=== PATIENT | male | born 1985 | race Caucasian/White ===

== ENCOUNTER 2017-12-15 08:28 | Outpatient (RCR) | payer BC, OTHER ==
[~2017-12-15 08:28] MED LIST: ACYC-1 PO; ALB18R INH; AZIT-18 PO; BONIVA; FAMO20TA28 PO; GLUC1TAB13 PO; HYDR473S4 PO; KET10 PO; LEVO500T PO; LOR5/325 PO; MULT1TAB64 PO; NOR10/325 PO; NYQUIL; OMEP20CA68 PO; PANT40TA65 PO; PRE1 PO; PRED-420 PO; SULF-198 PO; TACR1CAP15 PO; TACR5CAP PO; TACR5CAP13 PO; VALA100062 PO; [UNRECOGNIZED DRUG - OTHER]
[2017-12-15 08:34] VITALS: BP 137/88
[2017-12-15] MEDS ORDERED: AZIT-17 PO (09:03)
[2017-12-15] MEDS ORDERED: PANT40TA65 PO (09:03)
[2017-12-15] MEDS ORDERED: TACR5CAP PO (09:03)
[2017-12-15 09:41] LABS: PLATELET COUNT, AUTOMATED 360 K/uL (150-450)
--- NOTE | 2017-12-15 12:22 | ONC Progress Note - NP.Halsey ---
Patient History Date of Service Dec 15, 2017 Reason For Visit/HPI Patient is seen in the clinic today for follow-up of his acute lymphoblastic leukemia, status post chemotherapy and allogeneic bone marrow transplant currently in remission. Patient also is followed for graft versus host disease. In addition a short reports that he traveled back from [place] and over the last several days has had cough and congestion, he can hear the wheezing in his lower right lung and generally has increased fatigue and is not feeling well. He denies any bone aches no sinus congestion or runny nose. Patient is not sure if he's had any fever he denies any chills. All other systems are within normal limits and without change. Patient does have 3 skin lesions 1 on his neck on the right side one on the left side and one in the middle of his back that appear to be dry patchy areas and then with scratching" bleeding and then scab over and have not healed in over a year. Patient has not seen dermatology for these. Problem List (1) GERD (gastroesophageal reflux disease) (2) Pneumonia (3) Vozre-rchrdz-swio disease (4) Acute lymphoblastic leukemia (ALL) in remission Oncology History The patient is a 32-year-old male who was diagnosed in April 2003 with acute lymphoblastic leukemia and, as per patient, he was treated with chemotherapy for seven months, but he did not have any maintenance therapy after that. He had a relapse in April 2006, treated with chemotherapy for one month followed by allogenic bone marrow transplant from his sister, who was a donor, and, as per patient, he had his treatment at [facility]. He developed graft versus host disease and was on immunosuppressant, which was discontinued by the patient two and a half years ago. He moved to [place] in July 2013. He has been seen by Marizol Taylor PA-C, his primary care Psychosocial History Social History The patient is . He does not have children of his own but they have a foster child who is approximately 8 months old. 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 He is exposed to dust, diesel exhaust, solvents, brake flask cleaner. He denies any abuse of tobacco, alcohol or drugs. Smoking History: No Smoking Status: Never Smoker Exposure to Second Hand Smoke?: No Medications and Allergies Active Scripts Azithromycin (Z-PACK) 250 Mg Tablet, 0 PO QDAY, #6 DOSE-PACK Prov:DENISSE WILSON-BC, ONC 12/15/17 Tacrolimus (TACROLIMUS) 5 Mg Capsule, 5 MG PO DAILY for 90 Days, #90 CAPSULE 3 Refills Prov:DENISSE WILSON Oh BROWN, ONC 12/15/17 Pantoprazole Sodium (PANTOPRAZOLE SODIUM) 40 Mg Tablet.dr, 1 TAB PO QDAY for 90 Days, #90 TAB 3 Refills Take 1 tab 30 mins before breakfast. Prov:ALONZO WILSONBATSHEVA BROWN, ONC 12/15/17 Allergies: Coded Allergies: amphotericin B (Verified Allergy, Severe, ANAPHYLAXIS, 12/17/16) Penicillins (Verified Allergy, Mild, RASH, 12/17/16) A CHILD AGE 4 Review of System/Physical Exam Review of Systems All Systems Reviewed/Normal: Yes, Except as Noted Constitutional: Positive for Recent Infection Respiratory: Positive for Cough, Positive for Expectoration, Positive for Shortness of Breath, Positive for Wheezing HEENT: Other (ear pain in his left ear experienced with traveling in an airplane, this is resolved) Hematologic: Positive for Fatigue, Positive for Weakness Skin: Positive for Other (3 skin lesions that are keratotic and will not heal. Patient is referred to dermatology) Physical Exam Vital Signs Temperature: 97.6 Pulse: 111 BP Systolic: 137 BP Diastolic: 88 Respiratory Rate: 16 O2 SAT: 94 O2 Delivery: Height (inches) 66.00 Weight lb: 131 Weight oz: 6.0 Weight Kg (Constantine): Pain: 0 ECOG Score: 1 General: Stable, Well Developed, Well Nourished, Not In Acute Distress, Other ( it appears that patient does not feel well) HEENT: No Trauma, No Conjunctivitis, No Icterus, No Mucositis, No Oral Thrush, No Sinus Tenderness, Other (bilateral ear canals are unremarkable) Neck: Supple Lungs: Not Clear to Auscultation (right lower lobe and right upper lobe wheezing with inhalation and exhalation decreased lung sounds in the left lower lobe that are distant) Heart: Regular Rate, Regular Rhythm, No Gallops Abdomen: Soft and Nontender, No Hepatosplenomegaly Extremities: No Cyanosis, No Clubbing, No Edema Lymphadenopathy: No Cervical, No Subclavicular Psychiatric: Mood appears normal, Affect appears normal Skin: Other (30.5-1 mm lesions over the neck presenting as a keratotic lesion and have been scratched and are currently scabbed over. Patient reports that they have not healed and over a year.) Diagnostic Studies Diagnostic Studies Laboratory Laboratory Tests 12/15/17 09:15 Laboratory Tests 12/15/17 09:15: White Blood Count 13.0, Red Blood Count 5.01, Hemoglobin 15.6, Hematocrit 45.7, Mean Corpuscular Volume 91.2, Mean Corpuscular Hemoglobin 31.2, Mean Corpuscular Hemoglobin Concent 34.2, Red Cell Distribution Width 14.1, Platelet Count 360, Mean Platelet Volume 7.3, Neutrophils (%) (Auto) 54.8, Lymphocytes (% ) (Auto) 34.2, Monocytes (%) (Auto) 8.7, Eosinophils (%) (Auto) 1.5, Basophils ( %) (Auto) 0.8, Nucleated RBC Relative Count (auto) 0.0, Neutrophils # (Auto) 7.1 , Lymphocytes # (Auto) 4.4, Monocytes # (Auto) 1.1, Eosinophils # (Auto) 0.2, Basophils # (Auto) 0.1, Nucleated RBC Absolute Count (auto) 0.00, Sodium Level 138, Potassium Level 4.2, Chloride Level 100, Carbon Dioxide Level 24, Blood Urea Nitrogen 11, Creatinine 0.70, Glomerular Filtration Rate Calc > 60.0, Random Glucose 93, Uric Acid 5.5, Calcium Level 9.4, Total Bilirubin 0.4, Aspartate Amino Transf (AST/SGOT) 29, Alanine Aminotransferase (ALT/SGPT) 80, Alkaline Phosphatase 95, Lactate Dehydrogenase 451, Total Protein 7.4, Albumin 4.0 Assessment and Plan Assessment & Plan 1. Acute lymphoblastic leukemia, status post chemotherapy in 2002 with relapse in 2005, status post chemotherapy followed by allogeneic bone marrow transplant , currently in remission. His CBC previously has been totally normal. WBC is elevated today. Patient has cough, wheezing and generally is not feeling well. I will treat him with a Z-Sathya and if symptoms do not resolve he is to return to the clinic and we will do a chest x-ray. Patient will follow with Dr. Ann in 6 months with CBC, CMP, LDH and uric acid. Patient and verbalized understanding. 2. 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 The patient currently is on treatment with Prograf with control of his chronic fceqv-zkmqaw-gzba disease. We will continue the same dose. 3. High total protein with no monoclonal protein by serum protein electrophoresis. There was a faint band in the IgG lambda, which would be suggestive of a monoclonal protein or immune response, or it could be due to his chronic boyxu-hbofcj-mtas disease. We will continue to monitor. His total protein previously was 8.3 and is normal at 7.4 today. 4. Depression. I am planning to put him on Cymbalta, which he used in the past when he was depressed, 60 mg daily. No change in this dose today. PLAN 1. Cymbalta 60 mg daily. 2. Prograf 5 mg daily. Refilled today 3. Protonix 40 mg daily. Refilled today. 4. The patient is to return in 6 months with CBC, chemistry panel, LDH, and uric acid. 5. The patient is to contact us for any new concerns or complaints. I personally spent a total of 30 minutes. Of that 30 minutes was counseling/ coordination of patient's care. See my note above for details. Copies to: MARIZOL TAYLOR PA-C, NANCY J WELT EDGE ROUNDER-BC, ONC Dec 15, 2017 12:22
== END 2017-12-16 07:36 | disposition home or self-care (01) ==
LOC: ONC 08:28
PROVIDERS: ATTEND Internal Medicine Hematology
DX: C91.01 Acute lymphoblastic leukemia, in remission (principal); Z92.21 Personal history of antineoplastic chemotherapy; D89.811 Chronic graft-versus-host disease; F32.9 Major depressive disorder, single episode, unspecified; Z79.899 Other long term (current) drug therapy; R05 Cough; R06.02 Shortness of breath; R53.83 Other fatigue; R53.1 Weakness
CPT/HCPCS: 36415; 82040; 82247; 82310; 82374; 82435; 82565; 82947; 83615; 84075; 84132; 84155; 84295; 84450; 84460; 84520; 84550; 85025; 99212

== ENCOUNTER 2018-01-20 19:22 | Emergency (ER) | payer SELFPAY ==
[~2018-01-20 19:22] MED LIST changes: +AZIT-17 PO
--- NOTE | 2018-01-20 20:04 | ER Report ---
History and Physical Time Seen By MD: 19:53 Hx. of Stated Complaint: patient states that this afternoon he spiked a fever of 103; patient also fells "terrible" all over and vomited on the car ride here HPI/ROS CHIEF COMPLAINT: Fever, fatigue, SOB HISTORY OF PRESENT ILLNESS: 32 yo male presents with complaints of fever, chills , body aches, and SOB that started today. Pt states that his fever at home was 103.0. Pt denies cough or nasal congestion. Pt states nausea and reported vomiting while at ER waiting for assessment. Denies vomiting. Pt reports taking acetaminophen with minimal relief. Pt reports he had been previously treatment for pneumonia in November,. REVIEW OF SYSTEMS: Respiratory: No cough, complaints of SOB without exertion. Cardiovascular: No chest pain, no palpitations. Gastrointestinal: States vomiting, no abdominal pain. Musculoskeletal: No back pain. Allergies: Coded Allergies: amphotericin B (Verified Allergy, Severe, ANAPHYLAXIS, 12/17/16) Penicillins (Verified Allergy, Mild, RASH, 12/17/16) A CHILD AGE 4 Home Meds Active Scripts Promethazine Hcl (PROMETHAZINE HCL) 25 Mg Tablet, 25 MG PO Q8H Y for NAUSEA/ VOMITING, #12 TAB Prov:CHICO CHÁVEZ [facility] 01/20/18 Levofloxacin 750 Mg Tab (LEVAQUIN 750 MG TAB) 750 Mg Tablet, 750 MG PO DAILY, # 9 TAB Prov:CHICO CHÁVEZ [facility] 01/20/18 Tacrolimus (TACROLIMUS) 5 Mg Capsule, 5 MG PO DAILY for 90 Days, #90 CAPSULE 3 Refills Prov:DENISSE WILSON-SUSSY, ONC 12/15/17 Pantoprazole Sodium (PANTOPRAZOLE SODIUM) 40 Mg Tablet.dr, 1 TAB PO QDAY for 90 Days, #90 TAB 3 Refills Take 1 tab 30 mins before breakfast. 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 Patient has surgical history of port placement 2, bone marrow transplant, bone marrow biopsy. Reviewed Nurses Notes: Yes Hx Smoking: No Smoking Status: Never Smoker Exposure to Second Hand Smoke?: No Hx Substance Use Disorder: No Hx Alcohol Use: No Constitutional Vital Sign - Last 24 Hours 01/20/18 01/20/18 01/20/18 01/20/18 19:26 19:56 20:00 20:05 Temp 99.8 98.1 Pulse 134 Resp 20 B/P (MAP) 113/81 124/96 (105) 118/83 (95) Pulse Ox 93 O2 Delivery Room Air 01/20/18 01/20/18 01/20/18 01/20/18 20:22 20:30 20:52 21:02 Pulse 138 134 B/P (MAP) 114/83 (93) 127/87 (100) Pulse Ox 95 94 01/20/18 01/20/18 01/20/18 01/20/18 21:07 21:28 21:30 21:37 Pulse 132 133 143 B/P (MAP) 125/87 (100) Pulse Ox 94 94 92 01/20/18 01/20/18 01/20/18 01/20/18 22:00 22:05 22:35 22:40 Pulse 141 138 135 B/P (MAP) 121/85 (97) Pulse Ox 90 90 01/20/18 01/20/18 01/20/18 22:57 22:59 23:02 Temp 98.3 Pulse 134 B/P (MAP) 117/69 (85) Pulse Ox 88 Physical Exam General Appearance: The patient is alert, has no immediate need for airway protection and no current signs of toxicity. Eyes: Pupils equal and round no injection. Respiratory: Chest is non tender, lungs are diminished in bilateral bases to auscultation. Cardiac: regular rate and rhythm Gastrointestinal: Abdomen is soft and non tender, no masses, bowel sounds normal. Musculoskeletal: Neck: Neck is supple and non tender. Extremities have full range of motion and are non tender. Skin: No rashes or lesions. DIFFERENTIAL DIAGNOSIS: After history and physical exam differential diagnosis was considered for influenza, pneumonia, or lower respiratory infection. Medical Decision Making Data Points Result Diagram: 01/20/18211801/20/182118 Laboratory Hematology Test 01/20/18 19:10 01/20/18 21:19 01/20/18 22:36 Influenza Virus Type A (PCR) Negative (NEGATIVE) Influenza Virus Type B (PCR) Negative (NEGATIVE) Red Blood Count 4.50 M/uL (4.00-5.60) Mean Corpuscular Volume 91.3 fL (80.0-96.0) Mean Corpuscular Hemoglobin 32.3 pg (26.0-33.0) Mean Corpuscular Hemoglobin Concent 35.3 g/dL (32.0-36.0) Red Cell Distribution Width 14.0 % (11.5-14.5) Mean Platelet Volume 7.1 fL (7.2-11.1) Neutrophils (%) (Auto) 92.2 % (39.4-72.5) Lymphocytes (%) (Auto) 7.1 % (17.6-49.6) Monocytes (%) (Auto) 0.5 % (4.1-12.4) Eosinophils (%) (Auto) 0.0 % (0.4-6.7) Basophils (%) (Auto) 0.2 % (0.3-1.4) Nucleated RBC Relative Count (auto) 0.0 /100WBC Neutrophils # (Auto) 15.0 K/uL (2.0-7.4) Lymphocytes # (Auto) 1.2 K/uL (1.3-3.6) Monocytes # (Auto) 0.1 K/uL (0.3-1.0) Eosinophils # (Auto) 0.0 K/uL (0.0-0.5) Basophils # (Auto) 0.0 K/uL (0.0-0.1) Nucleated RBC Absolute Count (auto) 0.00 K/uL Sodium Level 137 mmol/L (137-145) Potassium Level 3.1 mmol/L (3.5-5.0) Chloride Level 108 mmol/L (98-107) Carbon Dioxide Level 20 mmol/L (22-30) Blood Urea Nitrogen 9 mg/dl (9-21) Creatinine 0.70 mg/dl (0.66-1.25) Glomerular Filtration Rate Calc > 60.0 Random Glucose 86 mg/dl (75-110) Calcium Level 6.8 mg/dl (8.4-10.2) Total Bilirubin 0.7 mg/dl (0.2-1.3) Aspartate Amino Transf (AST/SGOT) 23 U/L (0-35) Alanine Aminotransferase (ALT/SGPT) 62 U/L (0-56) Alkaline Phosphatase 76 U/L (0-126) Total Protein 5.6 gm/dl (6.3-8.2) Albumin 2.9 g/dl (3.5-5.0) Lactate 2.2 mmol/L (0.7-2.1) Chemistry Test 01/20/18 19:10 01/20/18 21:19 01/20/18 22:36 Influenza Virus Type A (PCR) Negative (NEGATIVE) Influenza Virus Type B (PCR) Negative (NEGATIVE) White Blood Count 16.3 k/uL (4.5-11.0) Red Blood Count 4.50 M/uL (4.00-5.60) Hemoglobin 14.5 g/dL (14.0-18.0) Hematocrit 41.0 % (42.0-52.0) Mean Corpuscular Volume 91.3 fL (80.0-96.0) Mean Corpuscular Hemoglobin 32.3 pg (26.0-33.0) Mean Corpuscular Hemoglobin Concent 35.3 g/dL (32.0-36.0) Red Cell Distribution Width 14.0 % (11.5-14.5) Platelet Count 312 K/uL (150-450) Mean Platelet Volume 7.1 fL (7.2-11.1) Neutrophils (%) (Auto) 92.2 % (39.4-72.5) Lymphocytes (%) (Auto) 7.1 % (17.6-49.6) Monocytes (%) (Auto) 0.5 % (4.1-12.4) Eosinophils (%) (Auto) 0.0 % (0.4-6.7) Basophils (%) (Auto) 0.2 % (0.3-1.4) Nucleated RBC Relative Count (auto) 0.0 /100WBC Neutrophils # (Auto) 15.0 K/uL (2.0-7.4) Lymphocytes # (Auto) 1.2 K/uL (1.3-3.6) Monocytes # (Auto) 0.1 K/uL (0.3-1.0) Eosinophils # (Auto) 0.0 K/uL (0.0-0.5) Basophils # (Auto) 0.0 K/uL (0.0-0.1) Nucleated RBC Absolute Count (auto) 0.00 K/uL Glomerular Filtration Rate Calc > 60.0 Calcium Level 6.8 mg/dl (8.4-10.2) Total Bilirubin 0.7 mg/dl (0.2-1.3) Aspartate Amino Transf (AST/SGOT) 23 U/L (0-35) Alanine Aminotransferase (ALT/SGPT) 62 U/L (0-56) Alkaline Phosphatase 76 U/L (0-126) Total Protein 5.6 gm/dl (6.3-8.2) Albumin 2.9 g/dl (3.5-5.0) Lactate 2.2 mmol/L (0.7-2.1) Microbiology Microbiology Date/Time Source Procedure Growth Status 01/20/18 22:36 Blood Blood Culture - Final Resulted 01/20/18 22:36 Blood Blood Culture - Preliminary Resulted 01/20/18 21:14 Blood Blood Culture - Final Resulted 01/20/18 21:14 Blood Blood Culture - Preliminary Resulted EKG/Imaging Imaging 2 VIEWS CHEST INDICATION: Shortness of breath and vomiting. COMPARISON: 10/30/2015. FINDINGS: Cardiomediastinal silhouette and pulmonary vessels within normal limits. There is no focal infiltrate or lobar consolidation. There is no pneumothorax or pleural effusion. Scarring is again seen right lower lobe. No discrete nodule. Upper abdomen is unremarkable. No acute bony abnormality. Stable compressions of several vertebral bodies at thoracolumbar junction. Small tubing is seen in the soft tissues of the left upper chest. This is unchanged. IMPRESSION: 1. No acute cardiopulmonary process. Report Dictated By: Lizandro Olivo at 01/20/2018 9:21 PM Report E-Signed By: Lizandro Olivo at 01/20/2018 9:23 PM ED Course/Re-evaluation ED Course Patient was admitted on exam room, history and physical were obtained. Differential diagnoses were considered. On examination lungs are clear, heart is regular, abdomen is soft nontender. A CBC, CMP, influenza screen were done. Influenza screen was negative. CBC showed an elevated white count of 16,000 with a left shift. CMP was unremarkable. Chest x-ray was read by the radiologist as no acute cardiopulmonary processes. However little to there does appear to be a infiltrate developing in the right upper lobe. I discussed findings with patient. Patient states he still feeling ill. Patient this time is received 2 L of normal saline. I decided that we would get a second blood culture, as well as a lactate at this time. Lactate came back at 2.2. He is slightly elevated. I discussed the case with Dr. Cooper, hospitals, I discussed with him the patient prefer not to be admitted to the hospital, the my plan was to discharge the patient home with follow-up with his primary care provider on Thursday. Dr. Cooper felt that that would be a reasonable plan with this patient. I discussed this with the patient. I expressed that they should have a very low threshold to return to the emergency room. I would like him to follow-up with Marizol Taylor PA-C on Thursday. They're to return if condition worsens at all. Patient is verbalized understanding and agreement. We'll go ahead and discharge patient home at this time. He will receive a dose of Levaquin here in the emergency room and we will continue that at home. Decision to Disposition Date: Jan 20, 2018 Decision to Disposition Time: 23:17 Depart Departure Latest Vital Signs Vital Signs Date Time Temp Pulse Resp B/P (MAP) Pulse Ox O2 Delivery O2 Flow Rate FiO2 01/20/18 23:02 134 88 01/20/18 22:59 98.3 01/20/18 22:57 117/69 (85) 01/20/18 19:26 20 Room Air Impression: Primary Impression: Pneumonia Condition: Improved Disposition: HOME OR SELF-CARE Referrals: MARIZOL TAYLOR PA-C (PCP) New Scripts Promethazine Hcl (PROMETHAZINE HCL) 25 Mg Tablet 25 MG PO Q8H Y for NAUSEA/VOMITING, #12 TAB Prov: CHICO CHÁVEZ 01/20/18 Levofloxacin 750 Mg Tab (LEVAQUIN 750 MG TAB) 750 Mg Tablet 750 MG PO DAILY, #9 TAB Prov: CHICO CHÁVEZ 01/20/18 Patient Instructions: Community Acquired Pneumonia (ED) Additional Instructions: Increase fluid intake. Get plenty of rest. Take Tylenol or Ibuprofen as needed for pain. Follow up with your primary care provider on Thursday. Return to the ER if condition worsens, have a low threshold for returning to the clinic. Problem Qualifiers Primary Impression: Pneumonia Pneumonia type: due to unspecified organism Laterality: right Lung location : upper lobe of lung Qualified Codes: J18.1 - Lobar pneumonia, unspecified organism CHICO CHÁVEZ Jan 20, 2018 20:04
[2018-01-20 21:24] LABS: PLATELET COUNT, AUTOMATED 312 K/uL (150-450)
--- NOTE | 2018-01-20 21:26 | RADIOLOGY IMAGING REPORT ---
FACILITY: [facility] PATIENT NAME: Lucio Lloyd : 1985 MR: [id number] V: [id number] EXAM DATE: ORDERING PHYSICIAN: CHICO CHÁVEZ TECHNOLOGIST: Location: [facility] - [place] Patient: Lucio Lloyd : 1985 Visit/Account:[id number] Date of Sevice: 01/20/2018 2 VIEWS CHEST INDICATION: Shortness of breath and vomiting. COMPARISON: 10/30/2015. FINDINGS: Cardiomediastinal silhouette and pulmonary vessels within normal limits. There is no focal infiltrate or lobar consolidation. There is no pneumothorax or pleural effusion. Scarring is again seen right lower lobe. No discrete nodule. Upper abdomen is unremarkable. No acute bony abnormality. Stable compressions of several vertebral alden dies at thoracolumbar junction. Small tubing is seen in the soft tissues of the left upper chest. Thi s is unchanged. IMPRESSION: 1. No acute cardiopulmonary process. Report Dictated By: Lizandro Olivo at 01/20/2018 9:21 PM Report E-Signed By: Lizandro Olivo at 01/20/2018 9:23 PM WSN:[id number]
[2018-01-20] MEDS ORDERED: ACETAMINOPHEN 500 MG TAB PO ONE (21:30)
[2018-01-20] MEDS ORDERED: ONDANSETRON 4 MG/2 ML VIAL IVP ONE (21:30)
[2018-01-20] MEDS ORDERED: ACETAMINOPHEN(*)1000 MG/100 ML 100 ML IVPB ONE (21:40)
[2018-01-20 22:57] VITALS: BP 117/69
[2018-01-20] MEDS ORDERED: ONDANSETRON 4 MG ODT TH SL ONE (23:10)
[2018-01-20] MEDS ORDERED: LEVOFLOXACIN 750 MG TAB PO ONE (23:10)
[2018-01-20] MEDS ORDERED: LEVO750T44 PO (23:15)
[2018-01-20] MEDS ORDERED: PROM-110 PO (23:15)
[2018-01-21] MEDS ORDERED: NS(*) 0.9% 1000 ML BAG 1,000 ML IV ONE ×2 (01:20)
== END 2018-01-20 23:40 | disposition home or self-care (01) ==
LOC: ER 20:03
DX: J18.1 Lobar pneumonia, unspecified organism (principal); B95.5 Unspecified streptococcus as the cause of diseases classified elsewhere
CPT/HCPCS: 36415; 71046; 83605; 85025; 87040; 87502; 96374; 96375; 99284; J0131; J2405; J7030; S0119; 82040; 82247; 82310; 82374; 82435; 82565; 82947; 84075; 84132; 84155; 84295; 84450; 84460; 84520; 87077

== ENCOUNTER 2018-01-21 09:54 | Inpatient (IN) | payer OTHER ==
[2018-01-21] VITALS (32 sets, daily range): BP systolic 65–119; BP diastolic 44–90
[~2018-01-21] VITALS: Ht 167.6 cm; Wt 68.9 kg
[~2018-01-21 09:54] MED LIST changes: +LEVO750T44 PO; +PROM-110 PO
--- NOTE | 2018-01-21 10:03 | ER Report ---
History and Physical Time Seen By MD: 10:00 HPI/ROS CHIEF COMPLAINT: Fever, positive blood cultures HISTORY OF PRESENT ILLNESS: Patient is a 32-year-old male with past medical history significant for acute lymphocytic leukemia. Status post bone marrow transplant approximately 12 years ago. He was seen in the emergency department last night for fever of 103 with shaking chills and elevated white count at 16, 000. No specific source of infection was found however there were some concern about possible developing infiltrate in the right upper lobe of the lung. Please see the note from 01/20/2018 for specifics for that visit. Patient was given IV Levaquin at that time case was discussed with the on-call hospitalist as patient wanted to try to be treated at home. Plan was formulated that he would be placed on oral Levaquin as an outpatient and follow-up closely. I was informed by nursing staff that he had 2 positive blood cultures this morning and I directed nursing staff to have the patient come back for admission. Patient was found to be tachycardic and hypotensive initially on admission with some confusion. In any of his antibiotics yet. Patient is feeling weak . Denies any chest pain or pressure. Denies abdominal pain nausea vomiting or diarrhea. REVIEW OF SYSTEMS: Constitutional: No fever, no chills. Eyes: No discharge. ENT: No sore throat. Cardiovascular: No chest pain, no palpitations. Respiratory: No cough, no shortness of breath. Gastrointestinal: No abdominal pain, no vomiting. Genitourinary: No hematuria. Musculoskeletal: No back pain. Skin: No rashes. Neurological: No headache. Allergies: Coded Allergies: amphotericin B (Verified Allergy, Severe, ANAPHYLAXIS, 12/17/16) Penicillins (Verified Allergy, Mild, RASH, 12/17/16) A CHILD AGE 4 Home Meds Active Scripts Tacrolimus (TACROLIMUS) 5 Mg Capsule, 5 MG PO DAILY for 90 Days, #90 CAPSULE 3 Refills Prov:DENISSE WILSON-BC, ONC 12/15/17 Pantoprazole Sodium (PANTOPRAZOLE SODIUM) 40 Mg Tablet.dr, 1 TAB PO QDAY for 90 Days, #90 TAB 3 Refills Take 1 tab 30 mins before breakfast. Prov:DENISSE WILSON-SUSSY, ONC 12/15/17 Discontinued Scripts Promethazine Hcl (PROMETHAZINE HCL) 25 Mg Tablet, 25 MG PO Q8H Y for NAUSEA/ VOMITING, #12 TAB Prov:CHICO CHÁVEZ ACCOUNT SUPPORT MANAGER 01/20/18 Levofloxacin 750 Mg Tab (LEVAQUIN 750 MG TAB) 750 Mg Tablet, 750 MG PO DAILY, # 9 TAB Prov:CHICO CHÁVEZ ACCOUNT SUPPORT MANAGER 01/20/18 Azithromycin (Z-PACK) 250 Mg Tablet, 0 PO QDAY, #6 DOSE-PACK Prov:DENISSE WILSON ACCOUNT SUPPORT MANAGER-BC, ONC 12/15/17 Past Medical/Surgical History Acute lymphocytic anemia Hx Smoking: No Smoking Status: Never Smoker Exposure to Second Hand Smoke?: No Hx Substance Use Disorder: No Hx Alcohol Use: No Constitutional Vital Sign - Last 24 Hours 01/21/18 01/21/18 01/21/18 01/21/18 10:05 10:11 10:14 10:16 Temp 97.6 Pulse 124 128 Resp 16 24 B/P (MAP) 75/46 85/52 (63) 85/58 (67) Pulse Ox 91 94 O2 Delivery Room Air 01/21/18 01/21/18 01/21/18 01/21/18 10:19 10:20 10:24 10:29 Pulse 126 132 126 Resp 27 26 23 B/P (MAP) 70/53 (59) Pulse Ox 93 95 90 01/21/18 01/21/18 01/21/18 01/21/18 10:30 10:34 10:39 10:40 Pulse 128 125 Resp 16 B/P (MAP) 86/45 (59) 74/43 (53) Pulse Ox 90 92 01/21/18 01/21/18 01/21/18 01/21/18 10:49 10:50 10:55 11:00 Pulse 124 205 128 Resp 13 29 16 B/P (MAP) 67/49 (55) 85/50 (62) Pulse Ox 93 87 93 01/21/18 01/21/18 11:05 11:10 Pulse 134 131 Resp 28 42 B/P (MAP) 101/57 (72) Pulse Ox 91 89 Physical Exam General/Constitutional: Patient is awake, alert, ill-appearing but in no acute respiratory distress Head: Normocephalic and atraumatic. Eyes: Conjunctival clear, Pupils are equal and reactive to light. Extraocular muscles are intact and symmetrical. Sclera are clear and anicteric. Ears:External canals are clear. Tympanic membranes are clear with normal landmarks and light reflex. Nares: No rhinorrhea or bleeding. Turbinates are pink and moist. Oropharyngeal: Mucous membranes are moist. There is no pharyngeal erythema or exudate. There are no palatal petechiae. Uvula is midline and symmetrical. Neck: Supple, no adenopathy. Cardiovascular: Heart is regular rate and rhythm without audible murmurs, rubs or gallops. Pulmonary: Lungs are clear to auscultation bilaterally. There are no wheezes, rales, or rhonchi. Chest rise is symmetrical Abdomen: Soft, nontender, no guarding or peritoneal signs. Extremities: No gross deformities, No peripheral cyanosis. Able to move all 4 extremities. Neuro: Alert and oriented X3, global weakness but no focal neurological deficits Skin: No rashes, skin is warm dry and well perfused. Medical Decision Making Data Points Result Diagram: 01/21/18 1027 01/21/18 1332 Laboratory Hematology Test 01/21/18 10:27 01/21/18 11:10 Red Blood Count 4.54 M/uL (4.00-5.60) Mean Corpuscular Volume 92.9 fL (80.0-96.0) Mean Corpuscular Hemoglobin 32.5 pg (26.0-33.0) Mean Corpuscular Hemoglobin Concent 35.0 g/dL (32.0-36.0) Red Cell Distribution Width 14.6 % (11.5-14.5) Mean Platelet Volume 7.7 fL (7.2-11.1) Neutrophils (%) (Auto) 98.2 % (39.4-72.5) Lymphocytes (%) (Auto) 1.4 % (17.6-49.6) Monocytes (%) (Auto) 0.2 % (4.1-12.4) Eosinophils (%) (Auto) 0.0 % (0.4-6.7) Basophils (%) (Auto) 0.2 % (0.3-1.4) Nucleated RBC Relative Count (auto) 0.1 /100WBC Neutrophils # (Auto) 16.3 K/uL (2.0-7.4) Lymphocytes # (Auto) 0.2 K/uL (1.3-3.6) Monocytes # (Auto) 0.0 K/uL (0.3-1.0) Eosinophils # (Auto) 0.0 K/uL (0.0-0.5) Basophils # (Auto) 0.0 K/uL (0.0-0.1) Nucleated RBC Absolute Count (auto) 0.02 K/uL Prothrombin Time 17.8 seconds (12.0-14.4) Prothromb Time International Ratio 1.45 Activated Partial Thromboplast Time 40 seconds (23-35) Total Bilirubin 0.9 mg/dl (0.2-1.3) Aspartate Amino Transf (AST/SGOT) 54 U/L (0-35) Alanine Aminotransferase (ALT/SGPT) 74 U/L (0-56) Alkaline Phosphatase 93 U/L (0-126) Troponin I 0.022 ng/ml Total Protein 6.3 gm/dl (6.3-8.2) Albumin 3.5 g/dl (3.5-5.0) Urine Color Corie Urine Clarity Cloudy Urine pH 5.0 pH (4.8-9.5) Urine Specific Pooler 1.029 Urine Protein 30 mg/dL (NEGATIVE) Urine Glucose (UA) Negative mg/dL (NEGATIVE) Urine Ketones Trace mg/dL (NEGATIVE) Urine Blood Negative (NEGATIVE) Urine Nitrite Negative (NEGATIVE) Urine Bilirubin Small (NEGATIVE) Urine Urobilinogen 4.0 mg/dL (0.2-1.9) Urine Leukocyte Esterase Negative (NEGATIVE) Urine RBC <1 /HPF (0-2/HPF) Urine WBC 6 /HPF (0-5/HPF) Urine Squamous Epithelial Cells None /LPF (NONE-FEW) Urine Amorphous Crystals Few /HPF Urine Bacteria Few /HPF (NONE-FEW) Urine Hyaline Casts Many /LPF (NONE-FEW) Urine Mucus Few /HPF (NONE-FEW) Chemistry Test 01/21/18 10:27 01/21/18 11:10 White Blood Count 16.6 k/uL (4.5-11.0) Red Blood Count 4.54 M/uL (4.00-5.60) Hemoglobin 14.7 g/dL (14.0-18.0) Hematocrit 42.2 % (42.0-52.0) Mean Corpuscular Volume 92.9 fL (80.0-96.0) Mean Corpuscular Hemoglobin 32.5 pg (26.0-33.0) Mean Corpuscular Hemoglobin Concent 35.0 g/dL (32.0-36.0) Red Cell Distribution Width 14.6 % (11.5-14.5) Platelet Count 218 K/uL (150-450) Mean Platelet Volume 7.7 fL (7.2-11.1) Neutrophils (%) (Auto) 98.2 % (39.4-72.5) Lymphocytes (%) (Auto) 1.4 % (17.6-49.6) Monocytes (%) (Auto) 0.2 % (4.1-12.4) Eosinophils (%) (Auto) 0.0 % (0.4-6.7) Basophils (%) (Auto) 0.2 % (0.3-1.4) Nucleated RBC Relative Count (auto) 0.1 /100WBC Neutrophils # (Auto) 16.3 K/uL (2.0-7.4) Lymphocytes # (Auto) 0.2 K/uL (1.3-3.6) Monocytes # (Auto) 0.0 K/uL (0.3-1.0) Eosinophils # (Auto) 0.0 K/uL (0.0-0.5) Basophils # (Auto) 0.0 K/uL (0.0-0.1) Nucleated RBC Absolute Count (auto) 0.02 K/uL Prothrombin Time 17.8 seconds (12.0-14.4) Prothromb Time International Ratio 1.45 Activated Partial Thromboplast Time 40 seconds (23-35) Total Bilirubin 0.9 mg/dl (0.2-1.3) Aspartate Amino Transf (AST/SGOT) 54 U/L (0-35) Alanine Aminotransferase (ALT/SGPT) 74 U/L (0-56) Alkaline Phosphatase 93 U/L (0-126) Troponin I 0.022 ng/ml Total Protein 6.3 gm/dl (6.3-8.2) Albumin 3.5 g/dl (3.5-5.0) Urine Color Corie Urine Clarity Cloudy Urine pH 5.0 pH (4.8-9.5) Urine Specific Pooler 1.029 Urine Protein 30 mg/dL (NEGATIVE) Urine Glucose (UA) Negative mg/dL (NEGATIVE) Urine Ketones Trace mg/dL (NEGATIVE) Urine Blood Negative (NEGATIVE) Urine Nitrite Negative (NEGATIVE) Urine Bilirubin Small (NEGATIVE) Urine Urobilinogen 4.0 mg/dL (0.2-1.9) Urine Leukocyte Esterase Negative (NEGATIVE) Urine RBC <1 /HPF (0-2/HPF) Urine WBC 6 /HPF (0-5/HPF) Urine Squamous Epithelial Cells None /LPF (NONE-FEW) Urine Amorphous Crystals Few /HPF Urine Bacteria Few /HPF (NONE-FEW) Urine Hyaline Casts Many /LPF (NONE-FEW) Urine Mucus Few /HPF (NONE-FEW) Coagulation Test 01/21/18 10:27 Prothrombin Time 17.8 seconds Prothromb Time International Ratio 1.45 Activated Partial Thromboplast Time 40 seconds Urinalysis Test 01/21/18 11:10 Urine Color Corie Urine Clarity Cloudy Urine pH 5.0 pH (4.8-9.5) Urine Specific Pooler 1.029 Urine Protein 30 mg/dL (NEGATIVE) Urine Glucose (UA) Negative mg/dL (NEGATIVE) Urine Ketones Trace mg/dL (NEGATIVE) Urine Blood Negative (NEGATIVE) Urine Nitrite Negative (NEGATIVE) Urine Bilirubin Small (NEGATIVE) Urine Urobilinogen 4.0 mg/dL (0.2-1.9) Urine Leukocyte Esterase Negative (NEGATIVE) Urine RBC <1 /HPF (0-2/HPF) Urine WBC 6 /HPF (0-5/HPF) Urine Squamous Epithelial Cells None /LPF (NONE-FEW) Urine Amorphous Crystals Few /HPF Urine Bacteria Few /HPF (NONE-FEW) Urine Hyaline Casts Many /LPF (NONE-FEW) Urine Mucus Few /HPF (NONE-FEW) EKG/Imaging EKG Interpretation EKG shows sinus tachycardia with a ventricular rate of 123 bpm. There is a left axis deviation and voltage criteria for LVH. Monitor Interpretation: Sinus Tachycardia Imaging 01/21/2018 10:42:11 am chest x-ray is unchanged from prior. Obvious focal infiltrate noted FACILITY: [facility] [place] PATIENT NAME: Lucio Lloyd : 1985 MR: [id number] V: [id number] EXAM DATE: ORDERING PHYSICIAN: SUNITA DANGELO TECHNOLOGIST: [facility] Patient: Lucio Lloyd : 1985 Visit/Account:[id number] Date of Sevice: 01/21/2018 Exam type: CHEST SINGLE AP History: Fever Comparison: January 20, 2018. Findings: Scarring is reidentified in the right mid to lower lung field and lateral aspect of the left midlung.. There is a subtle area of airspace consolidation in the left lung base which may represent a small area of atelectasis or developing infiltrate. There is no evidence of pleural effusions or overt pulmonary edema. Cardiac swelling is normal in size. The trachea is in midline. IMPRESSION: 1. Scarring in the right mid to lower lung field and lateral aspect of the left midlung. Subtle areas airspace consolidation left lung base may represent a small area of atelectasis or developing infiltrate. Report Dictated By: Christy Salguero MD at 01/21/2018 10:42 AM Report E-Signed By: Christy Salguero MD at 01/21/2018 10:45 AM WSN:[email or web address] FACILITY: [facility] [place] PATIENT NAME: Lucio Lloyd : 1985 MR: [id number] V: [id number] EXAM DATE: [id number] ORDERING PHYSICIAN: SUNITA DANGELO TECHNOLOGIST: [facility] Patient: Lucio Lloyd : 1985 Visit/Account:[id number] Date of Sevice: 01/21/2018 INDICATION: post central line placement. DATE: 01/21/2018 12:09 PM. TECHNIQUE: CHEST SINGLE AP COMPARISON: January 21, 2018 radiograph FINDINGS: There is patchy right midlung opacity. No effusion. No pneumothorax. Normal expansion. The new right IJ central line likely terminates in the right atrium. There is no pneumothorax. IMPRESSION: 1. Patchy right midlung opacity could reflect aspiration or infection. 2. Right IJ central line likely terminates in the right atrium. No pneumothorax is identifiable on this supine view. Report Dictated By: Prabha Irwin MD at 01/21/2018 12:09 PM Report E-Signed By: Prabha Irwin MD at 01/21/2018 12:11 PM WSN:[id number] FACILITY: [facility] [place] PATIENT NAME: Lucio Lloyd : 1985 MR: [id number] V: [id number] EXAM DATE: ORDERING PHYSICIAN: SUNITA DANGELO TECHNOLOGIST: [facility] Patient: Lucio Lloyd : 1985 Visit/Account:[id number] Date of Sevice: 01/21/2018 INDICATION: worsening dyspnea. DATE: 01/21/2018 1:15 PM. TECHNIQUE: CHEST SINGLE AP COMPARISON: Multiple radiographs of the same day. FINDINGS: The right IJ central line has been retracted and is now likely in the SVC. Persistent patchy airspace opacity in the right midlung. IMPRESSION: Right IJ central line likely in the SVC. Report Dictated By: Prabha Irwin MD at 01/21/2018 1:15 PM Report E-Signed By: Prabha Irwin MD at 01/21/2018 1:17 PM WSN:[id number] ED Course/Re-evaluation Clinical Indication for ER IV: Hydration, IV Access ED Course 01/21/2018 10:27:50 am plan at this time will be to place bilateral IVs preferably large bore we will initiate sepsis protocol by starting with 30 mL/ kg bolus of normal saline. We will start the patient on broad-spectrum antibiotics since we are dealing with a gram-positive cocci we will go with 20 mg/kg of IV vancomycin and 2 g of cefepime. I we will repeat serial lactates we will draw another set of blood cultures we will do CBC completely metabolic panel chest x-ray urinalysis and troponin. We will also obtain EKG shouldn't will require admission to the hospital. So for scores 2 for elevated respiratory rate greater than 22 breaths per minute as well as hypotension with systolic blood pressure less than 100. This puts the patient at high risk for mortality due to sepsis. 01/21/2018 10:42:33 am I spoke with the on-call hospitalist Dr. Shoemaker. History physical exam pertinent data and data from last night's visit were reviewed. Plan at this time will be admitted to the ICU for rehydration under sepsis protocol we will give 20 mg/kg of IV vancomycin 2 g of cefepime. Patient is aware that he will be admitted questions or concerns at time of disposition. 01/21/2018 11:26:42 pm patient has persistently low blood pressure low map. This indicates septic shock. We will continue aggressive IV fluid hydration I will place a central line start the patient on Levothroid. 01/21/2018 12:25:37 pm Procedure: Central line placement. After verbal informed consent from patient; with the risks explained to be bleeding, infection, and collapsed lung; maximal sterile barrier technique was uses including cap, gown, sterile gloves, large sheet, hand washing and chlorhexidine prep. The area anesthetized with 1% lidocaine. The right internal jugular vein was identified using ultrasound guidance and then punctured with a 19 gauge finder needle, then a wire introducer was placed, a 7 Slovenian triple lumen was placed using Seldinger technique. Chest x-ray showed initial position of the central line to be too deep in the ventricle. Central line was removed approximately 6 cm repeat x-ray shows line in good position. Blood return low pressure, dark blood. Patient tolerated procedure well. CXR results: Appropriate line placement, and no pneumothorax. Xray was interpreted by myself. Radiologist interpretation is pending. The procedure was performed by myself. Dr. hSoemaker was made aware of the need for central line placement which is now in good position confirmed by chest x-ray. We will be starting Levophed for persistently low blood pressures and map. Both patient and family made aware they understand that he will be admitted to the ICU no questions or concerns at this time. 01/21/2018 12:55:35 pm patient breathing between 36 and 40 times a minute. Lungs sound clear. X-ray of post-line placement did not show any evidence of pneumothorax. We will reshoot an x-ray at this time to reconfirm and make sure the patient is not developing acute respiratory distress syndrome. We'll also obtain ABG. 01/21/2018 1:38:51 pm patient still hypotensive with low map I will increase in additional 1 L bolus, 100 mg of hydrocortisone, followed by increasing the Levophed drip 0.3 mcg/kg/m. 01/21/2018 2:22:26 pm blood pressure seems now to be responding to additional fluid bolus along with giving 100 mg of hydrocortisone in increasing the Levophed to 0.3 mcg/kg/m. Lactate is improved from 7 to 4. Recent is now making urine. Waiting results of the CT chest abdomen pelvis. Case was further discussed with Dr. Shoemaker to determine whether the patient could be admitted to this facility or should go to a higher level of care. I did check to see if any of the cruise are flying either fixed wing or helicopter and all services are not flying today due to weather conditions. 01/21/2018 3:01:56 pm patient's blood pressure has stabilized to be continue on 0.3 mcg/kilogram per minute of Levothroid. Current blood pressure is 110/72 with a map of 85. 01/21/2018 3:12:[address] scan of the abdomen and pelvis and chest reveals no acute process there is some suggestion of maybe since that stranding around the pancreas I have added a lipase at this point. I discussed the case again with Dr. Shoemaker we agree because the clinical condition seems to be improving we will admit the patient to the ICU here for continue treatment of sepsis. I updated the family that no questions or concerns at time of disposition. Decision to Disposition Date: Jan 21, 2018 Decision to Disposition Time: 15:12 Critical Care Time Total critical care time on this patient excluding procedures is 65 minutes. Approximately 45 minutes of direct patient care 10 minutes talking to consultants and 10 minutes updating family on ED course Depart Departure Latest Vital Signs Vital Signs Date Time Temp Pulse Resp B/P (MAP) Pulse Ox O2 Delivery O2 Flow Rate FiO2 01/21/18 11:10 131 42 101/57 (72) 89 01/21/18 10:05 97.6 Room Air Impression: Primary Impression: Severe sepsis Condition: Critical Disposition: Admitted from ER (to ICU under Dr Shoemaker) Referrals: BREN GRANT MD (PCP) SUNITA DANGELO MD Jan 21, 2018 10:03
[2018-01-21] MEDS ORDERED: VANCOMYCIN(*) 1 GM VIAL 1 GM, VANCOMYCIN (*) 0.5 GM VIAL 0.25 GM in NS(*) 0.9% 250 ML B... IVPB ONE (10:20)
[2018-01-21] MEDS ORDERED: NS 0.9% IV ONE ×2 (10:20→16:05)
[2018-01-21] MEDS ORDERED: CEFEPIME HCL 2 GM VIAL IVP ONE (10:20)
[2018-01-21 10:46] LABS: PLATELET COUNT, AUTOMATED 218 K/uL (150-450)
--- NOTE | 2018-01-21 10:50 | RADIOLOGY IMAGING REPORT ---
FACILITY: [facility] PATIENT NAME: Lucio Lloyd : 1985 MR: [id number] V: [id number] EXAM DATE: ORDERING PHYSICIAN: SUNITA DANGELO TECHNOLOGIST: Location: [facility] Patient: Lucio Lloyd : 1985 Visit/Account:[id number] Date of Sevice: 01/21/2018 Exam type: CHEST SINGLE AP History: Fever Comparison: January 20, 2018. Findings: Scarring is reidentified in the right mid to lower lung field and lateral aspect of the left midlung. . There is a subtle area of airspace consolidation in the left lung base which may represent a small area of atelectasis or developing infiltrate. There is no evidence of pleural effusions or overt pu lmonary edema. Cardiac swelling is normal in size. The trachea is in midline. IMPRESSION: 1. Scarring in the right mid to lower lung field and lateral aspect of the left midlung. Subtle areas airspace consolidation left lung base may represent a small area of atelectasis or devel oping infiltrate. Report Dictated By: Christy Salguero MD at 01/21/2018 10:42 AM Report E-Signed By: Christy Salguero MD at 01/21/2018 10:45 AM WSN:[email or web address]
[2018-01-21 10:51] LABS: INR 1.45
[2018-01-21] MEDS ORDERED: fentaNYL CITR 100 MCG/2 ML AMP IVP ONE ×3 (11:00→17:25)
[2018-01-21] MEDS ORDERED: NOREPINE BITAR* 4 MG/4 ML AMP 8 MG in D5W(*) 500 ML BAG 492 ML IV ONE (11:00)
--- NOTE | 2018-01-21 12:15 | RADIOLOGY IMAGING REPORT ---
FACILITY: [facility] [place] PATIENT NAME: Lucio Lloyd : 1985 MR: [id number] V: [id number] EXAM DATE: ORDERING PHYSICIAN: SUNITA DANGELO TECHNOLOGIST: Location: [facility] [place] Patient: Lucio Lloyd : 1985 Visit/Account:[id number] Date of Sevice: 01/21/2018 INDICATION: post central line placement. DATE: 01/21/2018 12:09 PM. TECHNIQUE: CHEST SINGLE AP COMPARISON: January 21, 2018 radiograph FINDINGS: There is patchy right midlung opacity. No effusion. No pneumothorax. Normal expansion. The new right IJ central line likely terminates in the right atrium. There is no pneumothorax. IMPRESSION: 1. Patchy right midlung opacity could reflect aspiration or infection. 2. Right IJ central line likely terminates in the right atrium. No pneumothorax is identifiable on th is supine view. Report Dictated By: Prabha Irwin MD at 01/21/2018 12:09 PM Report E-Signed By: Prabha Irwin MD at 01/21/2018 12:11 PM WSN:[id number]
--- NOTE | 2018-01-21 12:45 | RADIOLOGY IMAGING REPORT ---
FACILITY: [facility] - [place] PATIENT NAME: Lucio Lloyd : 1985 MR: [id number] V: [id number] EXAM DATE: ORDERING PHYSICIAN: SUNITA DANGELO TECHNOLOGIST: [place] [facility] [place]: Lucio Lloyd : 1985 Visit/Account:[id number] Date of Sevice: 01/21/2018 Exam type: CHEST SINGLE AP History: reposition central line Comparison: Arch 2017 at 11:36 AM. Findings: The right IJ catheter has been pulled back with the distal tip now projecting over the superior vena cava at the cavoatrial junction. No pneumothorax is seen. Patchy airspace consolidation in the righ t midlung field appears unchanged. Cardiac silhouette is normal IMPRESSION: 1. Right IJ catheter has been retracted with the distal tip now projecting over the superior vena ca va cava at the aortocaval junction. Patchy airspace consolidation right midlung field appears unchanged Report Dictated By: Christy Salguero MD at 01/21/2018 12:39 PM Report E-Signed By: Christy Salguero MD at 01/21/2018 12:42 PM WSN:[email or web address]
--- NOTE | 2018-01-21 13:20 | RADIOLOGY IMAGING REPORT ---
FACILITY: [facility] [place] PATIENT NAME: Lucio Lloyd : 1985 MR: [id number] V: [id number] EXAM DATE: ORDERING PHYSICIAN: SUNITA DANGELO TECHNOLOGIST: Location: [facility] [place] Patient: Lucio Lloyd : 1985 Visit/Account:[id number] Date of Sevice: 01/21/2018 INDICATION: worsening dyspnea. DATE: 01/21/2018 1:15 PM. TECHNIQUE: CHEST SINGLE AP COMPARISON: Multiple radiographs of the same day. FINDINGS: The right IJ central line has been retracted and is now likely in the SVC. Persistent patch y airspace opacity in the right midlung. IMPRESSION: Right IJ central line likely in the SVC. Report Dictated By: Prabha Irwin MD at 01/21/2018 1:15 PM Report E-Signed By: Prabha Irwin MD at 01/21/2018 1:17 PM WSN:[id number]
[2018-01-21] MEDS ORDERED: NS(*) 0.9% 1000 ML BAG 1,000 ML IV ONE (13:35)
[2018-01-21] MEDS ORDERED: HYDROCORTISONE 100 MG/2 ML IVP ONE (13:35)
[2018-01-21] MEDS ORDERED: IOPAMIDOL 76% 75 ML INFUS BTL 75 ML ONE (13:57)
--- NOTE | 2018-01-21 14:27 | EKG ---
FACILITY: [facility] PATIENT NAME: JAC MARTINEZ : [id number] MR: [id number] V: [id number] EXAM DATE: ORDERING PHYSICIAN: SUNITA DANGELO TECHNOLOGIST: LV Test Reason : TACHY Blood Pressure : / mmHG Vent. Rate : 123 BPM Atrial Rate : 123 BPM P-R Int : 130 ms QRS Dur : 082 ms QT Int : 344 ms P-R-T Axes : 049 -34 002 degrees QTc Int : 492 ms Sinus tachycardia Left axis deviation Moderate voltage criteria for LVH, may be normal variant Abnormal ECG When compared with ECG of 30-OCT-2015 08:44, T wave inversion now evident in Inferior leads Confirmed by CAYLA PANDA ([id number]) on 01/22/2018 6:38:46 AM Referred By: ANTOLIN Confirmed By:CAYLA PANDA
--- NOTE | 2018-01-21 15:05 | RADIOLOGY IMAGING REPORT ---
[place]AC[place] [facility] [place] NAME: Lucio Lloyd : 1985 MR: [id number] V: [id number] EXAM DATE: ORDERING PHYSICIAN: SUNITA DANGELO TECHNOLOGIST: Location: [facility] - [place] Patient: Lucio Lloyd : 1985 Visit/Account:[id number] Date of Sevice: 01/21/2018 EXAMINATION: CT chest with IV contrast CT abdomen with IV contrast CT pelvis with IV contrast HISTORY: Sepsis. COMPARISON: Chest radiograph from 01/21/2018. CT of the chest from 02/15/2015 was not accessible at t he time of dictation. TECHNIQUE: Axial images were taken through the chest, abdomen and pelvis during injection of nonion ic iodinated intravenous contrast. Sagittal and coronal reformatted images are also submitted. CONTRAST: 75 mL of IV [id number] One of the following dose optimization techniques was utilized in the performance of this exam: Autom ated exposure control; adjustment of the mA and/or kV according to the patient's size; or use of an i terative reconstruction technique. Specific details can be referenced in the facility's radiology C T exam operational policy. FINDINGS: CT THORAX: Lungs / pleura: Small bilateral pleural effusions, measuring 1.2 cm in thickness on the right and 0. 6 cm in thickness on the left. There is mild smooth pleural thickening along the borders of the right pleural effusion. Scattered subsegmental atelectasis and/or scarring in both lungs. Mediastinum / foreign: Fat stranding in the mediastinum. No mediastinal abscess. Heart / pericardium: Negative. Vessels: Negative. Musculoskeletal / Body wall: Multiple chronic thoracic vertebral body compression deformities. Diffu se heterogeneous attenuation of the bones with regions of lucency throughout the bones. Lymph node assessment: No lymphadenopathy by size criteria. Lower neck: Negative. CT ABDOMEN AND PELVIS: Liver / biliary: Diffuse hepatic steatosis. Pancreas: Negative. Spleen: Negative. Adrenal glands: Negative. Kidneys: A few small hypoattenuating foci in the left kidney cortex, the largest measuring 4 mm, too small to characterize. No hydronephrosis. Pelvic structures: The urinary bladder is decompressed by a Whitaker catheter. Bowel: Negative. The bowel is normal caliber without obvious focal wall thickening. The appendix is n ormal. Peritoneum / retroperitoneum / mesenteries: Trace free fluid in the abdomen and pelvis. Mild strandin g in the retroperitoneal fat bilaterally. There is mild fat stranding along the pancreas. No intraper itoneal free air. No abscess. Vessels: Negative. Musculoskeletal / Body wall: Diffuse heterogeneous attenuation of the bone marrow with lucencies thro ughout the bones. Chronic compression deformity of L2 with moderate height loss. Lymph node assessment: Negative. IMPRESSION: There are small bilateral pleural effusions. The pleura is thickened and along the margins of the rig ht pleural effusion suggesting this is either a chronic effusion or potentially infected collection/e mpyema. Scattered subsegmental atelectasis and/or scarring in the lungs. Stranding in the mediastinal fat. There is could represent mediastinitis or chronic posttreatment fabiano nges. No abscess. Trace free fluid in the abdomen and pelvis. No abscess in the abdomen or pelvis. Mild fat stranding along the pancreas. Correlate with labs for evidence of pancreatitis. Diffuse hepatic steatosis. Diffuse heterogeneous attenuation of the bone marrow and multiple vertebral compression deformities. This is likely sequela of the patient's known history of lymphocytic leukemia. Report Dictated By: Ashkan Hernandez MD at 01/21/2018 2:29 PM Report E-Signed By: Ashkan Hernandez MD at 01/21/2018 3:00 PM WSN:[id number]
[2018-01-21] MEDS: NS(*) 0.9% 500 ML BAG 500 ML IV PRN (16:19)
[2018-01-21] MEDS: NS(*) 0.9% 1000 ML BAG 1,000 ML IV PRN (16:40)
[2018-01-21] MEDS ORDERED: IBUPROFEN 600 MG TAB PO PRN (16:45)
[2018-01-21] MEDS ORDERED: NS(*) 0.9% 1000 ML BAG 1,000 ML IV PRN (16:45)
[2018-01-21] MEDS: CILASTA IVPB SCH (17:18)
[2018-01-21] MEDS: NS 0.9% IVPB SCH (17:18)
[2018-01-21] MEDS: IMIPENEM IVPB SCH (17:18)
[2018-01-21] MEDS: IBUPROFEN 200 MG TAB PO PRN (17:26)
--- NOTE | 2018-01-21 17:38 | History & Physical ---
History of Present Illness Chief Complaint Fever History of Present Illness This patient presented to the emergency room last night for complaints of fever. He refused admission at the time and was released on oral levofloxacin. Today his blood cultures were reported as positive and he was called back to the emergency room. He complains of fever up to 103. He did have some episodes of vomiting and diarrhea. He also reported a headache. He denies any cough. History Problems: (1) Wojbx-cfzotd-oagl disease Status: Acute (2) Acute lymphoblastic leukemia (ALL) in remission Status: Acute Home Meds Active Scripts Tacrolimus (TACROLIMUS) 5 Mg Capsule, 5 MG PO DAILY for 90 Days, #90 CAPSULE 3 Refills Prov:DENISSE WILSON [facility], ONC 12/15/17 Pantoprazole Sodium (PANTOPRAZOLE SODIUM) 40 Mg Tablet.dr, 1 TAB PO QDAY for 90 Days, #90 TAB 3 Refills Take 1 tab 30 mins before breakfast. Prov:DENISSE WILSON [facility]-, ONC 12/15/17 Discontinued Scripts Promethazine Hcl (PROMETHAZINE HCL) 25 Mg Tablet, 25 MG PO Q8H Y for NAUSEA/ VOMITING, #12 TAB Prov:CHICO CHÁVEZ [facility] 01/20/18 Levofloxacin 750 Mg Tab (LEVAQUIN 750 MG TAB) 750 Mg Tablet, 750 MG PO DAILY, # 9 TAB Prov:CHICO CHÁVEZ [facility] 01/20/18 Azithromycin (Z-PACK) 250 Mg Tablet, 0 PO QDAY, #6 DOSE-PACK Prov:DENISSE WILSON [facility], ONC 12/15/17 Allergies: Coded Allergies: amphotericin B (Verified Allergy, Severe, ANAPHYLAXIS, 12/17/16) Penicillins (Verified Allergy, Mild, RASH, 12/17/16) A CHILD AGE 4 Hx Smoking: No Smoking Status: Never Smoker Exposure to Second Hand Smoke?: No Caffeine Intake: Coffee Caffeine/Cups Per Day: 8 Hx Alcohol Use: No Hx Substance Use Disorder: No Review of Systems All Systems Reviewed/Normal: Yes, Except as Noted Constitutional: Fever Gastrointestinal: Nausea, Diarrhea Exam Vital Signs Vital Signs Date Time Temp Pulse Resp B/P (MAP) Pulse Ox O2 Delivery O2 Flow Rate FiO2 01/21/18 16:12 128 01/21/18 16:00 99.2 40 119/90 (100) 92 Nasal Cannula 2.0 Neuro: No Gross deficits Eyes: PERRLA Cardiovascular: Regular Rate and Rhythm Respiratory: Clear to Auscultation GI: Abd Soft and Non-Tender Extremities: No Edema Integumentary: No Cyanosis Medical Decision Making Data Points Result Diagram: 01/21/18 1027 01/21/18 1332 Item Value Date Time Lactate 4.7 mmol/L *H 01/21/18 1600 Lactate 4.7 mmol/L *H 01/21/18 1315 Lactate 7.2 mmol/L *H 01/21/18 1027 Item Value Date Time Blood Culture - Final Resulted 01/20/18 2236 Blood Blood Culture - Final Resulted 01/20/18 2114 Blood EKG / Imaging Imaging CT chest/abdomen/pelvis reviewed. Assessment and Plan Problems: (1) Septic shock Assessment & Plan: He did present with fever up to 103. His cultures from last night's emergency room visit are positive for gram positive cocci. His lactate and WBC are elevated. He also developed hypotension requiring Iv fluid resuscitation and a norepinephrine infusion. He has also been started on stress dose hydrocortisone. His lactate is improving. He will be placed on broad spectrum antibiotics with Primaxin and vancomycin. (2) Fever Assessment & Plan: We have yet to identify a source of infection. His CT chest /abdomen/pelvis and laboratory studies do not offer any clues. His only real complaint at this time is a headache and neck stiffness. Anesthesia has been consulted for lumbar puncture. (3) Acute renal failure Assessment & Plan: His creatinine is improving with IV fluids. (4) Lytmu-fubxgw-pscy disease Status: Acute Assessment & Plan: He is on chronic treatment with tacrolimus. A level has been ordered. (5) Acute lymphoblastic leukemia (ALL) in remission Status: Acute Venous Thromboembolism Antithrombotics Is Pt On Any Antithrombotics?: No Exam Sepsis Risk: No Definite Risk CAYLA PANDA DO Jan 21, 2018 17:38
[2018-01-21 18:50] LABS: INR 1.94
--- NOTE | 2018-01-21 19:17 | Miscellaneous Provider Note ---
Miscellaneous Provider Note Note Anesthesia requested a repeat INR prior to lumbar puncture. His INR is increased from earlier today indicating that he may have developed DIC. He will be unable to proceed with lumbar puncture. We are obtaining a head CT scan. We have added moxifloxacin to his antibiotic regime. A repeat lactate level is pending. CAYLA PANDA DO Jan 21, 2018 19:17
--- NOTE | 2018-01-21 20:08 | RADIOLOGY IMAGING REPORT ---
FAC[place]: [facility] [place]IENT NAME: Lucio Lloyd : 1985 MR: [id number] V: [id number] EXAM DATE: ORDERING PHYSICIAN: CAYLA PANDA TECHNOLOGIST: Location: [facility] Patient: Lucio Lloyd : 1985 Visit/Account:[id number] Date of Sevice: 01/21/2018 CT Head without contrast Indication: Headache and fever. Comparison: None available Technique: Axial CT images were obtained through the brain from the skull base to the vertex without administration of IV contrast. Reformatted coronal and sagittal images were also obtained. One of the following dose optimization techniques was utilized in the performance of this exam: autom ated exposure control; adjustment of the mA and/or kV according to the patient's size; or use of an i terative reconstruction technique. Specific details can be referenced in the facility's radiology CT exam operational policy. Findings: No evidence of mass, mass effect, or midline shift. No acute intracranial hemorrhage or acute territorial infarction. No extra-axial fluid collection or hydrocephalus. No abnormal density. Strickland/white matter differentiat ion appears normal. Bony structures show no fractures or lesions. Mild rightward deviation nasal septum. The visualized paranasal sinuses and mastoid air cells are clear. IMPRESSION: 1. No acute intracranial abnormality. Report Dictated By: Lizandro Olivo at 01/21/2018 8:00 PM Report E-Signed By: Lizandro Olivo at 01/21/2018 8:04 PM WSN:[id number]
[2018-01-21] MEDS: MORPHINE 2 MG/ML SYR IVP PRN ×2 (20:33→22:47)
[2018-01-21] MEDS: MOXIFLOX(*) 400MG/250ML PREMX 250 ML IVPB SCH (20:34)
--- NOTE | 2018-01-21 22:40 | Miscellaneous Provider Note ---
Miscellaneous Provider Note Note The head CT was normal. His blood pressure has been improving and he has intermittently been able to wean from vasopressor support. His respiratory rate has also come down. The lactate has also been decreasing and a repeat is currently pending. We will continue with IV fluids and antibiotics overnight. It now seems most likely that he is suffering from meningitis. His blood cultures from yesterday continue to show a gram positive cocci, but we are unable to get a lumbar puncture secondary to his elevated INR. Repeat coagulation studies are ordered for the morning. CAYLA PANDA DO Jan 21, 2018 22:40
[2018-01-21] MEDS: HYDROCORTISONE 100 MG/2 ML IVP SCH (22:43)
[2018-01-21] MEDS: VANCOMYCIN(*) 1 GM VIAL 1 GM, VANCOMYCIN (*) 0.5 GM VIAL 0.25 GM in NS(*) 0.9% 250 ML B... IVPB SCH (22:46)
[2018-01-22] VITALS (93 sets, daily range): BP systolic 80–131; BP diastolic 45–94; Ht 167.6 cm; Wt 68.9 kg
[2018-01-22] MEDS: CILASTA IVPB SCH ×3 (01:34→16:54)
[2018-01-22] MEDS: IMIPENEM IVPB SCH ×3 (01:34→16:54)
[2018-01-22] MEDS: NS(*) 0.9% 1000 ML BAG 1,000 ML IV PRN ×3 (01:34→18:38)
[2018-01-22] MEDS: NS 0.9% IVPB SCH ×3 (01:34→16:54)
[2018-01-22] MEDS: MORPHINE 2 MG/ML SYR IVP PRN ×4 (01:40→10:25)
[2018-01-22 05:17] LABS: INR 2.11
[2018-01-22 05:36] LABS: PLATELET COUNT, AUTOMATED 124 K/uL (150-450)
[2018-01-22] MEDS: HYDROCORTISONE 100 MG/2 ML IVP SCH ×3 (06:08→22:17)
[2018-01-22] MEDS ORDERED: CALCIUM GLUC(*)10% 100MG/ML VL 1,000 MG in NS(*) 0.9% 100 ML BAG 100 ML IVPB ONE ×2 (09:00→13:00)
[2018-01-22] MEDS ORDERED: VANCOMYCIN 1 GM ADDVIAL 1 GM in NS(*) 0.9% 250 ML ADDVAN BAG 250 ML IVPB SCH (11:00)
[2018-01-22] MEDS: VANCOMYCIN(*) 1 GM VIAL 1 GM, VANCOMYCIN (*) 0.5 GM VIAL 0.25 GM in NS(*) 0.9% 250 ML B... IVPB SCH ×2 (11:12→22:20)
--- NOTE | 2018-01-22 12:16 | Hospitalist Progress Note ---
Subjective Progress Notes Subjective Mr. Lloyd is a 32 y.o. male with PMH of ALL on Tacrolimus presented to the emergency room on the night of 01/20/18 for complaints of fever. He refused admission at the time and was released on oral levofloxacin after getting blood CX. His blood cultures were reported as positive for G+C yesterday and he was called back to the emergency room. He had fever up to 103 and he looked septic. He did have headache, nausea/vomiting and diarrhea. He denied any cough.ER evaluation revealed high WBC and Lactate. He developed hypotension requiring Levophed drip after having Central line. He was placed in ICU for further evaluation and management. He received IVF resuscitation and stress dose steroids. He was placed on broad spectrum antibiotics including Vancomycin , Primaxin and moxifloxacin. He was stabilized in ICU. 01/22: Today patient is feeling better with c/o feet pain and mild abdominal distension but no nausea or vomiting. He is afebrile and hemodynamically stable without Levophed drip. His HR is 110 from 130. His lactate became 1.8 and mildly acidotic, INR is still 2.1. He is on Primaxin, Vancomycin and Moxiflox. His Vanco level is 16. He is on stress dose of steroids. Patient Complains of: Neurological: No: Confusion, Weakness, Dizziness Cardiovascular: No: Chest Pain, Palpitations Respiratory: No: Cough, Congestion, Shortness of Breath, Wheezing Gastrointestinal: No Nausea, No Vomiting, No Flatus, No Bowel Movement Genitourinary: No Dysuria, No Hematuria Musculoskeletal: Pain, No: Sprain, Strain, Impaired Mobility Physical Exam Vital Signs Date Time Temp Pulse Resp B/P (MAP) Pulse Ox O2 Delivery O2 Flow Rate FiO2 01/22/18 10:30 108 18 98/69 (79) 93 Nasal Cannula 3.0 01/22/18 10:00 97.6 Intake and Output 01/23/18 07:00 Intake Total 480 ml Balance 480 ml Intake Oral 200 ml IV Total 280 ml General Appearance: Alert, Awake, No Acute Distress, Afebrile Neuro: No Gross deficits Eyes: PERRLA ENT: Normal Cardiovascular: No Edema, No JVD, Other (Tachycardia and weak pulses) Respiratory: No Respiratory Distress, Clear to Auscultation GI: Soft and Non-Tender (mildly distended) Extremities: Soft and Non Tender (tender feet and LE with echhymotic areas), Pulses (weak), Perfused (poor pefusion), Other Psych: Alert & Oriented X3, Appropriate Mood & Affect Result Diagram: 01/22/185 01/22/18454 Monitor Interpretation: Sinus Tachycardia Assessment and Plan Problems: (1) Septic shock Status: Acute Assessment & Plan: He did present with fever up to 103. His cultures from last night's emergency room visit are positive for gram positive cocci. His lactate and WBC are elevated. He also developed hypotension requiring Iv fluid resuscitation and a norepinephrine infusion. He has also been started on stress dose hydrocortisone. His lactate is improving. He will be placed on broad spectrum antibiotics with Primaxin and vancomycin. 01/22: His Levophed is off and his is still in mild DIC. His lactate has improved I will continue his current ICU management. I will reduce his Steroid dose to HC 60mg IV q8h from 100mg. His BCX are positive but ID/S is pending. I will continue his current broad spectrum antibiotics. I will start Ca Gluconate 1g IV x2 dose for his hypocalcemia (2) Fever Status: Acute Assessment & Plan: We have yet to identify a source of infection. His CT chest /abdomen/pelvis and laboratory studies do not offer any clues. His only real complaint at this time is a headache and neck stiffness. Anesthesia has been consulted for lumbar puncture. 01/22: His afebrile and hemodynamically stable without vasoconstrictor. I will continue his antibiotics (3) Acute renal failure Status: Resolved Assessment & Plan: His creatinine is improving with IV fluids. (4) Lmfmd-gzbfly-bxev disease Status: Chronic Assessment & Plan: He is on chronic treatment with tacrolimus. A level has been ordered. (5) Acute lymphoblastic leukemia (ALL) in remission Status: Chronic Assessment & Plan: 01/22: Will check Tacrolimus level Time Spent on Plan of Care: > 30 min Copies to: BREN GRANT MD Exam Sepsis Risk: Severe Sepsis Risk NETO JOSEPH MD Jan 22, 2018 11:12
[2018-01-22] MEDS ORDERED: CAPSAICIN 60 GM TUBE TP SCH (15:05)
[2018-01-22] MEDS ORDERED: CAPSAICIN 60 GM TUBE TP PRN ×2 (15:20)
[2018-01-22] MEDS: IBUPROFEN 200 MG TAB PO PRN (17:35)
[2018-01-22] MEDS ORDERED: PANTOPRAZOLE SOD 40 MG TABEC PO ONE (18:10)
[2018-01-22] MEDS: MOXIFLOX(*) 400MG/250ML PREMX 250 ML IVPB SCH (20:09)
[2018-01-22] MEDS: HYDROmorphone HCL 2 MG/ML SDV IVP PRN (20:13)
[2018-01-22] MEDS ORDERED: HYDROmorphone HCL 2 MG/ML SDV ONE (20:16)
[2018-01-23] VITALS (68 sets, daily range): BP systolic 89–149; BP diastolic 57–103
[2018-01-23] MEDS: CILASTA IVPB SCH ×3 (00:44→16:50)
[2018-01-23] MEDS: IMIPENEM IVPB SCH ×3 (00:44→16:50)
[2018-01-23] MEDS: HYDROmorphone HCL 2 MG/ML SDV IVP PRN ×2 (00:44→05:08)
[2018-01-23] MEDS: NS 0.9% IVPB SCH ×3 (00:44→16:50)
[2018-01-23] MEDS: NS(*) 0.9% 1000 ML BAG 1,000 ML IV PRN ×2 (04:28→16:05)
[2018-01-23 05:18] LABS: PLATELET COUNT, AUTOMATED 96 K/uL (150-450)
[2018-01-23] MEDS: HYDROCORTISONE 100 MG/2 ML IVP SCH ×3 (06:14→22:23)
[2018-01-23] MEDS ORDERED: MAGNESIUM SUL* 2 GM/50 ML IVPB 50 ML IVPB ONE (07:45)
[2018-01-23] MEDS ORDERED: PANTOPRAZOLE SOD 20 MG TABEC PO SCH (09:00)
[2018-01-23] MEDS: TACROLIMUS 5 MG CAP PO SCH (09:28)
--- NOTE | 2018-01-23 09:48 | RADIOLOGY IMAGING REPORT ---
FACILITY: [facility] PATIENT NAME: Lucio Lloyd : 1985 MR: [id number] V: [id number] EXAM DATE: ORDERING PHYSICIAN: CHERYL POWERS TECHNOLOGIST: Location: [facility] Patient: Lucio Lloyd : 1985 Visit/Account:[id number] Date of Sevice: 01/23/2018 Exam type: CHEST SINGLE AP History: Pneumonia Comparison: 01/21/2018, CT scan 01/21/2018. Findings: There is worsening aeration in both lungs when compared to prior examination. Moderate right-sided pl eural effusion has enlarged with increased perihilar interstitial prominence bilaterally. Small left- sided effusion is also noted. No pneumothorax. Heart size appears slightly prominent for age. Right-sided central venous catheter has its tip in the SVC. IMPRESSION: 1. Moderate right-sided pleural effusion new from prior exam. 2. Perihilar interstitial prominence worsened from prior examination and potentially representing pne umonia versus fluid overload. Report Dictated By: Lizandro Melvin MD at 01/23/2018 9:42 AM Report E-Signed By: Lizandro Melvin MD at 01/23/2018 9:45 AM WSN:[id number]
--- NOTE | 2018-01-23 10:07 | Hospitalist Progress Note ---
Subjective Progress Notes Subjective Mr. Lloyd is a 32 y.o. male with PMH of ALL on Tacrolimus presented to the emergency room on the night of 01/20/18 for complaints of fever. He refused admission at the time and was released on oral levofloxacin after getting blood CX. His blood cultures were reported as positive for G+C yesterday and he was called back to the emergency room. He had fever up to 103 and he looked septic. He did have headache, nausea/vomiting and diarrhea. He denied any cough.ER evaluation revealed high WBC and Lactate. He developed hypotension requiring Levophed drip after having Central line. He was placed in ICU for further evaluation and management. He received IVF resuscitation and stress dose steroids. He was placed on broad spectrum antibiotics including Vancomycin , Primaxin and moxifloxacin. He was stabilized in ICU. 01/22: Today patient is feeling better with c/o feet pain and mild abdominal distension but no nausea or vomiting. He is afebrile and hemodynamically stable without Levophed drip. His HR is 110 from 130. His lactate became 1.8 and mildly acidotic, INR is still 2.1. He is on Primaxin, Vancomycin and Moxiflox. His Vanco level is 16. He is on stress dose of steroids. 01/23: He is afebrile, hemodynamically stable without pressors but c/o feet pain and cold feet with LE reddish rash. His Tacrolimus was on hold and level is still pending. His WBC increased to 41K. His mag level is 1.6. His weight is also increased to 73Kg from 69Kg due to IVF Patient Complains of: Neurological: Weakness, No: Confusion, Dizziness Cardiovascular: No: Chest Pain, Palpitations Respiratory: No: Cough, Congestion, Shortness of Breath Gastrointestinal: No Nausea, No Vomiting Genitourinary: No Dysuria, No Hematuria Musculoskeletal: Pain, No: Sprain, Strain Physical Exam Vital Signs Date Time Temp Pulse Resp B/P (MAP) Pulse Ox O2 Delivery O2 Flow Rate FiO2 01/23/18 08:15 94 Nasal Cannula 4.0 01/23/18 08:00 98 01/23/18 07:30 11 110/65 (80) 01/23/18 05:00 97.0 Intake and Output 01/24/18 07:00 Output Total 75 ml Balance -75 ml Output Urine Total 75 ml General Appearance: Alert, Awake, No Acute Distress, Afebrile Neuro: No Gross deficits Eyes: PERRLA ENT: Normal Cardiovascular: No Edema, No JVD, Other (sinus tachycardia) Respiratory: No Respiratory Distress GI: Soft and Non-Tender Extremities: Soft and Non Tender, Warm, Pulses (He has good popliteal pulses but weak DP/AT with ecchymotic ankle areas) Psych: Alert & Oriented X3 Result Diagram: 01/23/18 0505 01/23/18 0505 Monitor Interpretation: Sinus Tachycardia Assessment and Plan Problems: (1) Septic shock Status: Acute Assessment & Plan: He did present with fever up to 103. His cultures from last night's emergency room visit are positive for gram positive cocci. His lactate and WBC are elevated. He also developed hypotension requiring Iv fluid resuscitation and a norepinephrine infusion. He has also been started on stress dose hydrocortisone. His lactate is improving. He will be placed on broad spectrum antibiotics with Primaxin and vancomycin. 01/22: His Levophed is off and his is still in mild DIC. His lactate has improved I will continue his current ICU management. I will reduce his Steroid dose to HC 60mg IV q8h from 100mg. His BCX are positive but ID/S is pending. I will continue his current broad spectrum antibiotics. I will start Ca Gluconate 1g IV x2 dose for his hypocalcemia 01/23: He is still in mild DIC with ecchymotic areas of his LE and tender LE. His underlying cause of DIC is his sepsis and is being treated with broad spectrum antibiotics. His BCX are positive for GPC but ID/S is pending. His UCX and Sputum CX are negative. I will continue his current antibiotics, Vancomycin, Primaxin and Moxifloxacin I will also continue his Steroids and I will start his Tacrolimus 5mg po q daily because his WBC went high 41K I will get CXR today and possible Lasix if his BP tolerates (2) Fever Status: Acute Assessment & Plan: We have yet to identify a source of infection. His CT chest /abdomen/pelvis and laboratory studies do not offer any clues. His only real complaint at this time is a headache and neck stiffness. Anesthesia has been consulted for lumbar puncture. 01/22: His afebrile and hemodynamically stable without vasoconstrictor. I will continue his antibiotics 01/23: He is afebrile and I will continue his antibiotics (3) Acute renal failure Status: Resolved Assessment & Plan: His creatinine is improving with IV fluids. (4) Puwle-qkdeqx-zqtd disease Status: Chronic Assessment & Plan: He is on chronic treatment with tacrolimus. A level has been ordered. (5) Acute lymphoblastic leukemia (ALL) in remission Status: Chronic Assessment & Plan: 01/22: Will check Tacrolimus level Condition Critical Critical Time Spent: 30-74 Minutes Copies to: TOBI RODRÍGUEZ MD Exam Sepsis Risk: Severe Sepsis Risk NETO JOSEPH MD Jan 23, 2018 10:07
[2018-01-23] MEDS: VANCOMYCIN(*) 1 GM VIAL 1 GM, VANCOMYCIN (*) 0.5 GM VIAL 0.25 GM in NS(*) 0.9% 250 ML B... IVPB SCH ×2 (11:12→22:22)
--- NOTE | 2018-01-23 11:56 | Medical Nutrition Therapy ---
Nutrition Anthropometrics Height (Inches): 66.00 Height (Calculated Centimeters: 167.632084 Weight (Pounds): 161 Weight (Calculated Kilograms): 73.170 BMI Calculated: 24.53 Roly Nutrition Score: Probably Inadequate Roly Nutrition Risk Score: 16 Dietary Referral Nutrition Risk Factors: Nutrition Risk Comment: Physical Findings Physical Appearance: BMI 26-wt up due to IVF Skin Appearance Skin Appearance: Edema Edema Location Modifier: Edema Location: Type of Edema: Degree of Edema: Gastrointestinal Symptoms GI Symtoms: Tube Present: Bowel Sounds: Recent Bowel Pattern: Stool Characteristics: Nutritional Diagnosis Nutritional Risk Acuity 1: Acute/ES Renal Nutritional Risk Acuity 2: Sepsis Past Medical History: leukemia, 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 Adjusted Energy Requirement Re: 1950 ([phone] based on wt at admission (62 kg )) Protein Requirement: 62 Fluid Requirement: 2170 (35 ml/kg) Diet Type: Diet as Tolerated BRAD/REG Nutrition Intervention: Cont diet as ordered, Encourage intake Additional Diet Restrictions: OFFER NUTR SUPPLMENTS IF INTAKE < 50% Nutrition Monitoring & Eval RD Patient Assessment Time: [address] Assessment Type: RD Assessment Patient Nutrition Acuity: 1-High Follow Up Date: Jan 26, 2018 Nutritional Comment: 01/22 Pt admitted with septic shock and ARF. Pt on regular diet and ate a small amount of first meal in facility. Pt reporteing N/V which may be affecting intake. Alb 3.5, WBC 25.7, Hct 136.8, Hbg 12.7. Will cont to monitor and encourage intake. 01/23 Intake very low likely due to N/V. Will offer nutr suppl if intake is less than 50%. Wt is up 24# since admit due to IVF. Notable labs include low H/H, BUN 29, Mg 1.6, elevated liver enz, tot pro 5.3 and alb 2.6. Will cont to monitor and encourage intake. MARY TAMEZ Jan 23, 2018 11:56
[2018-01-23] MEDS ORDERED: FUROSEMIDE 40 MG/4 ML VIAL IVP ONE ×2 (14:20→20:00)
[2018-01-23] MEDS: MORPHINE 2 MG/ML SYR IVP PRN (16:03)
[2018-01-23] MEDS: MOXIFLOX(*) 400MG/250ML PREMX 250 ML IVPB SCH (20:29)
[2018-01-23] MEDS ORDERED: FUROSEMIDE 20 MG/2 ML VIAL IVP ONE (22:40)
[2018-01-23] MEDS: ALBUTEROL 2.5 MG/3 ML NEB NEB PRN (22:51)
[2018-01-24] VITALS (83 sets, daily range): BP systolic 70–176; BP diastolic 40–119
[2018-01-24] MEDS: NS 0.9% IVPB SCH ×3 (01:22→16:45)
[2018-01-24] MEDS: IMIPENEM IVPB SCH ×3 (01:22→16:45)
[2018-01-24] MEDS: CILASTA IVPB SCH ×3 (01:22→16:45)
[2018-01-24] MEDS: MORPHINE 2 MG/ML SYR IVP PRN (01:25)
[2018-01-24] MEDS: ALBUTEROL 2.5 MG/3 ML NEB NEB PRN (04:11)
[2018-01-24] MEDS: HYDROCORTISONE 100 MG/2 ML IVP SCH (05:11)
[2018-01-24 05:27] LABS: PLATELET COUNT, AUTOMATED 83 K/uL (150-450)
[2018-01-24 05:47] LABS: INR 1.21
[2018-01-24] MEDS ORDERED: KCL (*) 20 MEQ/100 ML PREMIX 100 ML IV ONE (06:05)
[2018-01-24] MEDS ORDERED: LIDOCAINE MPF 1% 5 ML VIAL ONE (07:38)
[2018-01-24] MEDS ORDERED: PROPOFOL EMUL(*) 10MG/ML 20 ML 20 ML ONE (07:38)
[2018-01-24] MEDS ORDERED: SUCCINYLCHOL CHL 200MG/10ML VL ONE (07:38)
[2018-01-24] MEDS: PROPOFOL(*)1000 MG/100 ML VIAL 100 ML IV PRN ×5 (07:44→23:32)
--- NOTE | 2018-01-24 07:56 | Hospitalist Progress Note ---
Subjective Progress Notes Subjective He is reporting SOB. It has been worsening since yesterday. Physical Exam Vital Signs Date Time Temp Pulse Resp B/P (MAP) Pulse Ox O2 Delivery O2 Flow Rate FiO2 01/24/18 07:03 90.0 01/24/18 07:03 90 Bi-PAP 01/24/18 06:30 120 27 146/106 (119) 01/24/18 05:00 97.7 01/24/18 04:27 85.0 General Appearance: Alert, Awake, Other (Moderate work of breathing) Neuro: No Gross deficits Cardiovascular: Other (tachy, regular) Respiratory: Other (diffuse insp crackles anteriorly bilaterally) Result Diagram: 01/24/18 0515 01/24/18 0515 Monitor Interpretation: Sinus Tachycardia Assessment and Plan Problems: (1) ARDS (adult respiratory distress syndrome) Status: Acute Assessment & Plan: Over the last 24-36 hours he has increased work of breathing and O2 requirement. CXR shows diffuse bilateral infiltrates c/w ARDS. His PCO2 is up slightly. His requiring 90% FiO2 by BIPAP. He has not improved with aggressive diuresis. We discussed the possibility of worsening before improvement and the need for intubation now before he becomes unstable. He expressed understanding and want to be intubated. I called his and updated her. Dr. Ball is coming in to intubate him this morning. Continue diuresis. (2) Septic shock Status: Acute Assessment & Plan: He did present with fever up to 103. His cultures from last night's emergency room visit are positive for gram positive cocci. His lactate and WBC are elevated. He also developed hypotension requiring Iv fluid resuscitation and a norepinephrine infusion. He has also been started on stress dose hydrocortisone. His lactate is improving. He will be placed on broad spectrum antibiotics with Primaxin and vancomycin. 01/22: His Levophed is off and his is still in mild DIC. His lactate has improved I will continue his current ICU management. I will reduce his Steroid dose to HC 60mg IV q8h from 100mg. His BCX are positive but ID/S is pending. I will continue his current broad spectrum antibiotics. I will start Ca Gluconate 1g IV x2 dose for his hypocalcemia 01/23: He is still in mild DIC with ecchymotic areas of his LE and tender LE. His underlying cause of DIC is his sepsis and is being treated with broad spectrum antibiotics. His BCX are positive for GPC but ID/S is pending. His UCX and Sputum CX are negative. I will continue his current antibiotics, Vancomycin, Primaxin and Moxifloxacin I will also continue his Steroids and I will start his Tacrolimus 5mg po q daily because his WBC went high 41K I will get CXR today and possible Lasix if his BP tolerates 01/24: BP actually high. Will decrease steroids. Continue antibiotics. (3) Fever Status: Acute Assessment & Plan: We have yet to identify a source of infection. His CT chest /abdomen/pelvis and laboratory studies do not offer any clues. His only real complaint at this time is a headache and neck stiffness. Anesthesia has been consulted for lumbar puncture. 01/22: His afebrile and hemodynamically stable without vasoconstrictor. I will continue his antibiotics 01/23: He is afebrile and I will continue his antibiotics 01/24: Concerned about a pneumonia. See above. (4) Acute renal failure Status: Resolved Assessment & Plan: His creatinine is improving with IV fluids. (5) Vxelg-qgxrku-puan disease Status: Chronic Assessment & Plan: He is on chronic treatment with tacrolimus. A level has been ordered. 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
[2018-01-24] MEDS ORDERED: FUROSEMIDE 40 MG/4 ML VIAL IVP ONE ×2 (08:00→15:15)
[2018-01-24] MEDS: NS(*) 0.9% 1000 ML BAG 1,000 ML IV PRN (08:38)
[2018-01-24] MEDS: ORAL SUCTION/CHLORHX/SWAB KIT MT SCH ×2 (08:53→20:14)
[2018-01-24] MEDS ORDERED: INFLUENZA VIRUS VAC 0.5 ML SYR IM ONLY ONE (09:00)
[2018-01-24] MEDS: TACROLIMUS 5 MG CAP PO SCH (09:00)
[2018-01-24] MEDS: PANTOPRAZOLE SOD 40 MG IV VIAL IVP SCH (09:10)
[2018-01-24] MEDS: MIDAZOLAM 50 MG/10 ML 1ML VIAL 100 MG in NS(*) 0.9% 100 ML BAG 80 ML IV PRN (10:25)
[2018-01-24] MEDS: NS(*) 0.9% 500 ML BAG 500 ML IV PRN ×2 (10:59→13:25)
[2018-01-24] MEDS: VANCOMYCIN(*) 1 GM VIAL 1 GM, VANCOMYCIN (*) 0.5 GM VIAL 0.25 GM in NS(*) 0.9% 250 ML B... IVPB SCH ×2 (11:08→22:50)
[2018-01-24] MEDS ORDERED: HYDROCORTISONE 100 MG/2 ML IVP SCH (14:00)
[2018-01-24] MEDS: KCL (*) 20 MEQ/100 ML PREMIX 100 ML IV SCH ×2 (15:42→17:56)
--- NOTE | 2018-01-24 16:10 | Miscellaneous Provider Note ---
Miscellaneous Provider Note Note The patient was intubated without complication. He had an OG placed also. He did desaturate quickly with the removal of the BIPAP and during the placement of the ET tube, but came up >90%. He is on ARDS volume settings. His initial blood gas was c/w respiratory acidosis, but has improved. He has good plateau pressures. Titrating down the FiO2. Will give another dose of Lasix and 40 mEq of potassium. Will stop steroids. Overall, he is stable on the ventilator. Item Value Date Time Arterial Blood pH 7.23 L 01/24/18 0915 Arterial Blood Partial Pressure CO2 52 mmHg *H 01/24/18 0915 Arterial Blood Partial Pressure O2 68 mmHg 01/24/18 0915 Arterial Blood HCO3 22 mmol/L 01/24/18 0915 Arterial Blood Oxygen Saturation 89 % L 01/24/18 0915 Arterial Blood pH 7.32 L 01/24/18 1125 Arterial Blood Partial Pressure CO2 43 mmHg H 01/24/18 1125 Arterial Blood Partial Pressure O2 75 mmHg 01/24/18 1125 Arterial Blood HCO3 23 mmol/L 01/24/18 1125 Arterial Blood Oxygen Saturation 94 % 01/24/18 1125 Oxygen Liters/Minute 100% 01/24/18 0915 Oxygen Liters/Minute 100% vent 01/24/18 1125 SABINE GONCALVES MD Jan 24, 2018 16:10
--- NOTE | 2018-01-24 16:46 | RADIOLOGY IMAGING REPORT ---
FACILITY: [facility] PATIENT NAME: Lucio Lloyd : 1985 MR: [id number] V: [id number] EXAM DATE: ORDERING PHYSICIAN: SABINE GONCALVES TECHNOLOGIST: Location: [facility] - [place] Patient: Lucio Lloyd : 1985 Visit/Account:[id number] Date of Sevice: 01/24/2018 CHEST SINGLE AP HISTORY: Intubated COMPARISON: 01/24/2018 FINDINGS: Cardiomediastinal contours: Normal Lungs and pleura: Increasing bilateral perihilar airspace disease distention of the pulmonary vascula rity. Stable mild blunting of the right costophrenic angle. No pneumothorax. Bones/soft tissues: Stable right internal jugular central line with its tip at the mid SVC. Nasogastr ic tube coursing into the stomach. Endotracheal tube tip 1.8 cm above the eden. Other findings: None significant IMPRESSION: 1. Endotracheal tube tip 1.8 cm above the eden and should be retracted 1-2 cm. 2. Nasogastric tube in good position. 3. Worsening bilateral perihilar airspace disease with distention the pulmonary vascularity. Report Dictated By: Fabio Velázquez MD at 01/24/2018 8:31 AM Report E-Signed By: Fabio Velázquez MD at 01/24/2018 8:34 AM WSN:[id number]
--- NOTE | 2018-01-24 16:46 | RADIOLOGY IMAGING REPORT ---
FACILITY: [facility] - [place] PATIENT NAME: Lucio Lloyd : 1985 MR: [id number] V: [id number] EXAM DATE: ORDERING PHYSICIAN: NETO JOSEPH TECHNOLOGIST: Location: [facility] Patient: Lucio Lloyd : 1985 Visit/Account:[id number] Date of Sevice: 01/24/2018 CHEST SINGLE AP COMPARISONS: Single view chest dated January 23, 2018 ADDITIONAL PERTINENT HISTORY: Pneumonia FINDINGS: Life-support: Right internal jugular venous catheter with its tip in the mid SVC. Cardiomediastinal silhouette: Negative Pulmonary vasculature: Negative. Lung collins: Interval increase in regions of infiltrate involving the perihilar regions bilaterally as well as the right lower lobe. Pleural spaces: Negative. Osseous structures: Negative. Surrounding soft tissues: Negative. IMPRESSION: 1. Interval increase in bilateral infiltrates. Report Dictated By: Jelani Allen MD at 01/24/2018 6:09 AM Report E-Signed By: Jelani Allen MD at 01/24/2018 6:11 AM WSN:[id number]
[2018-01-25] VITALS (94 sets, daily range): BP systolic 91–162; BP diastolic 56–99
[2018-01-25] MEDS: CILASTA IVPB SCH (00:25)
[2018-01-25] MEDS: NS 0.9% IVPB SCH (00:25)
[2018-01-25] MEDS: IMIPENEM IVPB SCH (00:25)
[2018-01-25] MEDS: PROPOFOL(*)1000 MG/100 ML VIAL 100 ML IV PRN ×5 (03:00→22:55)
[2018-01-25 05:29] LABS: PLATELET COUNT, AUTOMATED 65 K/uL (150-450)
--- NOTE | 2018-01-25 06:20 | RADIOLOGY IMAGING REPORT ---
FACILITY: [facility] - [place] PATIENT NAME: Lucio Lloyd : 1985 MR: [id number] V: [id number] EXAM DATE: ORDERING PHYSICIAN: SABINE GONCALVES TECHNOLOGIST: Location: [facility] - [place] Patient: Lucio Lloyd : 1985 Visit/Account:[id number] Date of Sevice: 01/25/2018 CHEST SINGLE AP COMPARISONS: Single view chest dated January 24, 2018 ADDITIONAL PERTINENT HISTORY: ARDS FINDINGS: Life-support: Right internal jugular venous catheter, endotracheal tube and NG tube in stable positio n. Cardiomediastinal silhouette: Negative. Pulmonary vasculature: Negative. Lung collins: Improved but persistent bilateral infiltrates. No new regions of infiltrate. Pleural spaces: Negative. Osseous structures: Negative. Surrounding soft tissues: Negative. IMPRESSION: 1. Improved but persistent bilateral infiltrates. 2. Stable life support. Report Dictated By: Jelani Allen MD at 01/25/2018 6:13 AM Report E-Signed By: Jelani Allen MD at 01/25/2018 6:15 AM WSN:[id number]
[2018-01-25] MEDS: KCL (*) 20 MEQ/100 ML PREMIX 100 ML IV SCH ×2 (07:14→09:35)
[2018-01-25] MEDS: ORAL SUCTION/CHLORHX/SWAB KIT MT SCH ×2 (08:23→21:11)
--- NOTE | 2018-01-25 08:42 | Hospitalist Progress Note ---
Subjective Progress Notes Subjective This patient was admitted for sepsis. He required intubation yesterday. Patient Complains of: Cardiovascular: No: Chest Pain Respiratory: Shortness of Breath Physical Exam Vital Signs Date Time Temp Pulse Resp B/P (MAP) Pulse Ox O2 Delivery O2 Flow Rate FiO2 01/25/18 07:15 40.0 01/25/18 06:57 67 31 01/25/18 06:57 98 Mechanical Ventilator 01/25/18 06:15 105/80 (88) 01/25/18 06:00 98.6 01/24/18 08:10 Neuro: Other (Sedated to RASS -2) Eyes: PERRLA Cardiovascular: Regular Rate and Rhythm Respiratory: Other (Bilateral breath sounds present.) GI: Soft and Non-Tender Extremities: No Edema Integumentary: Cyanosis Result Diagram: 01/25/18 0500 01/25/18 0500 Item Value Date Time Prothrombin Time 15.5 seconds H 01/24/18 0515 Prothromb Time International Ratio 1.21 01/24/18 0515 Fibrinogen 538 mg/dL H 01/24/18 0515 D-Dimer Quantitative (PE/DVT) 13.58 ug/ml H 01/24/18 0515 Item Value Date Time Arterial Blood pH 7.30 L 01/21/18 1315 Arterial Blood Partial Pressure CO2 < 25 mmHg L 01/21/18 1315 Arterial Blood Partial Pressure O2 61 mmHg 01/21/18 1315 Arterial Blood HCO3 12 mmol/L *L 01/21/18 1315 Arterial Blood Oxygen Saturation 90 % L 01/21/18 1315 Arterial Blood pH 7.48 H 01/25/18 0500 Arterial Blood Partial Pressure CO2 40 mmHg H 01/25/18 0500 Arterial Blood Partial Pressure O2 75 mmHg 01/25/18 0500 Arterial Blood HCO3 30 mmol/L H 01/25/18 0500 Item Value Date Time Blood Culture - Final Complete 01/21/18 1027 Blood Peripheral Draw Monitor Interpretation: Sinus Tachycardia Assessment and Plan Problems: (1) Meningitis due to Streptococcus pneumoniae Assessment & Plan: On admission he complained of headache and neck stiffness. We were unable to obtain a lumbar puncture because of his elevated INR. We elected to treat him initially with Primaxin, vancomycin, and moxifloxacin. His cultures from this admission and his previous ER visit have shown pansensitive Streptococcus pneumonia. We have narrowed his antibiotics to moxifloxacin and vancomycin. (2) ARDS (adult respiratory distress syndrome) Status: Acute Assessment & Plan: He did develop increased work of breathing and O2 requirement. His chest x-ray has shown diffuse bilateral infiltrates consistent with ARDS. He has been intubated and placed on mechanical ventilation. (3) Acute respiratory failure Assessment & Plan: He is on mechanical ventilation with SIMV. He is receiving propofol and versed for sedation. We will try to wean his requirement through the day. We will need to consider tube feedings if he does not come off the ventilator in the next 24hrs. (4) DIC (disseminated intravascular coagulation) Assessment & Plan: It does appear that he has developed DIC, but is not having any bleeding or clotting at this time. We have elected not to place him prophylactic Lovenox, but he does have SCD's in place. (5) Septic shock Status: Acute Assessment & Plan: He did present with fever of 103. His cultures were positive for gram positive cocci. His lactate and WBC are elevated. He did require vasopressor support with norepinephrine and fluid resuscitation. He was also started on stress dose hydrocortisone. He has now weaned off vasopressor support and steroids have been discontinued. (6) Acute renal failure Status: Resolved Assessment & Plan: Resolved with IV fluids. (7) Iecfg-jsfpsh-gdtz disease Status: Chronic Assessment & Plan: He is on chronic treatment with tacrolimus. A level was in therapeutic range. Pharmacy is working to secure a dose that will be compatible with his NPO status. 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 Exam Sepsis Risk: Severe Sepsis Risk CAYLA PANDA DO Jan 25, 2018 08:42
[2018-01-25] MEDS: PANTOPRAZOLE SOD 40 MG IV VIAL IVP SCH (09:38)
[2018-01-25] MEDS: TACROLIMUS 0.5 MG CAPSULE FT SCH ×2 (09:42→21:11)
--- NOTE | 2018-01-25 09:43 | Antimicrobial Stewardship ---
Antimicrobial Time Out Antimicrobial Stewardship MD Service: Hospitalist Indications: Other (Positive Blood Cultures, Meningitis) Antimicrobial Used Vancomycin, Primaxin, Moxifloxacin, Cefepime Start Date: Jan 21, 2018 Culture Results: Yes (01/20/18- Blood Cx x 2 - S. pneumoniae, ferris sens: 01/21/18 : Blood Cx x 1 - S. 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 He presented to the ED on 01/20/18 and had postitive blood cultures and was called back to the ED. Temp 99.8 to 100.4 (reported 103 at home)--afebrile BP 70-80s/50-60s -->90-100s/60-80s --- was on levophed, now off WBC 16.6-->47.2-->36.9 (01/25/18- 22%bandemia) Plts 218 -->83 -->65 Lactate 7.2-->1.0 K= 2.4 AST/ALT 54/93 (decreased) Vanco Troughs 01/22 16.27 01/23 17.68 01/24 19.64 Tacrolimus = 2.[address]- chest/abd/pelvis- wnl chest xray- bilateral infiltrates CT - Head - wnl 1. Infection- Pneumonia/Meningitis--Pt with complaints of a stiff neck, positive blood cultures, unable to obtain an LP. Empiric treatment of meningitis. Blood cultures growing S. pneumoniae, PCN REHANA</= 0.03, Ceftriaxone REHANA </= 0.25. Pt with PCN allergy. Treatment could be Ceftriaxone as a single agent (PCN allergy, pt tolerated one dose of cefepime, could try) or Moxifloxacin +/- Vancomycin. Moxifloxacin single agent, not recommended secondary to low level of evidence (mostly case reports), would add Vancomycin to Moxifloxacin. Currently on Vancomycin 1.25g IV q12h and Moxifloxacin 400mg IV daily. Treatment duration for a minimum of 10-14 days. Monitor trough levels. Today is day of therapy with Vancomycin, day 5 of imipenem and Moxifloxacin (no dose on 01/24/18). Chaya Ding, PharmD, OP CHAYA DING Jan 25, 2018 09:43
[2018-01-25] MEDS: MOXIFLOX(*) 400MG/250ML PREMX 250 ML IVPB SCH (10:04)
[2018-01-25] MEDS: VANCOMYCIN(*) 1 GM VIAL 1 GM, VANCOMYCIN (*) 0.5 GM VIAL 0.25 GM in NS(*) 0.9% 250 ML B... IVPB SCH ×2 (11:39→22:55)
[2018-01-25] MEDS: NS(*) 0.9% 500 ML BAG 500 ML IV PRN (22:55)
[2018-01-26] VITALS (66 sets, daily range): BP systolic 110–149; BP diastolic 68–105
[2018-01-26] MEDS: PROPOFOL(*)1000 MG/100 ML VIAL 100 ML IV PRN ×5 (02:36→19:17)
[2018-01-26] MEDS: MIDAZOLAM 50 MG/10 ML 1ML VIAL 100 MG in NS(*) 0.9% 100 ML BAG 80 ML IV PRN (02:36)
[2018-01-26] MEDS: NS(*) 0.9% 500 ML BAG 500 ML IV PRN ×2 (05:26→11:02)
[2018-01-26 05:31] LABS: PLATELET COUNT, AUTOMATED 80 K/uL (150-450)
--- NOTE | 2018-01-26 06:24 | RADIOLOGY IMAGING REPORT ---
FACILITY: [facility] - [place] PATIENT NAME: Lucio Lloyd : 1985 MR: [id number] V: [id number] EXAM DATE: ORDERING PHYSICIAN: CAYLA PANDA TECHNOLOGIST: Location: [facility] - [place] Patient: Lucio Lloyd : 1985 Visit/Account:[id number] Date of Sevice: 01/26/2018 CHEST SINGLE AP COMPARISONS: Single view chest dated January 26, 2018 ADDITIONAL PERTINENT HISTORY: Patient intubated FINDINGS: Life-support: NG tube, endotracheal tube and right internal jugular venous catheters in stable positi on. Cardiomediastinal silhouette: Negative. Pulmonary vasculature: Negative. Lung collins: Patchy areas of infiltrate in both lung bases. This is slightly increased in prominence when compared to previous exam. Pleural spaces: Negative. Osseous structures: Negative. Surrounding soft tissues: Negative. IMPRESSION: 1. Interval increase in bibasilar regions of infiltrate. 2. Stable life support. Report Dictated By: Jelani Allen MD at 01/26/2018 6:19 AM Report E-Signed By: Jelani Allen MD at 01/26/2018 6:20 AM WSN:[id number]
[2018-01-26] MEDS: KCL (*) 20 MEQ/100 ML PREMIX 100 ML IV SCH ×4 (06:37→14:44)
--- NOTE | 2018-01-26 08:33 | Hospitalist Progress Note ---
Subjective Progress Notes Subjective He is sedated on [facility] ventilator. No fever. Physical Exam Vital Signs Date Time Temp Pulse Resp B/P (MAP) Pulse Ox O2 Delivery O2 Flow Rate FiO2 01/26/18 08:07 92 Mechanical Ventilator 40.0 01/26/18 07:54 65 01/26/18 07:45 98.4 35 124/85 (98) 01/24/18 08:10 Intake and Output 01/27/18 07:00 Output Total 80 ml Balance -80 ml Output Urine Total 80 ml General Appearance: Other (sedated on ventilator) ENT: Other (ET/OG tubes in place) Neck: Other (Right IJ site looks good) Cardiovascular: Regular Rate and Rhythm (no murmur) Respiratory: Other (scattered upper airway/ventilator sounds/few rales bilaterally) GI: Other (soft/rare bowel sounds) Extremities: Warm, Perfused Integumentary: Other (some purplish discoloration of ana tip of 2nd digit left foot with some macular reddish discoloration of distal legs/feet bilaterally) Result Diagram: 01/26/18 0500 01/26/18 0500 Monitor Interpretation: Normal Sinus Rhythm Assessment and Plan Problems: (1) Meningitis due to Streptococcus pneumoniae Assessment & Plan: On admission he complained of headache and neck stiffness. We were unable to obtain a lumbar puncture because of his elevated INR. We elected to treat him initially with Primaxin, vancomycin, and moxifloxacin (due to penicillin allergy). His cultures from this admission and his previous ER visit have shown pansensitive Streptococcus pneumoniae. We have narrowed his antibiotics to moxifloxacin and vancomycin. Plan at this time would be for 14 days of IV vancomycin and Avelox. (2) ARDS (adult respiratory distress syndrome) Status: Acute Assessment & Plan: He did develop increased work of breathing and O2 requirement. His chest x-ray has shown diffuse bilateral infiltrates consistent with ARDS. He has been intubated and placed on mechanical ventilation. His CXR has shown some minor improvements. His amount of ventilatory support and O2 requirement has improved as well. No changes at this time. (3) Acute respiratory failure Assessment & Plan: He is on mechanical ventilation. He is receiving propofol and versed for sedation. We will start tube feedings today. I suspect he will need at least a few more days of ventilatory support. (4) DIC (disseminated intravascular coagulation) Assessment & Plan: It does appear that he developed DIC, but is not having any bleeding or clotting at this time. We have elected not to place him prophylactic Lovenox, but he does have SCDs in place. (5) Septic shock Status: Acute Assessment & Plan: He did present with fever of 103F. His cultures are positive for S. pneumoniae. His lactate and WBC were elevated. He did require vasopressor support with norepinephrine and fluid resuscitation. He was also started on stress dose hydrocortisone. He has now weaned off vasopressor support, but steroids have been continued. (6) Acute renal failure Status: Resolved Assessment & Plan: Resolved with IV fluids. (7) Vrunk-vdmgqr-raed disease Status: Chronic Assessment & Plan: He is on chronic treatment with tacrolimus. A level was in therapeutic range. 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 Watch labs. Exam Sepsis Risk: Severe Sepsis Risk TIFFANY JACINTO MD Jan 26, 2018 08:33
[2018-01-26] MEDS: TACROLIMUS 0.5 MG CAPSULE FT SCH ×2 (09:26→21:34)
[2018-01-26] MEDS: PANTOPRAZOLE SOD 40 MG IV VIAL IVP SCH (09:28)
[2018-01-26] MEDS: MOXIFLOX(*) 400MG/250ML PREMX 250 ML IVPB SCH (09:28)
[2018-01-26] MEDS: HYDROCORTISONE 100 MG/2 ML IVP SCH ×2 (09:28→21:34)
[2018-01-26] MEDS: ORAL SUCTION/CHLORHX/SWAB KIT MT SCH ×2 (09:29→21:35)
--- NOTE | 2018-01-26 11:20 | Medical Nutrition Therapy ---
Nutrition Anthropometrics Height (Inches): 66.00 Height (Calculated Centimeters: 167.066834 Weight (Pounds): 146 Weight (Calculated Kilograms): 66.310 BMI Calculated: 24.53 Roly Nutrition Score: Adequate Roly Nutrition Risk Score: 16 Dietary Referral Nutrition Risk Factors: Nutrition Risk Comment: Nutritional Diagnosis Nutritional Risk Acuity 1: Tube Feed Unstable, Pulm Fail Vent Nutritional Risk Acuity 2: Sepsis Past Medical History: leukemia, 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 Adjusted Energy Requirement Re: 2245 ([facility] RMR (1855) X 1.1 AF X1.1 SF) Protein Requirement: 71 (1.1gm/kg) Fluid Requirement: 2170 (35 ml/kg) Diet Type: NPO (Nothing by Mouth), Tube Feeding (TF) Nutrition Intervention: Nutrition support, Incr diet as tolerated Nutritional Support Current Enteral / Parental: Tube Feeding Tube Feeding Formulas: Jevity 1cal/ml-Standard Current Tube Feeding Formula C: 20ml/hr increase 5 q 6 hr -final 70 Tube Feeding Supplement Streng: Full Feeding Route: FT Placed Oralgastric Current Duration: 24 Current Calories: 1780 (based on final rate of 70ml/hr) Current Protein: 75 (based on final rate ) Current Lipids Calories: 605 (propofol at 25.2mls/hr) Total Current Calories: 2385 Nutrition Monitoring & Eval Nutritional Goals Comment: TF will meet nutr needs until oral intake can meet needs. RD Patient Assessment Time: [address] Assessment Type: RD Re-Assessment Patient Nutrition Acuity: 1-High Follow Up Date: Jan 29, 2018 Nutritional Comment: 01/22 Pt admitted with septic shock and ARF. Pt on regular diet and ate a small amount of first meal in facility. Pt reporteing N/V which may be affecting intake. Alb 3.5, WBC 25.7, Hct 136.8, Hbg 12.7. Will cont to monitor and encourage intake. 01/23 Intake very low likely due to N/V. Will offer nutr suppl if intake is less than 50%. Wt is up 24# since admit due to IVF. Notable labs include low H/H, BUN 29, Mg 1.6, elevated liver enz, tot pro 5.3 and alb 2.6. Will cont to monitor and encourage intake. 4/3 Pt placed on mech vent and TF. Est needs recalculated using [facility] formulary r/t mech vent. Pt recieving jevity 1 with final rate of 70 ml/hr plus propofol at 25.2mls/hr. TF+ propofol meeting 106% est kcal and protein needs. Fluid needs should be met with TF and IV fluids. Will cont to monitor. KIAN SUERO Jan 26, 2018 11:20
[2018-01-26] MEDS: HYPROMELLOSE 0.4% LUB 15ML BTL OU PRN (11:31)
[2018-01-26] MEDS: VANCOMYCIN(*) 1 GM VIAL 1 GM, VANCOMYCIN (*) 0.5 GM VIAL 0.25 GM in NS(*) 0.9% 250 ML B... IVPB SCH ×2 (11:32→18:31)
--- NOTE | 2018-01-26 14:16 | General Surgery Consultation ---
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 his wbc remain quite elevated. he is on a vent. History Home Meds Active Scripts Tacrolimus (TACROLIMUS) 5 Mg Capsule, 5 MG PO DAILY for 90 Days, #90 CAPSULE 3 Refills Prov:DENISSE [facility], ONC 12/15/17 Pantoprazole Sodium (PANTOPRAZOLE SODIUM) 40 Mg Tablet.dr, 1 TAB PO QDAY for 90 Days, #90 TAB 3 Refills Take 1 tab 30 mins before breakfast. Prov:DENISSE [facility], ONC 12/15/17 Discontinued Scripts Promethazine Hcl (PROMETHAZINE HCL) 25 Mg Tablet, 25 MG PO Q8H Y for NAUSEA/ VOMITING, #12 TAB Prov:CHICO [facility]VEZ [facility] 01/20/18 Levofloxacin 750 Mg Tab (LEVAQUIN 750 MG TAB) 750 Mg Tablet, 750 MG PO DAILY, # 9 TAB Prov:[facility] 01/20/18 Azithromycin (Z-PACK) 250 Mg Tablet, 0 PO QDAY, #6 DOSE-PACK Prov:DENISSE WILSON [facility], ONC 12/15/17 Allergies: Coded Allergies: amphotericin B (Verified Allergy, Severe, ANAPHYLAXIS, 12/17/16) Penicillins (Verified Allergy, Mild, RASH, 12/17/16) A CHILD AGE 4 Family History: FH: diabetes mellitus FATHER MOTHER FH: hypertension FATHER MOTHER Review of Systems Other A.L.L. and graft vs host disease. Exam Vital Signs Vital Signs Date Time Temp Pulse Resp B/P (MAP) Pulse Ox O2 Delivery O2 Flow Rate FiO2 01/26/18 13:30 85 48 122/86 (98) 92 Mechanical Ventilator 40.0 01/26/18 13:15 98.4 01/24/18 08:10 General Appearance: Other (on vent and sedated) Medical Decision Making Data Points Result Diagram: 01/26/18 0500 01/26/18 0500 Assessment and Plan Problems: (1) Severe sepsis Status: Acute Assessment & Plan: will proceed with a bone marrow biopsy Copies to: YENY ARREDONDO MD Venous Thromboembolism Antithrombotics Is Pt On Any Antithrombotics?: No YENY ARREDONDO MD Jan 26, 2018 14:16
[2018-01-26] MEDS: ARTIFICIAL TEARS OINT 7 GM 7 GM TUBE OU SCH (21:34)
[2018-01-27] VITALS (61 sets, daily range): BP systolic 69–144; BP diastolic 55–123
[2018-01-27] MEDS: VANCOMYCIN(*) 1 GM VIAL 1 GM, VANCOMYCIN (*) 0.5 GM VIAL 0.25 GM in NS(*) 0.9% 250 ML B... IVPB SCH (03:27)
[2018-01-27] MEDS: PROPOFOL(*)1000 MG/100 ML VIAL 100 ML IV PRN ×5 (03:27→22:44)
[2018-01-27 05:07] LABS: PLATELET COUNT, AUTOMATED 105 K/uL (150-450)
[2018-01-27 05:25] LABS: INR 1.13
[2018-01-27] MEDS: MIDAZOLAM 50 MG/10 ML 1ML VIAL 100 MG in NS(*) 0.9% 100 ML BAG 80 ML IV PRN (06:00)
[2018-01-27] MEDS ORDERED: KCL (*) 20 MEQ/100 ML PREMIX 100 ML IV ONE ×2 (06:05→10:00)
--- NOTE | 2018-01-27 06:53 | RADIOLOGY IMAGING REPORT ---
FACILITY: [facility] - [place] PATIENT NAME: Lucio Lloyd : 1985 MR: [id number] V: [id number] EXAM DATE: ORDERING PHYSICIAN: TIFFANY JACINTO TECHNOLOGIST: Location: [facility] - [place] Patient: Lucio Lloyd : 1985 Visit/Account:[id number] Date of Sevice: 01/27/2018 CHEST SINGLE AP COMPARISONS: Single view chest dated January 26, 2018 ADDITIONAL PERTINENT HISTORY: ARDS FINDINGS: Life-support: Right internal jugular venous catheter, endotracheal tube and NG tube in good position. Cardiomediastinal silhouette: Negative. Pulmonary vasculature: Negative. Lung collins: Improved but persistent patchy areas of infiltrate involving both lung bases. Pleural spaces: Negative. Osseous structures: Negative. Surrounding soft tissues: Negative. IMPRESSION: 1. Improving but persistent patchy infiltrates involving both hemithoraces. 2. Stable life support. Report Dictated By: Jelani Allen MD at 01/27/2018 6:47 AM Report E-Signed By: Jelani Allen MD at 01/27/2018 6:48 AM WSN:[id number]
[2018-01-27] MEDS ORDERED: HEPARIN SOD LCK FLSH 100 UN/ML ONE (07:13)
[2018-01-27] MEDS ORDERED: ROPIVACAINE 0.2% 20 ML VIAL ONE (07:14)
[2018-01-27] MEDS ORDERED: fentaNYL CITR 100 MCG/2 ML AMP IVP ONE (07:30)
--- NOTE | 2018-01-27 07:58 | Post Operative Progress Note ---
Post Operative Progress Note Date: Jan 27, 2018 Time: 07:57 Surgeon: marco Anesthesia: local and sedation Pre-Op Diagnosis: sepsis Post-Op Diagnosis: same Procedure(s): bone marrow biopsy YENY ARREDONDO MD Jan 27, 2018 07:58
[2018-01-27] MEDS: HYDROCORTISONE 100 MG/2 ML IVP SCH ×2 (09:30→20:21)
[2018-01-27] MEDS: NS(*) 0.9% 500 ML BAG 500 ML IV PRN ×2 (09:30→11:24)
[2018-01-27] MEDS: PANTOPRAZOLE SOD 40 MG IV VIAL IVP SCH (09:30)
[2018-01-27] MEDS: ARTIFICIAL TEARS OINT 7 GM 7 GM TUBE OU SCH ×2 (09:31→20:24)
[2018-01-27] MEDS: TACROLIMUS 0.5 MG CAPSULE FT SCH ×2 (09:31→20:22)
[2018-01-27] MEDS: ORAL SUCTION/CHLORHX/SWAB KIT MT SCH ×2 (09:31→20:24)
[2018-01-27] MEDS: MOXIFLOX(*) 400MG/250ML PREMX 250 ML IVPB SCH (10:07)
--- NOTE | 2018-01-27 10:10 | EKG ---
FACILITY: [facility] - [place] PATIENT NAME: JAC MARTINEZ : [id number] MR: [id number] V: [id number] EXAM DATE: ORDERING PHYSICIAN: SABINE GONCALVES TECHNOLOGIST: REJI Espana Reason : INVERTED TWAVES Blood Pressure : / mmHG Vent. Rate : 067 BPM Atrial Rate : 067 BPM P-R Int : 120 ms QRS Dur : 082 ms QT Int : 432 ms P-R-T Axes : 037 -15 -55 degrees QTc Int : 456 ms Sinus rhythm Nonspecific T wave abnormality Abnormal ECG When compared with ECG of 01/22/[address] elevation laterally has resolved. Now with diffuse T flattening. Confirmed by SABINE GONCALVES ([id number]) on 01/27/2018 5:44:29 PM Referred By: IVANNA Confirmed By:SABINE GONCALVES
[2018-01-27] MEDS ORDERED: VANCOMYCIN 1 GM ADDVIAL 1 GM in NS(*) 0.9% 250 ML ADDVAN BAG 250 ML IVPB SCH (11:00)
[2018-01-27] MEDS: KCL (*) 20 MEQ/100 ML PREMIX 100 ML IV SCH ×4 (11:25→19:07)
--- NOTE | 2018-01-27 12:30 | Hospitalist Progress Note ---
Subjective Progress Notes Subjective The patient was increased on the Vt with improvement in the respiratory rate. Tolerating slow increase of tube feedings. No further worsening of subcutaneous hemorrhage in LE bilaterally. Physical Exam Vital Signs Date Time Temp Pulse Resp B/P (MAP) Pulse Ox O2 Delivery O2 Flow Rate FiO2 01/27/18 11:33 92 Mechanical Ventilator 45.0 01/27/18 11:31 75 01/27/18 11:30 99.6 29 122/79 (93) 01/24/18 08:10 Intake and Output 01/28/18 07:00 Intake Total 614 ml Output Total 185 ml Balance 429 ml IV Total 520 ml Tube Feeding 94 ml Output Urine Total 185 ml # Bowel Movements 1 General Appearance: Other (Intubated and sedated.) Eyes: Other (Injected sclera worse on the left. No matting of eyelids or discharge) ENT: Moist Mucous Membranes Cardiovascular: Regular Rate and Rhythm Respiratory: Other (Anterior insp crackles on the left) GI: Other (Soft, mildly to moderately distended) Extremities: Warm, Pulses, Perfused, Other (About mid guzmán down there is confluent macular violaceous to red lesions. It extends to the feet. Left foot with dark purplish distal toes that are demarcated) Result Diagram: 01/27/18 0455 01/27/18 0455 Monitor Interpretation: Normal Sinus Rhythm Assessment and Plan Problems: (1) Meningitis due to Streptococcus pneumoniae Assessment & Plan: On admission he complained of headache and neck stiffness. We were unable to obtain a lumbar puncture because of his elevated INR. We elected to treat him initially with Primaxin, vancomycin, and moxifloxacin (due to penicillin allergy). Blood cultures from this admission and his previous ER visit have shown pansensitive Streptococcus pneumoniae. We have narrowed his antibiotics to moxifloxacin and vancomycin. Plan at this time would be for 14 days of IV vancomycin and Avelox. He is having low grade temperatures and WBC still high. (2) ARDS (adult respiratory distress syndrome) Status: Acute Assessment & Plan: He did develop increased work of breathing and O2 requirement. His chest x-ray has shown diffuse bilateral infiltrates consistent with ARDS. He has been intubated and placed on mechanical ventilation on 01/24. His CXR has shown some minor improvements. His O2 requirement has improved and we have been able to increase the tidal volumes. He has not tolerated PS/PEEP trials. He becomes very tachypneic. See below. (3) Acute respiratory failure Assessment & Plan: He is on mechanical ventilation. He is receiving propofol and versed for sedation. The tube feedings are slowing being titrated up. (4) Leukocytosis Status: Acute Assessment & Plan: He has had an elevated WBC fairly persistently back to 2015. However, this admission his WBC is much higher. It is trending down, but still very elevated. The patient has a h/o ALL and is on steroids. Dr. Beni Ann (Heme/Onc) requested a bone marrow biopsy, that was done today. (5) Hypokalemia Assessment & Plan: Secondary to IV Lasix. We are holding Lasix and replacing with IV potassium. Mg is wnl, currently. (6) DIC (disseminated intravascular coagulation) Status: Resolved Assessment & Plan: It does appear that he developed DIC, but is not having any bleeding or clotting at this time. We have elected not to place him prophylactic Lovenox because of the thrombocytopenia and the recent bone marrow biopsy, but he does have SCDs in place. (7) Septic shock Status: Acute Assessment & Plan: He did present with fever of 103F. His cultures are positive for S. pneumoniae. His lactate and WBC were elevated. He did require vasopressor support with norepinephrine and fluid resuscitation. He was also started on stress dose hydrocortisone. He has now weaned off vasopressor support, but steroids have been continued. (8) Acute renal failure Status: Resolved Assessment & Plan: Resolved with IV fluids. (9) Kpbrb-ihcnqe-kocx disease Status: Chronic Assessment & Plan: He is on chronic treatment with tacrolimus. A level was in therapeutic range. He is back on tacrolimus now that the acute sepsis is improving. I am awaiting a call back from the patient's bone marrow transplant team in regards to management of the tacrolimus and need for broadening of coverage of antibiotics. 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
[2018-01-27] MEDS: MORPHINE 2 MG/ML SYR IVP PRN ×3 (12:42→23:31)
[2018-01-27] MEDS: ACETAMINOPHEN(*)1000 MG/100 ML 100 ML IVPB PRN (12:42)
--- NOTE | 2018-01-27 14:16 | OPERATIVE REPORT 1 ---
EVENT DATE: January 27, 2018 SURGEON: Audie Porter MD ANESTHESIA: Local with sedation. PREOPERATIVE DIAGNOSIS Sepsis with a history of acute lymphocytic leukemia and ofpyh-bsrekg-jagb disease. POSTOPERATIVE DIAGNOSIS Sepsis with a history of acute lymphocytic leukemia and acpmr-lgtucc-tafa disease. PROCEDURE PERFORMED Right iliac bone marrow biopsy. DESCRIPTION OF PROCEDURE Patient was placed in the left lateral decubitus position. He was on a ventilator. He was given some extra Fentanyl IV. He was already on sedative dose. The area was prepped and draped in sterile fashion. Skin was anesthetized with 1% Xylocaine. Todd was made in the skin with a #11 blade. We then used the bone marrow biopsy needle to enter the posterior iliac. After we entered it, we obtained a sample of the marrow. This clotted immediately. We were able to get some specimen, but not a great specimen. We did have some bone spicules. We then attempted to get another specimen, but it did not want to flow. We tried different angles with the needle and different depths, different locations on that right side, but we could not get any flow. I obtained two nice cores of the bone marrow biopsy, and at this point the procedure was terminated. The area was cleansed, and bandage was placed. He was placed in the supine position. [facility]
--- NOTE | 2018-01-27 16:47 | RADIOLOGY IMAGING REPORT ---
FACILITY: [facility] PATIENT NAME: Lucio Lloyd : 1985 MR: [id number] V: [id number] EXAM DATE: ORDERING PHYSICIAN: SABINE GONCALVES TECHNOLOGIST: Location: [facility] - [place], [place] Patient: Lucio Lloyd : 1985 Visit/Account:[id number] Date of Sevice: 01/27/2018 Exam type: ACUTE ABDOMEN SERIES 3 VIEW History: abdominal distention Comparison: CT chest abdomen pelvis January 21, 2018. Findings: Supine and left lateral decubitus views of the abdomen reveal a nonspecific bowel gas pattern. There is no free air beneath hemidiaphragms or collecting over the right hepatic border. An NG tube proje cts over the left upper quadrant of abdomen. There is a probe projecting over the lower pelvis.. There is no evidence of organomegaly. Portable semiupright chest demonstrates an endotracheal tube with the distal tip projecting between t he clavicles and the eden. There is an NG/OG tube distal tip projects over the left upper quadrant abdomen. A right IJ catheter distal tip projects over the superior vena cava. There has been devel opment of patchy airspace consolidation throughout the lungs which is increased in the interim. Ther e are also small bilateral pleural effusions. The cardiac silhouette is normal in size. IMPRESSION: 1. There is a nonspecific bowel gas pattern There is been development of patchy bilateral airspace consolidation throughout the lungs when compar ed to the prior CT from January 21, 2018 Report Dictated By: Christy Salguero MD at 01/27/2018 4:23 PM Report E-Signed By: Christy Salguero MD at 01/27/2018 4:41 PM WSN:[email or web address]
[2018-01-27] MEDS ORDERED: FUROSEMIDE 40 MG/4 ML VIAL IVP ONE (16:55)
[2018-01-27] MEDS: NS 0.45%(*) 1000 ML BAG 1,000 ML IV PRN ×2 (17:13→17:14)
[2018-01-27] MEDS: VANCOMYCIN IVPB SCH (18:23)
[2018-01-27] MEDS: D5W IVPB SCH (18:23)
[2018-01-27] MEDS: ADDVIAL IVPB SCH (18:23)
[2018-01-28] VITALS (47 sets, daily range): BP systolic 100–135; BP diastolic 50–99
[2018-01-28] MEDS: ADDVIAL IVPB SCH ×3 (02:54→18:20)
[2018-01-28] MEDS: VANCOMYCIN IVPB SCH ×3 (02:54→18:20)
[2018-01-28] MEDS: D5W IVPB SCH ×3 (02:54→18:20)
[2018-01-28] MEDS: MORPHINE 2 MG/ML SYR IVP PRN ×5 (03:40→21:43)
[2018-01-28] MEDS: PROPOFOL(*)1000 MG/100 ML VIAL 100 ML IV PRN ×3 (04:17→19:30)
[2018-01-28 05:17] LABS: PLATELET COUNT, AUTOMATED 131 K/uL (150-450)
--- NOTE | 2018-01-28 05:21 | RADIOLOGY IMAGING REPORT ---
FACILITY: [facility] PATIENT NAME: Lucio Lloyd : 1985 MR: [id number] V: [id number] EXAM DATE: ORDERING PHYSICIAN: SABINE GONCALVES TECHNOLOGIST: Location: [facility] Patient: Lucio Lloyd : 1985 Visit/Account:[id number] Date of Sevice: 01/28/2018 CHEST SINGLE AP COMPARISONS: Single view chest dated January 27, 2018 ADDITIONAL PERTINENT HISTORY: Respiratory failure FINDINGS: Life-support: Right internal jugular venous catheter, endotracheal tube and NG tube remain in place. Cardiomediastinal silhouette: Negative. Pulmonary vasculature: Negative. Lung collins: Improved but persistent patchy areas of infiltrate involving the mid and lower lung fie lds bilaterally. Pleural spaces: Negative. Osseous structures: Negative. Surrounding soft tissues: Negative. IMPRESSION: 1. Stable life support. 2. Improved but persistent bilateral infiltrates. Report Dictated By: Jelani Allen MD at 01/28/2018 5:16 AM Report E-Signed By: Jelani Allen MD at 01/28/2018 5:17 AM WSN:[id number]
[2018-01-28] MEDS: ACETAMINOPHEN(*)1000 MG/100 ML 100 ML IVPB PRN (07:19)
[2018-01-28] MEDS: HYDROCORTISONE 100 MG/2 ML IVP SCH ×2 (08:37→20:17)
[2018-01-28] MEDS: PANTOPRAZOLE SOD 40 MG IV VIAL IVP SCH (08:38)
[2018-01-28] MEDS: ENOXAPARIN 40 MG/0.4ML SYR SC SCH (08:38)
[2018-01-28] MEDS: ARTIFICIAL TEARS OINT 7 GM 7 GM TUBE OU SCH ×2 (08:38→20:16)
[2018-01-28] MEDS: KCL (*) 20 MEQ/100 ML PREMIX 100 ML IV SCH ×4 (08:38→18:11)
--- NOTE | 2018-01-28 08:47 | Hospitalist Progress Note ---
Subjective Progress Notes Subjective The patient remains intubated and sedated. Per nursing staff, he moves all 4 extremities when his sedation is lowered. He does not follow commands. Physical Exam Vital Signs Date Time Temp Pulse Resp B/P (MAP) Pulse Ox O2 Delivery O2 Flow Rate FiO2 01/28/18 07:44 45.0 01/28/18 07:36 71 22 01/28/18 07:36 93 Mechanical Ventilator 01/28/18 07:30 114/69 (84) 01/28/18 07:00 98.2 01/24/18 08:10 Intake and Output 01/29/18 07:00 Intake Total 112 ml Output Total 155 ml Balance -43 ml IV Total 112 ml Output Urine Total 155 ml General Appearance: No Acute Distress, Afebrile, Other (Sedated.) Cardiovascular: Regular Rate and Rhythm Respiratory: Clear to Auscultation (Anteriorly.) Chest: Other (Central line R upper chest without redness or drainage.) GI: Other (Distended, few BS heard. Nontender.) Extremities: Warm, Perfused, Edema (1+) Integumentary: Other (Arms with red scaling skin with some excoriations noted. Both legs with patchy ecchymotic areas. Tipe of several toes with small necrotic areas. ) Psych: Other (Sedated.) Result Diagram: 01/28/1845201/28/18452 Item Value Date Time Neutrophils % (Manual) 55 % 01/28/18452 Band Neutrophils % 15 % 01/28/18452 Lymphocytes % (Manual) 13 % L 01/28/18452 Atypical Lymphocytes % 3 % 01/28/18452 Monocytes % (Manual) 2 % L 01/28/18452 Eosinophils % (Manual) 2 % 01/28/18452 Basophils % (Manual) 0 % L 01/28/18452 Metamyelocytes % 8 % 01/28/18452 Myelocytes % 2 % 01/28/18452 Nucleated Red Blood Cells 2 01/28/18452 Polychromasia 1+ 01/28/18452 Total Bilirubin 0.5 mg/dl 01/28/18452 Aspartate Amino Transf (AST/SGOT) 34 U/L 01/28/18452 Alanine Aminotransferase (ALT/SGPT) 50 U/L 4/5/18 0453 Alkaline Phosphatase 99 U/L 01/28/18 0453 Total Protein 4.7 gm/dl L 01/28/18 0453 Albumin 2.2 g/dl L 01/28/18 0453 Lipase 158 U/L 01/28/18 0543 Blood Gas Puncture Site Left radial 01/28/18 0500 Blood Gas Patient Temperature 97.7 DEGREES 01/28/18 0500 Arterial Blood pH 7.52 H 01/28/18 0500 Arterial Blood Partial Pressure CO2 35 mmHg 01/28/18 0500 Arterial Blood Partial Pressure O2 51 mmHg L 01/28/18 0500 Arterial Blood HCO3 28 mmol/L H 01/28/18 0500 Arterial Blood Oxygen Saturation 90 % L 01/28/18 0500 Arterial Blood Base Excess 5.0 mmol/L 01/28/18 0500 Emil Test Acceptable 01/28/18 0500 Oxygen Liters/Minute [id number] 01/28/18 0500 Monitor Interpretation: Normal Sinus Rhythm Assessment and Plan Problems: (1) Meningitis due to Streptococcus pneumoniae Assessment & Plan: On admission he complained of headache and neck stiffness. We were unable to obtain a lumbar puncture because of his elevated INR. We elected to treat him initially with Primaxin, vancomycin, and moxifloxacin (due to penicillin allergy). Blood cultures from this admission and his previous ER visit have shown pansensitive Streptococcus pneumoniae. We have narrowed his antibiotics to moxifloxacin and vancomycin. Plan at this time would be for 14 days of IV vancomycin and Avelox. He is having fewer low grade temperatures and WBC is starting to come down. (2) ARDS (adult respiratory distress syndrome) Status: Acute Assessment & Plan: He did develop increased work of breathing and O2 requirement. His chest x-ray has shown diffuse bilateral infiltrates consistent with ARDS. He was intubated and placed on mechanical ventilation on 01/24. His CXR continues to show improvements. His O2 requirement has improved and we have been able to increase the tidal volumes. He has not tolerated PS/ PEEP trials. He becomes very tachypneic. See below. (3) Acute respiratory failure Assessment & Plan: He is on mechanical ventilation. He is receiving propofol and versed for sedation. The tube feedings are slowing being titrated up. (4) Leukocytosis Status: Acute Assessment & Plan: He has had an elevated WBC fairly persistently back to 2014. However, this admission his WBC is much higher. It is trending down, but still very elevated. The patient has a h/o ALL and is on steroids. Dr. Beni Ann (Heme/Onc) requested a bone marrow biopsy, that was done 01/27. Results are pending. (5) Hypokalemia Assessment & Plan: Secondary to IV Lasix. His potassium level has improved. (6) DIC (disseminated intravascular coagulation) Status: Resolved Assessment & Plan: It does appear that he developed DIC, but is not having any bleeding or clotting at this time. We elected not to place him prophylactic Lovenox initially because of the thrombocytopenia and the recent bone marrow biopsy. He has had SCDs in place. Today his platelets have improved and are over 100K. Will start Lovenox and monitor bone marrow biopsy site. (7) Septic shock Status: Acute Assessment & Plan: He did present with fever of 103F. His cultures are positive for S. pneumoniae. His lactate and WBC were elevated. He did require vasopressor support with norepinephrine and fluid resuscitation. He was also started on stress dose hydrocortisone. He has now weaned off vasopressor support, but steroids have been continued. (8) Acute renal failure Status: Resolved Assessment & Plan: Resolved with IV fluids. (9) Skpdd-jlyekz-okmj disease Status: Chronic Assessment & Plan: He is on chronic treatment with tacrolimus. A level was in therapeutic range. He is back on tacrolimus now that the acute sepsis is improving. We are awaiting a call back from the patient's bone marrow transplant team in regards to management of the tacrolimus and need for broadening of coverage of antibiotics. 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
[2018-01-28] MEDS: ORAL SUCTION/CHLORHX/SWAB KIT MT SCH ×2 (08:54→20:16)
[2018-01-28] MEDS ORDERED: FUROSEMIDE 40 MG/4 ML VIAL IVP ONE (09:00)
[2018-01-28] MEDS: MOXIFLOX(*) 400MG/250ML PREMX 250 ML IVPB SCH (10:15)
[2018-01-28] MEDS: TACROLIMUS 0.5 MG CAPSULE FT SCH ×2 (10:27→20:16)
[2018-01-28] MEDS ORDERED: MAGNESIUM SUL* 2 GM/50 ML IVPB 50 ML IVPB ONE (15:10)
--- NOTE | 2018-01-28 16:14 | Medical Nutrition Therapy ---
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 Support, Inablility to Feed Self Nutrition Etiology: Physiological Causes Nutrition Problem/Etiology/Sym: Inability to feed self/inadequate kcal from nutritional support r/t sedated and on mech vent AEB enteral nutrtion meeting 92% est kcal and 106% est nutr needs. Adjusted Energy Requirement Re: 2245 ([facility] RMR (1855) X 1.1 AF X1.1 SF) Protein Requirement: 71 (1.1gm/kg) Fluid Requirement: 2170 (35 ml/kg) Diet Type: NPO (Nothing by Mouth), Tube Feeding (TF) Nutrition Intervention: Nutrition support, Incr diet as tolerated Nutritional Support Current Enteral / Parental: Tube Feeding Tube Feeding Formulas: Jevity 1cal/ml-Standard Current Tube Feeding Formula C: 10ml/hr increase 5 q 6 hr -final 70 Tube Feeding Supplement Streng: Full Feeding Route: FT Placed Oralgastric Current Duration: 24 Current Calories: 1780 (based on final rate of 70ml/hr) Current Protein: 75 (based on final rate ) Current Lipids Calories: 302 (propofol at 12.6mls/hr) Total Current Calories: 2082 Free H2O bolus for hydration (: 20ml X 6 Nutrition Monitoring & Eval RD Patient Assessment Time: [address] Assessment Type: RD Re-Assessment Patient Nutrition Acuity: 1-High Follow Up Date: Jan 30, 2018 Nutritional Comment: 01/22 Pt admitted with septic shock and ARF. Pt on regular diet and ate a small amount of first meal in facility. Pt reporteing N/V which may be affecting intake. Alb 3.5, WBC 25.7, Hct 136.8, Hbg 12.7. Will cont to monitor and encourage intake. 01/23 Intake very low likely due to N/V. Will offer nutr suppl if intake is less than 50%. Wt is up 24# since admit due to IVF. Notable labs include low H/H, BUN 29, Mg 1.6, elevated liver enz, tot pro 5.3 and alb 2.6. Will cont to monitor and encourage intake. 4/3 Pt placed on mech vent and TF. Est needs recalculated using [facility] formulary r/t mech vent. Pt recieving jevity 1 with final rate of 70 ml/hr plus propofol at 25.2mls/hr. TF+ propofol meeting 106% est kcal and protein needs. Fluid needs should be met with TF and IV fluids. Will cont to monitor. 4/5 TF stopped for high residuals then resumed. Cont to slowly increase by 5ml q 6 hrs final rate of 70ml/hr with 20ml water X 6. Nursing reported tolerating well last assessment. Propofol has declined to 12.6mls/hr. With decreased propofol, TF is meeting 93% est kcal needs and 106% est protein needs. Pt may benefit from a final rate of 75ml/hr to provide 2210kcal with current rate of propofol and meet kcal needs. Alb cont low at 2.2. Wt is up 7# since admit. KIAN SUERO Jan 28, 2018 16:14
[2018-01-28] MEDS: MIDAZOLAM 50 MG/10 ML 1ML VIAL 100 MG in NS(*) 0.9% 100 ML BAG 80 ML IV PRN (18:11)
[2018-01-28] MEDS ORDERED: [UNRECOGNIZED DRUG - OTHER] IV ONE (21:00)
[2018-01-29] VITALS (48 sets, daily range): BP systolic 96–136; BP diastolic 47–102
[2018-01-29] MEDS: MORPHINE 2 MG/ML SYR IVP PRN ×6 (01:18→22:25)
[2018-01-29] MEDS: D5W IVPB SCH (02:28)
[2018-01-29] MEDS: VANCOMYCIN IVPB SCH (02:28)
[2018-01-29] MEDS: ADDVIAL IVPB SCH (02:28)
[2018-01-29] MEDS: PROPOFOL(*)1000 MG/100 ML VIAL 100 ML IV PRN ×3 (02:29→17:34)
[2018-01-29 05:40] LABS: PLATELET COUNT, AUTOMATED 176 K/uL (150-450)
--- NOTE | 2018-01-29 05:47 | RADIOLOGY IMAGING REPORT ---
[place] [facility] [place] Lucio Lloyd : 1985 MR: [id number] V: [id number] EXAM DATE: ORDERING PHYSICIAN: ORAL JACINTO TECHNOLOGIST: Location: [facility] Patient: Lucio Lloyd : 1985 Visit/Account:[id number] Date of Sevice: 01/29/2018 CHEST SINGLE AP COMPARISONS: Single view chest dated January 28, 2018 ADDITIONAL PERTINENT HISTORY: ARDS FINDINGS: Life-support: Right internal jugular venous catheter, endotracheal tube and NG tube in good position. Cardiomediastinal silhouette: Negative. Pulmonary vasculature: Negative. Lung collins: Patchy areas of opacity in both lung bases improved from previous exam. No new regions of infiltrate. Pleural spaces: Small left-sided pleural effusion. Osseous structures: Negative. Surrounding soft tissues: Negative. IMPRESSION: 1. Stable life support. 2. Improving areas of infiltrate involving both hemithoraces. 3. Continued tiny left-sided pleural effusion. Report Dictated By: Jelani Allen MD at 01/29/2018 5:42 AM Report E-Signed By: Jelani Allen MD at 01/29/2018 5:43 AM WSN:[id number]
--- NOTE | 2018-01-29 08:10 | Hospitalist Progress Note ---
Subjective Progress Notes Subjective Sedated on ventilator. He does open his eyes to verbal stimuli. Physical Exam Vital Signs Date Time Temp Pulse Resp B/P (MAP) Pulse Ox O2 Delivery O2 Flow Rate FiO2 01/29/18 07:25 40.0 01/29/18 07:05 95 Mechanical Ventilator 01/29/18 07:00 75 20 112/68 (83) 01/29/18 05:00 97.4 General Appearance: Other (sedated on ventilator) Cardiovascular: Regular Rate and Rhythm Respiratory: Other (fairly clear with only few coarse ventilator sounds) GI: Other (soft with rare BS) Extremities: Warm, Perfused Result Diagram: 01/29/18 0512 01/29/18 0512 Item Value Date Time Albumin 2.3 g/dl L 01/29/18 0512 Total Protein 5.1 gm/dl L 01/29/18 0512 Alkaline Phosphatase 87 U/L 01/29/18 0512 Alanine Aminotransferase (ALT/SGPT) 41 U/L 01/29/18 0512 Aspartate Amino Transf (AST/SGOT) 22 U/L 01/29/18 0512 Total Bilirubin 0.5 mg/dl 01/29/18 0512 Magnesium Level 2.1 mg/dl 01/29/18 0512 Calcium Level 7.5 mg/dl L 01/29/18 0512 Blood Gas Puncture Site Left radial 01/29/18 0512 Blood Gas Patient Temperature 97.6 DEGREES 01/29/18 0512 Arterial Blood pH 7.51 H 01/29/18 0512 Arterial Blood Partial Pressure CO2 38 mmHg H 01/29/18 0512 Arterial Blood Partial Pressure O2 57 mmHg L 01/29/18 0512 Arterial Blood HCO3 30 mmol/L H 01/29/18 0512 Arterial Blood Oxygen Saturation 92 % 01/29/18 0512 Arterial Blood Base Excess 7.0 mmol/L 01/29/18 0512 Emil Test Acceptable 01/29/18 0512 Oxygen Liters/Minute 40% 01/29/18 0512 Imaging PATIENT NAME: Lucio Lloyd : 1985 MR: [id number] V: [id number] EXAM DATE: ORDERING PHYSICIAN: ORAL JACINTO TECHNOLOGIST: [place]: [facility] [place]: Lucio Lloyd : 1985 Visit/Account:[id number] Date of krishan: 01/29/2018 CHEST SINGLE AP COMPARISONS: Single view chest dated January 28, 2018 ADDITIONAL PERTINENT HISTORY: ARDS FINDINGS: Life-support: Right internal jugular venous catheter, endotracheal tube and NG tube in good position. Cardiomediastinal silhouette: Negative. Pulmonary vasculature: Negative. Lung collins: Patchy areas of opacity in both lung bases improved from previous exam. No new regions of infiltrate. Pleural spaces: Small left-sided pleural effusion. Osseous structures: Negative. Surrounding soft tissues: Negative. IMPRESSION: 1. Stable life support. 2. Improving areas of infiltrate involving both hemithoraces. 3. Continued tiny left-sided pleural effusion. Report Dictated By: Jelani Allen MD at 01/29/2018 5:42 AM Report E-Signed By: Jelani Allen MD at 01/29/2018 5:43 AM WSN:[id number] Monitor Interpretation: Normal Sinus Rhythm Assessment and Plan Problems: (1) Meningitis due to Streptococcus pneumoniae Assessment & Plan: Possible/suspected. On admission he complained of headache and neck stiffness. We were unable to obtain a lumbar puncture because of his elevated INR. We elected to treat him initially with Primaxin, vancomycin, and moxifloxacin (due to penicillin allergy). Blood cultures from this admission and his previous ER visit have shown pansensitive Streptococcus pneumoniae. We have narrowed his antibiotics to moxifloxacin and vancomycin. Plan at this time would be for 14 days of IV vancomycin and Avelox. He has been afebrile and WBC is coming down. (2) ARDS (adult respiratory distress syndrome) Status: Acute Assessment & Plan: He did develop increased work of breathing and O2 requirement. His chest x-ray has shown diffuse bilateral infiltrates consistent with ARDS. He was intubated and placed on mechanical ventilation on 01/24. His CXR continues to show improvements. His O2 requirement has remained fairly static at 40%. Will try to work on PEEP (currently at 10cm H20 pressure). (3) Acute respiratory failure Assessment & Plan: He is on mechanical ventilation. He is receiving propofol and versed for sedation. The tube feedings are going to be restarted. Will keep on 1/2 dose TPN for now. (4) Leukocytosis Status: Acute Assessment & Plan: He has had an elevated WBC fairly persistently back to 2015. However, this admission his WBC has been much higher. It is now trending down. The patient has a h/o ALL and is on Prograf and currently on IV steroids. Dr. Herron (Heme/Onc) requested a bone marrow biopsy, that was done 01/27. Results are pending. (5) Hypokalemia Assessment & Plan: Secondary to IV Lasix. His potassium level is normal with supplements. (6) DIC (disseminated intravascular coagulation) Status: Resolved Assessment & Plan: It did appear that he developed DIC. He is not having any bleeding or clotting at this time. We elected not to place him prophylactic Lovenox initially because of the thrombocytopenia and the recent bone marrow biopsy. He has had SCDs in place. Today his platelets have improved and are over 150K. We did start Lovenox. (7) Septic shock Status: Acute Assessment & Plan: He did present with fever of 103F. His cultures are positive for S. pneumoniae. His lactate and WBC were elevated. He did require vasopressor support with norepinephrine and fluid resuscitation. He was also started on stress dose hydrocortisone. He has now weaned off vasopressor support, but steroids have been continued. (8) Acute renal failure Status: Resolved Assessment & Plan: Resolved with IV fluids. (9) Kvfzi-tjkdgr-auiq disease Status: Chronic Assessment & Plan: He is on chronic treatment with tacrolimus. A level was in therapeutic range. He is back on tacrolimus now that the acute sepsis is improving. 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
[2018-01-29] MEDS: HYDROCORTISONE 100 MG/2 ML IVP SCH ×2 (08:49→21:14)
[2018-01-29] MEDS: ORAL SUCTION/CHLORHX/SWAB KIT MT SCH ×2 (08:53→21:14)
[2018-01-29] MEDS: ARTIFICIAL TEARS OINT 7 GM 7 GM TUBE OU SCH ×2 (08:54→21:15)
[2018-01-29] MEDS: ENOXAPARIN 40 MG/0.4ML SYR SC SCH (08:55)
[2018-01-29] MEDS: PANTOPRAZOLE SOD 40 MG IV VIAL IVP SCH (08:56)
[2018-01-29] MEDS: TACROLIMUS 0.5 MG CAPSULE FT SCH ×2 (08:59→21:15)
[2018-01-29] MEDS: MOXIFLOX(*) 400MG/250ML PREMX 250 ML IVPB SCH (10:20)
[2018-01-29] MEDS ORDERED: FUROSEMIDE 40 MG/4 ML VIAL IVP ONE (11:00)
[2018-01-29] MEDS: VANCOMYCIN(*) 1 GM VIAL 1 GM, VANCOMYCIN (*) 0.5 GM VIAL 0.25 GM in NS(*) 0.9% 250 ML B... IVPB SCH ×2 (11:42→19:03)
[2018-01-29] MEDS: INSULIN HUM LISPRO 100 UN/ML 3 ML VIAL SUBQ PRN ×2 (12:46→18:08)
[2018-01-29] MEDS: ACETAMINOPHEN(*)1000 MG/100 ML 100 ML IVPB PRN ×2 (13:03→22:25)
[2018-01-29] MEDS ORDERED: KCL (*) 20 MEQ/100 ML PREMIX 100 ML IV ONE ×2 (15:00→17:00)
[2018-01-29] MEDS: NS 0.45%(*) 1000 ML BAG 1,000 ML IV PRN (18:07)
[2018-01-29] MEDS: [UNRECOGNIZED DRUG - OTHER] IV SCH (21:16)
[2018-01-30] VITALS (48 sets, daily range): BP systolic 90–130; BP diastolic 43–84
[2018-01-30] MEDS: INSULIN HUM LISPRO 100 UN/ML 3 ML VIAL SUBQ PRN ×3 (00:10→12:16)
[2018-01-30] MEDS: NS 0.45%(*) 1000 ML BAG 1,000 ML IV PRN (00:13)
[2018-01-30] MEDS: PROPOFOL(*)1000 MG/100 ML VIAL 100 ML IV PRN ×3 (01:01→20:29)
[2018-01-30] MEDS: VANCOMYCIN(*) 1 GM VIAL 1 GM, VANCOMYCIN (*) 0.5 GM VIAL 0.25 GM in NS(*) 0.9% 250 ML B... IVPB SCH ×3 (03:34→18:48)
[2018-01-30 05:30] LABS: PLATELET COUNT, AUTOMATED 250 K/uL (150-450)
[2018-01-30] MEDS: MORPHINE 2 MG/ML SYR IVP PRN ×4 (06:47→23:09)
--- NOTE | 2018-01-30 07:36 | RADIOLOGY IMAGING REPORT ---
FACILITY: [facility] PATIENT NAME: Lucio Lloyd : 1985 MR: [id number] V: [id number] EXAM DATE: ORDERING PHYSICIAN: TIFFANY JACINTO TECHNOLOGIST: Location: Patient: Lucio Lloyd : 1985 Visit/Account:[id number] Date of Sevice: 01/30/2018 Portable chest: Indication: Respiratory insufficiency. Technique: A single frontal film was obtained. Comparison: 01/29/2018 Lines and tubes: Remain in satisfactory position. Skeletal and soft tissue structures: Intact and unremarkable. Heart and mediastinum: Stable. Lung collins: There are persistent diffuse parenchymal opacities. No new focal findings. No significan t change. Pleural spaces: No evidence of pneumothorax. Possible small effusions. Impression: No acute interval change. Report Dictated By: Benedict Cast MD at 01/30/2018 7:30 AM Report E-Signed By: Benedict Cast MD at 01/30/2018 7:32 AM WSN:[id number]
[2018-01-30] MEDS: PANTOPRAZOLE SOD 40 MG IV VIAL IVP SCH (09:06)
[2018-01-30] MEDS: ENOXAPARIN 40 MG/0.4ML SYR SC SCH (09:06)
[2018-01-30] MEDS: HYPROMELLOSE 0.4% LUB 15ML BTL OU PRN (09:06)
[2018-01-30] MEDS: TACROLIMUS 0.5 MG CAPSULE FT SCH ×2 (09:07→20:41)
[2018-01-30] MEDS: HYDROCORTISONE 100 MG/2 ML IVP SCH ×2 (09:07→20:42)
[2018-01-30] MEDS: ORAL SUCTION/CHLORHX/SWAB KIT MT SCH ×2 (09:08→20:42)
[2018-01-30] MEDS: ARTIFICIAL TEARS OINT 7 GM 7 GM TUBE OU SCH ×2 (09:08→20:42)
--- NOTE | 2018-01-30 09:09 | Hospitalist Progress Note ---
Subjective Progress Notes Subjective The patient remains intubated and sedated. He does move all 4 extremities per nursing staff when he becomes agitated or his sedation is decreased. Physical Exam Vital Signs Date Time Temp Pulse Resp B/P (MAP) Pulse Ox O2 Delivery O2 Flow Rate FiO2 01/30/18 08:39 96 Mechanical Ventilator 40.0 01/30/18 08:36 66 01/30/18 08:30 18 99/58 (72) 01/30/18 06:00 98.6 Intake and Output 01/31/18 07:00 Output Total 75 ml Balance -75 ml Output Urine Total 75 ml General Appearance: Other (Intubated and sedated.) Cardiovascular: Regular Rate and Rhythm Respiratory: Clear to Auscultation GI: Other (Slightly distended. Occasional bowel sounds. No rebound.) Extremities: Warm, Perfused, Other (No edema today.) Integumentary: Other (Ecchymotic areas over ankles and feet improving.) Psych: Other (Sedated.) Result Diagram: 01/30/18 0518 01/30/18 0518 Item Value Date Time Blood Gas Puncture Site Right radial 01/30/18 0520 Blood Gas Patient Temperature 98.0 DEGREES 01/30/18 0520 Arterial Blood pH 7.51 H 01/30/18 0520 Arterial Blood Partial Pressure CO2 35 mmHg 01/30/18 0520 Arterial Blood Partial Pressure O2 73 mmHg 01/30/18 0520 Arterial Blood HCO3 28 mmol/L H 01/30/18 0520 Arterial Blood Oxygen Saturation 96 % 01/30/18 0520 Arterial Blood Base Excess 4.0 mmol/L 01/30/18 0520 Emil Test Acceptable 01/30/18 0520 Oxygen Liters/Minute 40% 01/30/18 0520 Random Glucose 178 mg/dl H 01/30/18 0518 Calcium Level 7.8 mg/dl L 01/30/18 0518 Total Bilirubin 0.4 mg/dl 01/30/18 0518 Aspartate Amino Transf (AST/SGOT) 33 U/L 01/30/18 0518 Alanine Aminotransferase (ALT/SGPT) 58 U/L H 01/30/18 0518 Alkaline Phosphatase 128 U/L H 01/30/18 0518 Total Protein 4.9 gm/dl L 01/30/18 0518 Albumin 2.3 g/dl L 4/7/18 0518 Magnesium Level 1.8 mg/dl 01/30/18517 Imaging FACILITY: [facility] PATIENT NAME: Lucio Lloyd : 1985 MR: [id number] V: [id number] EXAM DATE: ORDERING PHYSICIAN: TIFFANY JACINTO TECHNOLOGIST: Location: [facility] Patient: Lucio Lloyd : 1985 Visit/Account:[id number] Date of Sevice: 01/30/2018 Portable chest: Indication: Respiratory insufficiency. Technique: A single frontal film was obtained. Comparison: 01/29/2018 Lines and tubes: Remain in satisfactory position. Skeletal and soft tissue structures: Intact and unremarkable. Heart and mediastinum: Stable. Lung collins: There are persistent diffuse parenchymal opacities. No new focal findings. No significant change. Pleural spaces: No evidence of pneumothorax. Possible small effusions. Impression: No acute interval change. Report Dictated By: Benedict Cast MD at 01/30/2018 7:30 AM Report E-Signed By: Benedict Cast MD at 01/30/2018 7:32 AM WSN:[id number] Monitor Interpretation: Normal Sinus Rhythm Assessment and Plan Problems: (1) Meningitis due to Streptococcus pneumoniae Assessment & Plan: Possible/suspected. On admission he complained of headache and neck stiffness. We were unable to obtain a lumbar puncture because of his elevated INR. We elected to treat him initially with Primaxin, vancomycin, and moxifloxacin (due to penicillin allergy). Blood cultures from this admission and his previous ER visit have shown pansensitive Streptococcus pneumoniae. We have narrowed his antibiotics to moxifloxacin and vancomycin. Plan at this time would be for 14 days of IV vancomycin and Avelox. He has been afebrile and WBC is coming down. (2) ARDS (adult respiratory distress syndrome) Status: Acute Assessment & Plan: He did develop increased work of breathing and O2 requirement. His chest x-ray has shown diffuse bilateral infiltrates consistent with ARDS. He was intubated and placed on mechanical ventilation on 01/24. His CXR continues to show improvements. His O2 requirement has remained fairly static at 40%. He is now tolerating a decrease in his PEEP. Will continue to wean this down today. (3) Acute respiratory failure Assessment & Plan: He is on mechanical ventilation. He is receiving propofol and versed for sedation. The tube feedings have been restarted. Will keep on 1/ 2 dose TPN for now. (4) Leukocytosis Status: Acute Assessment & Plan: He has had an elevated WBC fairly persistently back to 2015. However, this admission his WBC has been much higher. It is now trending down. The patient has a h/o ALL and is on Prograf and currently on IV steroids. Dr. Herron (Heme/Onc) requested a bone marrow biopsy, that was done 01/27. Results were negative for malignancy. (5) Hypokalemia Assessment & Plan: Secondary to IV Lasix. His potassium level is normal with supplements. (6) DIC (disseminated intravascular coagulation) Status: Resolved Assessment & Plan: It did appear that he developed DIC. He is not having any bleeding or clotting at this time. We elected not to place him prophylactic Lovenox initially because of the thrombocytopenia and the recent bone marrow biopsy. He has had SCDs in place. Today his platelets have improved and are over 150K. We did start Lovenox. (7) Septic shock Status: Acute Assessment & Plan: He did present with fever of 103F. His cultures are positive for S. pneumoniae. His lactate and WBC were elevated. He did require vasopressor support with norepinephrine and fluid resuscitation. He was also started on stress dose hydrocortisone. He has now weaned off vasopressor support, but steroids have been continued. (8) Acute renal failure Status: Resolved Assessment & Plan: Resolved with IV fluids. (9) Mkzlx-fmwlhv-myep disease Status: Chronic Assessment & Plan: He is on chronic treatment with tacrolimus. A level was in therapeutic range. He is back on tacrolimus now that the acute sepsis is improving. 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
[2018-01-30] MEDS: MOXIFLOX(*) 400MG/250ML PREMX 250 ML IVPB SCH (10:54)
--- NOTE | 2018-01-30 10:55 | Medical Nutrition Therapy ---
Nutrition Anthropometrics Height (Inches): 66.00 Height (Calculated Centimeters: 167.530320 Weight (Pounds): 156 Weight (Calculated Kilograms): 70.845 BMI Calculated: 24.53 Roly Nutrition Score: Probably Inadequate Roly Nutrition Risk Score: 13 Dietary Referral Nutrition Risk Factors: Nutrition Risk Comment: Physical Findings Physical Appearance: BMI 26-wt up due to IVF Skin Appearance Skin Appearance: Edema Edema Location Modifier: Both Edema Location: Foot Type of Edema: Degree of Edema: 1+ Gastrointestinal Symptoms GI Symtoms: Tube Present: OG Bowel Sounds: Recent Bowel Pattern: Stool Characteristics: Nutrition/Food History No Significant Nutr. 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 Support, Inablility to Feed Self Nutrition Etiology: Physiological Causes Nutrition Problem/Etiology/Sym: Inability to feed self/inadequate kcal from nutritional support r/t sedated and on mech vent AEB enteral nutrtion meeting 92% est kcal and 106% est nutr needs. Adjusted Energy Requirement Re: 2245 ([facility] RMR (1855) X 1.1 AF X1.1 SF) Protein Requirement: 71 (1.1gm/kg) Fluid Requirement: 2170 (35 ml/kg) Diet Type: NPO (Nothing by Mouth), TPN/PPN, Tube Feeding (TF) Nutrition Intervention: Nutrition support, Incr diet as tolerated Nutritional Support Current Enteral / Parental: TPN Tube Feeding Formulas: Jevity 1cal/ml-Standard Current Tube Feeding Formula C: Jevity @30 mL/hr, Clinimix 4.25/25 @ 42mL/hr Tube Feeding Supplement Streng: Full Feeding Route: FT Placed Oralgastric Current Duration: 24 Current Calories: 1791 (based on final rate of 70ml/hr) Current Protein: 75 (based on final rate ) Nutrition Monitoring & Eval Nutrition Goals: Eat 75-100% Meal RD Patient Assessment Time: [address] Assessment Type: RD Re-Assessment Patient Nutrition Acuity: 1-High Follow Up Date: Jan 31, 2018 Nutritional Comment: 01/22 Pt admitted with septic shock and ARF. Pt on regular diet and ate a small amount of first meal in facility. Pt reporteing N/V which may be affecting intake. Alb 3.5, WBC 25.7, Hct 136.8, Hbg 12.7. Will cont to monitor and encourage intake. 01/23 Intake very low likely due to N/V. Will offer nutr suppl if intake is less than 50%. Wt is up 24# since admit due to IVF. Notable labs include low H/H, BUN 29, Mg 1.6, elevated liver enz, tot pro 5.3 and alb 2.6. Will cont to monitor and encourage intake. 01/26 Pt placed on mech vent and TF. Est needs recalculated using [facility] formulary r/t mech vent. Pt recieving jevity 1 with final rate of 70 ml/hr plus propofol at 25.2mls/hr. TF+ propofol meeting 106% est kcal and protein needs. Fluid needs should be met with TF and IV fluids. Will cont to monitor. 01/28 TF stopped for high residuals then resumed. Cont to slowly increase by 5ml q 6 hrs final rate of 70ml/hr with 20ml water X 6. Nursing reported tolerating well last assessment. Propofol has declined to 12.6mls/hr. With decreased propofol, TF is meeting 93% est kcal needs and 106% est protein needs. Pt may benefit from a final rate of 75ml/hr to provide 2210kcal with current rate of propofol and meet kcal needs. Alb cont low at 2.2. Wt is up 7# since admit. 01/30 Glu 160, Alb 2.3, High Alk Phos/ALT. TPN Clinimix 4.25%-25% at 42mL/hr and Tube feeding Jevity @ 30mL/hr. Pt also receiving varying amounts of propofol for sedation. At current rate of TPN and tube feeding, pt receiving 1791 Kcal and 75 grams protein per 24 hrs. This provides 80% of estimated Kcal needs and 106% of estimated protein needs. Current hyperglycemia d/t TPN and steroids. Monitor labs, clinical progression, tolerance to tube feeding. LIN CABEZAS Jan 30, 2018 10:55
[2018-01-30] MEDS: MIDAZOLAM 50 MG/10 ML 1ML VIAL 100 MG in NS(*) 0.9% 100 ML BAG 80 ML IV PRN (15:28)
[2018-01-30] MEDS: [UNRECOGNIZED DRUG - OTHER] IV SCH (22:16)
[2018-01-31] VITALS (45 sets, daily range): BP systolic 94–155; BP diastolic 49–100
[2018-01-31] MEDS: INSULIN HUM LISPRO 100 UN/ML 3 ML VIAL SUBQ PRN ×2 (00:05→06:25)
[2018-01-31] MEDS: PROPOFOL(*)1000 MG/100 ML VIAL 100 ML IV PRN ×2 (01:20→05:10)
[2018-01-31] MEDS: VANCOMYCIN(*) 1 GM VIAL 1 GM, VANCOMYCIN (*) 0.5 GM VIAL 0.25 GM in NS(*) 0.9% 250 ML B... IVPB SCH ×3 (02:40→19:28)
[2018-01-31] MEDS: MORPHINE 2 MG/ML SYR IVP PRN ×2 (04:28→16:25)
[2018-01-31] MEDS: NS 0.45%(*) 1000 ML BAG 1,000 ML IV PRN ×2 (05:10→23:22)
[2018-01-31 05:39] LABS: PLATELET COUNT, AUTOMATED 281 K/uL (150-450)
--- NOTE | 2018-01-31 06:31 | RADIOLOGY IMAGING REPORT ---
FACILITY: [facility] PATIENT NAME: Lucio Lloyd : 1985 MR: [id number] V: [id number] EXAM DATE: ORDERING PHYSICIAN: ORAL JACINTO TECHNOLOGIST: Location: [facility] - [place] Patient: Lucio Lloyd : 1985 Visit/Account:[id number] Date of Sevice: 01/31/2018 Portable chest: Indication: Respiratory insufficiency. Technique: A single frontal film was obtained. Comparison: 01/30/2018 Lines and tubes: Remain in satisfactory position. Skeletal and soft tissue structures: Intact and unchanged. Heart and mediastinum: Stable. Lung collins: Diffuse parenchymal opacities persist. Pleural spaces: The right effusion is slightly increased. There is no evidence of pneumothorax. Impression: Increased right pleural effusion. Otherwise, no significant change. Report Dictated By: Benedict Cast MD at 01/31/2018 6:25 AM Report E-Signed By: Benedict Cast MD at 01/31/2018 6:26 AM WSN:[id number]
[2018-01-31] MEDS ORDERED: FUROSEMIDE 40 MG/4 ML VIAL IVP ONE (08:00)
[2018-01-31] MEDS: KCL (*) 20 MEQ/100 ML PREMIX 100 ML IV SCH ×2 (08:14→10:26)
[2018-01-31] MEDS: PANTOPRAZOLE SOD 40 MG IV VIAL IVP SCH (08:42)
[2018-01-31] MEDS: ENOXAPARIN 40 MG/0.4ML SYR SC SCH (08:46)
[2018-01-31] MEDS: ORAL SUCTION/CHLORHX/SWAB KIT MT SCH (08:47)
[2018-01-31] MEDS: HYDROCORTISONE 100 MG/2 ML IVP SCH ×2 (08:56→20:33)
[2018-01-31] MEDS: TACROLIMUS 0.5 MG CAPSULE FT SCH ×2 (08:57→20:33)
[2018-01-31] MEDS: ARTIFICIAL TEARS OINT 7 GM 7 GM TUBE OU SCH ×3 (08:58→20:55)
--- NOTE | 2018-01-31 10:11 | Hospitalist Progress Note ---
Subjective Progress Notes Subjective This patient was admitted for meningitis. He had no acute events overnight. Patient Complains of: Cardiovascular: No: Chest Pain Respiratory: No: Shortness of Breath Physical Exam Vital Signs Date Time Temp Pulse Resp B/P (MAP) Pulse Ox O2 Delivery O2 Flow Rate FiO2 01/31/18 10:00 98 01/31/18 09:55 40.0 01/31/18 08:08 31 01/31/18 07:35 95 Mechanical Ventilator 01/31/18 06:30 103/57 (72) 01/31/18 04:00 97.2 Intake and Output 02/01/18 07:00 Intake Total 60 ml Output Total 1200 ml Balance -1140 ml Tube Irrigant 60 ml Output Urine Total 1200 ml Neuro: No Gross deficits (Sedated to RASS -1.) Eyes: PERRLA Cardiovascular: Regular Rate and Rhythm Respiratory: Other (Bilateral breath sounds present.) GI: Soft and Non-Tender Extremities: No Edema Integumentary: No Cyanosis Result Diagram: 01/31/1851701/31/18517 Item Value Date Time Arterial Blood pH 7.47 H 01/31/18517 Arterial Blood Partial Pressure CO2 36 mmHg 01/31/18517 Arterial Blood Partial Pressure O2 56 mmHg L 01/31/18517 Arterial Blood HCO3 26 mmol/L 01/31/18517 Arterial Blood Oxygen Saturation 91 % L 01/31/18517 Imaging Chest x-ray reviewed. Monitor Interpretation: Normal Sinus Rhythm Assessment and Plan Problems: (1) Meningitis due to Streptococcus pneumoniae Assessment & Plan: On admission he complained of headache and neck stiffness. We were unable to obtain a lumbar puncture because of his elevated INR. We elected to treat him initially with Primaxin, vancomycin, and moxifloxacin (due to penicillin allergy). Blood cultures from this admission and his previous ER visit have shown pansensitive Streptococcus pneumoniae. We have narrowed his antibiotics to moxifloxacin and vancomycin. We are currently planning for a total for 14 days of IV vancomycin and Avelox. (2) ARDS (adult respiratory distress syndrome) Status: Acute Assessment & Plan: He did develop increased work of breathing and O2 requirement. His chest x-ray has shown diffuse bilateral infiltrates consistent with ARDS. He was intubated and placed on mechanical ventilation on 01/24. (3) Acute respiratory failure Assessment & Plan: He is on mechanical ventilation. We will plan to extubate today. (4) Leukocytosis Status: Acute Assessment & Plan: He has had an elevated WBC fairly persistently back to 2015. However, this admission his WBC has been much higher. The patient has a h /o ALL and is on Prograf and currently on IV steroids. Dr. Herron (Heme/ Onc) requested a bone marrow biopsy, that was done 01/27. Results were negative for malignancy. We will wean his steroids again today. (5) Hypokalemia Assessment & Plan: He is scheduled to receive a K-ridder today. (6) DIC (disseminated intravascular coagulation) Status: Resolved Assessment & Plan: It did appear that he developed DIC. He is not having any bleeding or clotting at this time. We elected not to place him prophylactic Lovenox. He has had SCDs in place. (7) Septic shock Status: Acute Assessment & Plan: He did present with fever of 103F. His cultures are positive for S. pneumoniae. His lactate and WBC were elevated. He did require vasopressor support with norepinephrine and fluid resuscitation. He was also started on stress dose hydrocortisone. He has now weaned off vasopressor support. His steroids will be weaned as above. (8) Acute renal failure Status: Resolved Assessment & Plan: Resolved with IV fluids. (9) Rycwo-tszyyt-phss disease Status: Chronic Assessment & Plan: He is on chronic treatment with tacrolimus. A level was in therapeutic range. He is back on tacrolimus now that the acute sepsis is improving. 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
[2018-01-31] MEDS: MOXIFLOX(*) 400MG/250ML PREMX 250 ML IVPB SCH (10:24)
--- NOTE | 2018-01-31 12:12 | Medical Nutrition Therapy ---
Nutrition Anthropometrics Height (Inches): 66.00 Height (Calculated Centimeters: 167.313096 Weight (Pounds): 156 Weight (Calculated Kilograms): 70.845 BMI Calculated: 24.53 Roly Nutrition Score: Probably Inadequate Roly Nutrition Risk Score: 14 Dietary Referral Nutrition Risk Factors: Nutrition Risk Comment: Physical Findings Physical Appearance: BMI 26-wt up due to IVF Skin Appearance Skin Appearance: Edema Edema Location Modifier: Both Edema Location: Foot Type of Edema: Degree of Edema: 1+ Gastrointestinal Symptoms GI Symtoms: Tube Present: OG Bowel Sounds: Recent Bowel Pattern: Stool Characteristics: Nutrition/Food History No Significant Nutr. 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 Support, Inablility to Feed Self Nutrition Etiology: Physiological Causes Nutrition Problem/Etiology/Sym: Inability to feed self/inadequate kcal from nutritional support r/t sedated and on mech vent AEB enteral nutrtion meeting 92% est kcal and 106% est nutr needs. Adjusted Energy Requirement Re: 2245 ([facility] RMR (1855) X 1.1 AF X1.1 SF) Protein Requirement: 71 (1.1gm/kg) Fluid Requirement: 2170 (35 ml/kg) Diet Type: NPO (Nothing by Mouth), TPN/PPN, Tube Feeding (TF) Nutrition Intervention: Nutrition support, Incr diet as tolerated Nutritional Support Current Enteral / Parental: TPN Tube Feeding Formulas: Jevity 1cal/ml-Standard Current Tube Feeding Formula C: Jevity @40 mL/hr, Clinimix 4.25/25 @ 42mL/hr Tube Feeding Supplement Streng: Full Feeding Route: FT Placed Oralgastric Current Duration: 24 Current Calories: 2046 (based on final rate of 70ml/hr) Current Protein: 86 (based on final rate ) Nutrition Monitoring & Eval RD Patient Assessment Time: [address] Assessment Type: RD Re-Assessment Patient Nutrition Acuity: 1-High Follow Up Date: Feb 01, 2018 Nutritional Comment: 01/22 Pt admitted with septic shock and ARF. Pt on regular diet and ate a small amount of first meal in facility. Pt reporteing N/V which may be affecting intake. Alb 3.5, WBC 25.7, Hct 136.8, Hbg 12.7. Will cont to monitor and encourage intake. 01/23 Intake very low likely due to N/V. Will offer nutr suppl if intake is less than 50%. Wt is up 24# since admit due to IVF. Notable labs include low H/H, BUN 29, Mg 1.6, elevated liver enz, tot pro 5.3 and alb 2.6. Will cont to monitor and encourage intake. 01/26 Pt placed on mech vent and TF. Est needs recalculated using [facility] formulary r/t mech vent. Pt recieving jevity 1 with final rate of 70 ml/hr plus propofol at 25.2mls/hr. TF+ propofol meeting 106% est kcal and protein needs. Fluid needs should be met with TF and IV fluids. Will cont to monitor. 01/28 TF stopped for high residuals then resumed. Cont to slowly increase by 5ml q 6 hrs final rate of 70ml/hr with 20ml water X 6. Nursing reported tolerating well last assessment. Propofol has declined to 12.6mls/hr. With decreased propofol, TF is meeting 93% est kcal needs and 106% est protein needs. Pt may benefit from a final rate of 75ml/hr to provide 2210kcal with current rate of propofol and meet kcal needs. Alb cont low at 2.2. Wt is up 7# since admit. 01/30 Glu 160, Alb 2.3, High Alk Phos/ALT. TPN Clinimix 4.25%-25% at 42mL/hr and Tube feeding Jevity @ 30mL/hr. Pt also receiving varying amounts of propofol for sedation. At current rate of TPN and tube feeding, pt receiving 1791 Kcal and 75 grams protein per 24 hrs. This provides 80% of estimated Kcal needs and 106% of estimated protein needs. Current hyperglycemia d/t TPN and steroids. Monitor labs, clinical progression, tolerance to tube feeding. 01/31 Glu 193, Alb 2.2, High Alk Phos/ALT. TPN Clinimix 4.25%-25% at 42mL/hr contines and increased Tube feeding Jevity @ 40mL/hr. Pt also receiving varying amounts of propofol for sedation which contributes 1.1 kcals/mL as fat. At current rate of TPN and tube feeding, pt receiving 2046 Kcal and 86 grams protein per 24 hrs. This provides 91% of estimated Kcal needs and 121% of estimated protein needs. Monitor labs, clinical progression, tolerance to tube feeding. LIN CABEZAS Jan 31, 2018 12:12
[2018-01-31] MEDS: ACETAMINOPHEN(*)1000 MG/100 ML 100 ML IVPB PRN ×2 (12:51→20:33)
[2018-01-31] MEDS: ONDANSETRON 4 MG/2 ML VIAL IVP PRN (21:09)
[2018-01-31] MEDS: HYDROmorphone HCL 2 MG/ML SDV IVP PRN ×2 (21:16→21:54)
[2018-01-31] MEDS: [UNRECOGNIZED DRUG - OTHER] IV SCH (22:52)
[2018-02-01] VITALS (24 sets, daily range): BP systolic 117–169; BP diastolic 69–113
[2018-02-01] MEDS: INSULIN HUM LISPRO 100 UN/ML 3 ML VIAL SUBQ PRN (00:32)
[2018-02-01] MEDS: VANCOMYCIN(*) 1 GM VIAL 1 GM, VANCOMYCIN (*) 0.5 GM VIAL 0.25 GM in NS(*) 0.9% 250 ML B... IVPB SCH ×3 (03:11→19:35)
[2018-02-01] MEDS: ACETAMINOPHEN(*)1000 MG/100 ML 100 ML IVPB PRN (04:21)
[2018-02-01] MEDS: ONDANSETRON 4 MG/2 ML VIAL IVP PRN (04:30)
[2018-02-01 05:26] LABS: PLATELET COUNT, AUTOMATED 324 K/uL (150-450)
[2018-02-01] MEDS: MORPHINE 2 MG/ML SYR IVP PRN ×2 (06:28→11:33)
[2018-02-01] MEDS ORDERED: KETOROLAC 30 MG/ML VIAL IVP PRN (07:55)
[2018-02-01] MEDS ORDERED: KCL (*) 20 MEQ/100 ML PREMIX 100 ML IV ONE ×2 (08:15→11:30)
[2018-02-01] MEDS: HYDROCORTISONE 100 MG/2 ML IVP SCH ×2 (08:28→20:47)
[2018-02-01] MEDS: PANTOPRAZOLE SOD 40 MG IV VIAL IVP SCH (08:32)
[2018-02-01] MEDS: ENOXAPARIN 40 MG/0.4ML SYR SC SCH (08:34)
[2018-02-01] MEDS: ARTIFICIAL TEARS OINT 7 GM 7 GM TUBE OU SCH ×2 (08:36→20:48)
[2018-02-01] MEDS: HYPROMELLOSE 0.4% LUB 15ML BTL OU PRN (08:36)
[2018-02-01] MEDS: TACROLIMUS 0.5 MG CAPSULE FT SCH ×2 (08:37→20:48)
--- NOTE | 2018-02-01 08:39 | RADIOLOGY IMAGING REPORT ---
FACILITY: [facility] PATIENT NAME: Lucio Lloyd : 1985 MR: [id number] V: [id number] EXAM DATE: ORDERING PHYSICIAN: ORAL JACINTO TECHNOLOGIST: Location: [facility] Patient: Lucio Lloyd : 1985 Visit/Account:[id number] Date of Sevice: 02/01/2018 CHEST SINGLE AP History: Tachypnea Comparison 01/31/2018. FINDINGS: NG and endotracheal tubes have been removed. Central line unchanged. Increasing upper lobe consolidat ions. Right pleural effusion not significantly changed. Other areas of infiltrate appear relatively s table. No pneumothorax. Heart size within normal limits. IMPRESSION: Increasing consolidations in the upper lobes, otherwise stable. Report Dictated By: George Grace MD at 02/01/2018 8:35 AM Report E-Signed By: George Grace MD at 02/01/2018 8:36 AM WSN:[id number]
[2018-02-01] MEDS: MOXIFLOX(*) 400MG/250ML PREMX 250 ML IVPB SCH (10:00)
--- NOTE | 2018-02-01 10:05 | Medical Nutrition Therapy ---
Nutrition Anthropometrics Height (Inches): 66.00 Height (Calculated Centimeters: 167.091986 Weight (Pounds): 161 Weight (Calculated Kilograms): 73.028 BMI Calculated: 24.53 Roly Nutrition Score: Probably Inadequate Roly Nutrition Risk Score: 14 Dietary Referral Nutrition Risk Factors: Nutrition Risk Comment: Physical Findings Physical Appearance: BMI 26-wt up due to IVF Skin Appearance Skin Appearance: Edema Edema Location Modifier: Both Edema Location: Foot Type of Edema: Degree of Edema: 1+ Gastrointestinal Symptoms GI Symtoms: Nausea Tube Present: OG Bowel Sounds: Recent Bowel Pattern: Stool Characteristics: Nutritional Diagnosis Nutritional Risk Acuity 1: TPN/PPN Nutritional Risk Acuity 2: Sepsis Past Medical History: leukemia, 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 Support, Increased Nutrient Needs Nutrition Etiology: Physiological Causes Nutrition Problem/Etiology/Sym: Inadequate kcal from nutrition support r/t discontinued tube feed with TPN Clinimix 4.25%-25% at 42mL/hr x 24 hrs meeting 44% of estimated kcal need and 61% of estimated protein need. Adjusted Energy Requirement Re: 2330 ([facility] RMR (1618) X 1.2 AF X1.2 SF) Protein Requirement: 71 (1.1gm/kg) Fluid Requirement: 2170 (35 ml/kg) Diet Type: NPO (Nothing by Mouth), TPN/PPN Nutrition Intervention: Nutrition support, Incr diet as tolerated Nutritional Support Current Enteral / Parental: TPN Current Tube Feeding Formula C: Clinimix 4.25/25 @ 42mL/hr Tube Feeding Supplement Streng: Full Current Duration: 24 Current Calories: 1031 (based on final rate of 70ml/hr) Current Protein: 43 (based on final rate ) Tube Feeding Supplement Streng: Full Nutrition Monitoring & Eval Nutrition Goals: Eat 75-100% Meal Nutrition Monitoring: Monitor oral intake to meet 75 - 100% of estimated need. RD Patient Assessment Time: [address] Assessment Type: RD Re-Assessment Patient Nutrition Acuity: 1-High Follow Up Date: Feb 02, 2018 Nutritional Comment: 01/22 Pt admitted with septic shock and ARF. Pt on regular diet and ate a small amount of first meal in facility. Pt reporteing N/V which may be affecting intake. Alb 3.5, WBC 25.7, Hct 136.8, Hbg 12.7. Will continue to monitor and encourage intake. 01/23 Intake very low likely due to N/V. Will offer nutr suppl if intake is less than 50%. Wt is up 24# since admit due to IVF. Notable labs include low H/H, BUN 29, Mg 1.6, elevated liver enz, tot pro 5.3 and alb 2.6. Will cont to monitor and encourage intake. 01/26 Pt placed on mech vent and TF. Est needs recalculated using [facility] formulary r/t mech vent. Pt recieving jevity 1 with final rate of 70 ml/hr plus propofol at 25.2mls/hr. TF+ propofol meeting 106% est kcal and protein needs. Fluid needs should be met with TF and IV fluids. Will cont to monitor. 01/28 TF stopped for high residuals then resumed. Cont to slowly increase by 5ml q 6 hrs final rate of 70ml/hr with 20ml water X 6. Nursing reported tolerating well last assessment. Propofol has declined to 12.6mls/hr. With decreased propofol, TF is meeting 93% est kcal needs and 106% est protein needs. Pt may benefit from a final rate of 75ml/hr to provide 2210kcal with current rate of propofol and meet kcal needs. Alb cont low at 2.2. Wt is up 7# since admit. 01/30 Glu 160, Alb 2.3, High Alk Phos/ALT. TPN Clinimix 4.25%-25% at 42mL/hr and Tube feeding Jevity @ 30mL/hr. Pt also receiving varying amounts of propofol for sedation. At current rate of TPN and tube feeding, pt receiving 1791 Kcal and 75 grams protein per 24 hrs. This provides 80% of estimated Kcal needs and 106% of estimated protein needs. Current hyperglycemia d/t TPN and steroids. Monitor labs, clinical progression, tolerance to tube feeding. 01/31 Glu 193, Alb 2.2, High Alk Phos/ALT. TPN Clinimix 4.25%-25% at 42mL/hr contines and increased Tube feeding Jevity @ 40mL/hr. Pt also receiving varying amounts of propofol for sedation which contributes 1.1 kcals/mL as fat. At current rate of TPN and tube feeding, pt receiving 2046 Kcal and 86 grams protein per 24 hrs. This provides 91% of estimated Kcal needs and 121% of estimated protein needs. Monitor labs, clinical progression, tolerance to tube feeding. 02/01 Recommend advance to Regular diet. Continue TPN until oral intake meets 75-100% of estimated needs. Tube Feed and Propofol discontinued. TPN Clinimix 4.25%-25% at 42mL/hr is curently providing 1031 kcal and 43 grams protein per 24 hrs meeting 44% of estimated kcal need and 61% of estimated protein need. Monitor labs, clinical progression, diet advancement and tolerance. LEA OSHEA Feb 01, 2018 09:40
--- NOTE | 2018-02-01 11:02 | SLP BEDSIDE SWALLOW EVALUATION ---
SPEECH THERAPY ASSESSMENT Physician: Drew Shoemaker DO Clinician: Azra Samuel MS, CCC-[employer]SEM[employer] Type of Assessment: Dysphagia Evaluation Patient: Lucio Lloyd : 1985, 32yrs Evaluation Date: 02/01/2018 BACKGROUND The patient is a 32year old male admitted to [facility] following ER visit w/ complaints of headache, neck stiffness, and fever. Patient w/ suspected meningitis 2/2 streptococcus pneumonia. Hospitalization course was complicated by acute respiratory failure w/ CXR illustrating diffuse bilateral infiltrates consistent w/ ARDS. Patient was intubated and placed on mechanical ventilation on 01/24, extubated on 01/31. 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 An ST swallow evaluation was ordered to further evaluate swallow structure and function and make appropriate diet advancement recommendations following recent extubation. Primary Medical Diagnosis: meningitis due to streptococcus pneumoniae Pain Scale (0-10): Patient w/ no reports of pain. LOC / Participation: alert, cooperative, highly anxious, limited verbalizations /vocalizations. Follows instructions: yes Orientation: DNT. Functional Communication Deficits impact swallow function/safety, or response to therapy: Yes. Patient demonstrated significant difficulty communicating 2/2 evident anxiety related to breathing difficulties. Patient was willing to participate and able to follow instructions throughout all assessment procedures. Responses were indicated via head nod and/or shake. Patient vocalized and verbalized 1-2 word phrases when prompted in order to appropriately analyze voice quality. VOICE Vocal Deficits: Mild hoarseness likely 2/2 recent extubation. WFL. COGNITION/COMMUNICATION Formal cognitive communicative assessment not administered. Patient w/ significant anxiety and strong desire to focus on breathing vs speaking. Majority of information was gathered via family members. Patient willing to respond to yes/no questions via head nod/shake. Patient also willing to vocalize and verbalize 1-2 word phrases when prompted in order to appropriately analyze voice quality. DYSPHAGIA Sialorrhea: No Xerostomia: Yes Supplemental Oxygen Use: Yes. Oxy Mask, 6.0 L Oxygen Saturation: 89-90%. Remains stable across entirety of PO trials. Respiratory Rate: Remains stable throughout food/liquid trials COPD Dx: No Pain with Swallow: Denies Oral Structure and Function: Oromotor exam was remarkable for edentulism. Patient w/ dentures, although not currently in place 2/2 recent extubation and reliance on NG tube for primary source of nutrition/hydration. Oromotor exam also remarkable for generalized weakness and reduced ROM of all oral musculature. Pharyngeally, patient able to elicit strong protective cough. Hyolaryngeal elevation and excursion mildly reduced to palpation, consistent w/ generalized weakness. Administered PO trials of thin liquids via straw, pureed solids, and [facility] soft solids. Pt only willing to consume very small, tsp amounts of puree and soft solids. Per SO report, this behavior is typical 2/2 impact of graft vs host disease on swallow function. Oral phase was characterized by difficulty ceasing oral breathing to appropriately initiate a-p transit w/ puree and to appropriately initiate mastication w/ soft solids. Following initiation of mastication, pt w/ delayed bolus formation and delayed a-p transit. All material was cleared from oral cavity w/ out significant residue. Patient also w / delayed pharyngeal swallow onset; however, all PO trials were successfully tolerated w/ out overt s/sx of aspiration (including successive sips of thin liquids via straw). Respiratory/Swallow Coordination: Poor coordination. Oral breathing during bolus preparation. Difficulty ceasing breathing pattern to initiate pharyngeal swallow. Difficulties appeared to be exacerbated by high levels of anxiety and strong desire to focus on breathing vs communicating, swallowing, etc. ST ASSESSMENT SUMMARY DYSPHAGIA Recommend Advance diet to Dysphagia 2, regular/thin liquids. Straws OK. Aspiration Risk: Aspiration Risk: Increased 2nd to generalized weakness, oral phase dysphagia, graft vs host disease, compromised respiratory status. Speech Therapy Need ST will continue to analyze oropharyngeal swallow status and make appropriate diet advancement recommendations. ST will also continue to provide educational information re: compensatory strategies to minimize risk for aspiration pneumonia and promote safe, efficient tolerance of least restrictive diet. RECOMMENDATIONS 1. Diet Modification: Dysphagia 2, thin liquids. Will reassess in 24 hours. 2. Compensatory Techniques: regular oral hygiene following meals, upright positioning during PO intake, small bites/small sips, provide ample time to participate in meals, encourage rest breaks for respiration. 3 Pills: crushed, immersed in puree. 4. Supervision with meals/snacks: Yes to assist with self-feed and to implement compensatory techniques. 5. Further cognitive communicative assessment as appropriate. PLAN OF CARE Short Term Goals 1. Patient will receive education regarding safe swallow precautions, diet modification recommendations, and compensatory techniques and will provide verbal/visual demonstration of comprehension. 2. The patient will participate in food/liquid trials with ST to advance diet as indicated for safe oral intake. Long-Term Goals 1. The patient will safely and efficiently tolerate regular diet and thin liquids with independent implementation of safe swallow strategies and minimized s/s of dysphagia. Rehabilitation Prognosis: Good. Motivated by PO intake. Strong family support. Thank you for this referral. Azra Samuel M.S., [facility]-[employer]SEM[employer]ER Speech Therapist Physician Signature Date [*] MTDD
[2018-02-01] MEDS: LORazepam 2 MG/ML VIAL IVP PRN ×2 (11:12→20:51)
[2018-02-01] MEDS ORDERED: FUROSEMIDE 40 MG/4 ML VIAL IVP ONE (12:50)
--- NOTE | 2018-02-01 13:22 | Hospitalist Progress Note ---
Subjective Progress Notes Subjective The patient is a bit anxious per nursing staff. His respiratory rate is up a bit today and his O2 requirements have increased. He denies any pain. When asked if he was short of breath he shrugged his shoulders. Physical Exam Vital Signs Date Time Temp Pulse Resp B/P (MAP) Pulse Ox O2 Delivery O2 Flow Rate FiO2 02/01/18 10:00 97.8 112 36 160/100 (120) 87 Oxy Mask 8.0 01/31/18 12:30 General Appearance: Alert, Awake, Other (Appears anxious.) Neuro: No Gross deficits Eyes: PERRLA Cardiovascular: Other (Tachy, regular.) Respiratory: Other (Mild respiratory distress.) GI: Soft and Non-Tender Extremities: Warm, Perfused Integumentary: Other (The ecchymosis is improved. Still scattered blisters.) Psych: Other (Anxious.) Result Diagram: 02/01/18 0508 02/01/18 0508 Monitor Interpretation: Normal Sinus Rhythm Assessment and Plan Problems: (1) Meningitis due to Streptococcus pneumoniae Assessment & Plan: On admission he complained of headache and neck stiffness. We were unable to obtain a lumbar puncture because of his elevated INR. We elected to treat him initially with Primaxin, vancomycin, and moxifloxacin (due to penicillin allergy). Blood cultures from this admission and his previous ER visit have shown pansensitive Streptococcus pneumoniae. We narrowed his antibiotics to moxifloxacin and vancomycin and were planning for a total for 14 days of IV vancomycin and Avelox. Today his WBC has increased and his CXR shows worsening infiltrates. Will add back Primaxin to cover for Pseudomonas. (2) Pulmonary infiltrates on CXR Status: Acute Assessment & Plan: The patient has developed worsening upper lobe infiltrates on CXR. Will add Primaxin to cover Pseudomonas. Will place on BiPAP and give a dose of Lasix as well. (3) ARDS (adult respiratory distress syndrome) Status: Acute Assessment & Plan: He did develop increased work of breathing and O2 requirement. His chest x-ray has shown diffuse bilateral infiltrates consistent with ARDS. He was intubated and placed on mechanical ventilation on 01/24. He was extubated on 01/31 and did fairly well until this morning when his respiratory rate increased and his CXR is showing increased upper lobe infiltrates. Will add back Primaxin, place on BiPAP and give a dose of Lasix to try and avoid reintubation. (4) Acute respiratory failure Assessment & Plan: He was on mechanical ventilation and was extubated 01/31. His respiratory status has deteriorated today, see above. (5) Leukocytosis Status: Acute Assessment & Plan: He has had an elevated WBC fairly persistently back to 2014. However, this admission his WBC has been much higher. The patient has a h /o ALL and is on Prograf and currently on IV steroids. Dr. Herron (Heme/ Onc) requested a bone marrow biopsy, that was done 01/27. Results were negative for malignancy. We will wean his steroids again today. (6) Hypokalemia Assessment & Plan: He is scheduled to receive a K-ridder today. (7) DIC (disseminated intravascular coagulation) Status: Resolved Assessment & Plan: It did appear that he developed DIC. He is not having any bleeding or clotting at this time. We elected not to place him prophylactic Lovenox. He has had SCDs in place. (8) Septic shock Status: Acute Assessment & Plan: He did present with fever of 103F. His cultures are positive for S. pneumoniae. His lactate and WBC were elevated. He did require vasopressor support with norepinephrine and fluid resuscitation. He was also started on stress dose hydrocortisone. He has now weaned off vasopressor support. His steroids will be weaned as above. (9) Acute renal failure Status: Resolved Assessment & Plan: Resolved with IV fluids. (10) [id number]-[id number] disease Status: Chronic Assessment & Plan: He is on chronic treatment with tacrolimus. A level was in therapeutic range. He is back on tacrolimus now that the acute sepsis is improving. 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 Time Spent on Plan of Care: < 30 min Exam Sepsis Risk: Sepsis Risk ORAL JACINTO MD Feb 01, 2018 13:22
[2018-02-01] MEDS: IMIPENEM/CILASTA(*) 500MG VIAL 500 MG in NS(*) 0.9% 100 ML BAG 100 ML IVPB SCH ×2 (14:22→20:47)
[2018-02-01] MEDS: LEVALBUTEROL 0.63 MG/3 ML NEB NEB SCH (20:33)
[2018-02-01] MEDS: [UNRECOGNIZED DRUG - OTHER] IV SCH (20:48)
[2018-02-01] MEDS: HYDROmorphone HCL 2 MG/ML SDV IVP PRN (20:50)
[2018-02-02] VITALS (24 sets, daily range): BP systolic 129–172; BP diastolic 75–106
[2018-02-02] MEDS: HYDROmorphone HCL 2 MG/ML SDV IVP PRN ×2 (01:30→23:15)
[2018-02-02] MEDS: IMIPENEM/CILASTA(*) 500MG VIAL 500 MG in NS(*) 0.9% 100 ML BAG 100 ML IVPB SCH ×4 (01:34→19:28)
[2018-02-02] MEDS: VANCOMYCIN(*) 1 GM VIAL 1 GM, VANCOMYCIN (*) 0.5 GM VIAL 0.25 GM in NS(*) 0.9% 250 ML B... IVPB SCH ×3 (03:00→19:14)
[2018-02-02 05:36] LABS: PLATELET COUNT, AUTOMATED 388 K/uL (150-450)
[2018-02-02] MEDS: LEVALBUTEROL 0.63 MG/3 ML NEB NEB SCH ×5 (06:08→20:13)
[2018-02-02] MEDS: INSULIN HUM LISPRO 100 UN/ML 3 ML VIAL SUBQ PRN ×2 (06:42→11:35)
[2018-02-02] MEDS ORDERED: FUROSEMIDE 40 MG/4 ML VIAL IVP ONE (08:20)
--- NOTE | 2018-02-02 08:21 | RADIOLOGY IMAGING REPORT ---
FACILITY: [facility] [place] PATIENT NAME: Lucio Lloyd : 1985 MR: [id number] V: [id number] EXAM DATE: ORDERING PHYSICIAN: TIFFANY JACINTO TECHNOLOGIST: Location: [facility] Patient: Lucio Lloyd : 1985 Visit/Account:[id number] Date of Sevice: 02/02/2018 Exam type: CHEST SINGLE AP History: Pneumonia/ARDS Comparison: February 01, 2018. Findings: The right IJ catheter remains unchanged. EKG lines and tubing project over the thorax. There has be en further increase in the extensive airspace consolidation throughout the lungs. There is no demons tration of pneumothorax. Hazy density over the right pulmonary apex slightly increased and may repre sent layering pleural fluid. Cardiac silhouette remains stable IMPRESSION: 1. Further increase in patchy airspace consolidation throughout the lungs Hazy density over the right pulmonary apex slightly increased and may represent layering right pleura l effusion. Report Dictated By: Christy Salguero MD at 02/02/2018 8:14 AM Report E-Signed By: Christy Salguero MD at 02/02/2018 8:17 AM WSN:[id number]
[2018-02-02] MEDS: ONDANSETRON 4 MG/2 ML VIAL IVP PRN (08:39)
[2018-02-02] MEDS: ENOXAPARIN 40 MG/0.4ML SYR SC SCH (08:44)
[2018-02-02] MEDS: HYDROCORTISONE 100 MG/2 ML IVP SCH ×2 (08:47→19:57)
[2018-02-02] MEDS: PANTOPRAZOLE SOD 40 MG IV VIAL IVP SCH (08:51)
[2018-02-02] MEDS: ARTIFICIAL TEARS OINT 7 GM 7 GM TUBE OU SCH ×2 (08:53→20:05)
[2018-02-02] MEDS: TACROLIMUS 0.5 MG CAPSULE FT SCH ×2 (08:53→19:58)
[2018-02-02] MEDS ORDERED: KCL (*) 20 MEQ/100 ML PREMIX 100 ML IV ONE ×2 (09:30→13:30)
[2018-02-02] MEDS: MOXIFLOX(*) 400MG/250ML PREMX 250 ML IVPB SCH (10:07)
--- NOTE | 2018-02-02 10:41 | Hospitalist Progress Note ---
Subjective Progress Notes Subjective He reports feeling fairly comfortable on the BiPAP. He does get anxious very easily with increased HR and RR. Physical Exam Vital Signs Date Time Temp Pulse Resp B/P (MAP) Pulse Ox O2 Delivery O2 Flow Rate FiO2 02/02/18 09:15 111 02/02/18 09:15 91 Bi-PAP 60.0 02/02/18 06:08 20 02/02/18 06:00 150/97 (114) 02/02/18 05:00 98.2 02/01/18 20:14 12.0 Intake and Output 02/03/18 07:00 Intake Total 0 ml Output Total 1350 ml Balance -1350 ml Intake Oral 0 ml Output Urine Total 1350 ml General Appearance: Alert, Awake ENT: Other (BiPAP) Neck: Other (RIJ site looks good) Cardiovascular: Other (Regular slightly tachycardic at times) Respiratory: Other (scattered rhonchi with a few rales bilaterally) Chest: No Tenderness GI: Soft and Non-Tender, Other (BSD are present) Extremities: Warm, Perfused Integumentary: Generalized Fragile Skin Result Diagram: 02/02/1845602/02/18456 Item Value Date Time Albumin 2.5 g/dl L 02/02/18456 Total Protein 5.4 gm/dl L 02/02/18456 Alkaline Phosphatase 195 U/L H 02/02/18456 Alanine Aminotransferase (ALT/SGPT) 90 U/L H 02/02/18456 Aspartate Amino Transf (AST/SGOT) 63 U/L H 02/02/18456 Total Bilirubin 0.4 mg/dl 02/02/18456 Calcium Level 8.1 mg/dl L 02/02/18456 Monitor Interpretation: Normal Sinus Rhythm Assessment and Plan Problems: (1) Meningitis due to Streptococcus pneumoniae Assessment & Plan: On admission he complained of headache and neck stiffness. We were unable to obtain a lumbar puncture because of his elevated INR. We elected to treat him initially with Primaxin, vancomycin, and moxifloxacin (due to penicillin allergy). Blood cultures from this admission and his previous ER visit have shown pansensitive Streptococcus pneumoniae. We narrowed his antibiotics to moxifloxacin and vancomycin and were planning for a total for 14 days of IV vancomycin and Avelox. yesterday his WBC increased and his CXR showed worsening infiltrates. We added back Primaxin to cover for the potential of Pseudomonas as he was intubated for several days. Today he does appear slightly improved. (2) Pulmonary infiltrates on CXR Status: Acute Assessment & Plan: The patient developed worsening upper lobe infiltrates on CXR. We added Primaxin to cover Pseudomonas as noted above. He is also on BiPAP. Will continue some diuresis with IV Lasix as well. (3) ARDS (adult respiratory distress syndrome) Status: Acute Assessment & Plan: He did develop increased work of breathing and O2 requirement. His chest x-ray has shown diffuse bilateral infiltrates consistent with ARDS. He was intubated and placed on mechanical ventilation on 01/24. He was extubated on 01/31 and did fairly well until yesterday morning when his respiratory rate increased and his CXR showed increased upper lobe infiltrates. We added back Primaxin, placed on BiPAP and diuresed. Overall, he does appear slightly improved. (4) Acute respiratory failure Assessment & Plan: He was on mechanical ventilation and was extubated 01/31 - see above. (5) Leukocytosis Status: Acute Assessment & Plan: He has had an elevated WBC fairly persistently back to 2015. However, this admission his WBC has been much higher. The patient has a h /o ALL and is on Prograf and currently on IV steroids. Dr. Herron (Heme/ Onc) requested a bone marrow biopsy, that was done 01/27. Results were negative for malignancy. (6) Hypokalemia Assessment & Plan: He has received frequent supplementation with IV fluids. Monitor labs. (7) DIC (disseminated intravascular coagulation) Status: Resolved Assessment & Plan: It did appear that he developed DIC. He is not having any current bleeding or clotting at this time. We elected not to place him prophylactic Lovenox initially (he did have SCDs in place). He is now on Lovenox. (8) Septic shock Status: Acute Assessment & Plan: He did present with fever of 103F. His cultures are positive for S. pneumoniae. His lactate and WBC were elevated. He did require vasopressor support with norepinephrine and fluid resuscitation. He was also started on stress dose hydrocortisone. He has now weaned off vasopressor support. His steroids will be weaned as tolerated. (9) Acute renal failure Status: Resolved Assessment & Plan: Resolved with IV fluids. 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 A level was in therapeutic range. He is back on tacrolimus now that the acute sepsis is improving. 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 Exam Sepsis Risk: Severe Sepsis Risk TIFFANY JACINTO MD Feb 02, 2018 10:41
[2018-02-02] MEDS: NS 0.45%(*) 1000 ML BAG 1,000 ML IV PRN ×2 (14:28→19:28)
[2018-02-02] MEDS: MORPHINE 2 MG/ML SYR IVP PRN ×2 (14:47→19:24)
--- NOTE | 2018-02-02 15:01 | Medical Nutrition Therapy ---
Nutrition Anthropometrics Height (Inches): 66.00 Height (Calculated Centimeters: 167.984354 Weight (Pounds): 157 Weight (Calculated Kilograms): 71.412 BMI Calculated: 24.53 Roly Nutrition Score: Probably Inadequate Roly Nutrition Risk Score: 14 Dietary Referral Nutrition Risk Factors: Nutrition Risk Comment: Physical Findings Physical Appearance: BMI 26-wt up due to IVF Skin Appearance Skin Appearance: Edema Edema Location Modifier: Both Edema Location: Foot Type of Edema: Degree of Edema: 1+ Gastrointestinal Symptoms GI Symtoms: Nausea Tube Present: OG Bowel Sounds: Recent Bowel Pattern: Stool Characteristics: Nutritional Diagnosis Nutritional Risk Acuity 1: TPN/PPN Nutritional Risk Acuity 2: Sepsis Past Medical History: leukemia, 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 Support, Increased Nutrient Needs Nutrition Etiology: Physiological Causes Nutrition Problem/Etiology/Sym: Inadequate kcal from nutrition support r/t discontinued tube feed with TPN Clinimix 4.25%-25% at 42mL/hr x 24 hrs meeting 44% of estimated kcal need and 61% of estimated protein need. Adjusted Energy Requirement Re: 2330 Protein Requirement: 71 Fluid Requirement: 2170 Diet Type: Dysphagia Stage 2, TPN/PPN Nutrition Intervention: Nutrition support, Incr diet as tolerated Diet Comment To RSA: ENCOURAGE PROTEIN INTAKE. OFFER NUTRITION SUPPLEMENT. Nutritional Support Current Enteral / Parental: TPN Current Tube Feeding Formula C: Clinimix 4.25/25 @ 42mL/hr Tube Feeding Supplement Streng: Full Current Duration: 24 Current Calories: 1031 Current Protein: 43 Tube Feeding Supplement Streng: Full Nutrition Monitoring & Eval Nutrition Goals: Eat 75-100% Meal Nutrition Follow-Up: Poor Intake RD Patient Assessment Time: [address] Assessment Type: RD Re-Assessment Patient Nutrition Acuity: 1-High Follow Up Date: Feb 04, 2018 Nutritional Comment: 01/22 Pt admitted with septic shock and ARF. Pt on regular diet and ate a small amount of first meal in facility. Pt reporteing N/V which may be affecting intake. Alb 3.5, WBC 25.7, Hct 136.8, Hbg 12.7. Will continue to monitor and encourage intake. 01/23 Intake very low likely due to N/V. Will offer nutr suppl if intake is less than 50%. Wt is up 24# since admit due to IVF. Notable labs include low H/H, BUN 29, Mg 1.6, elevated liver enz, tot pro 5.3 and alb 2.6. Will cont to monitor and encourage intake. 01/26 Pt placed on mech vent and TF. Est needs recalculated using [facility] formulary r/t mech vent. Pt recieving jevity 1 with final rate of 70 ml/hr plus propofol at 25.2mls/hr. TF+ propofol meeting 106% est kcal and protein needs. Fluid needs should be met with TF and IV fluids. Will cont to monitor. 01/28 TF stopped for high residuals then resumed. Cont to slowly increase by 5ml q 6 hrs final rate of 70ml/hr with 20ml water X 6. Nursing reported tolerating well last assessment. Propofol has declined to 12.6mls/hr. With decreased propofol, TF is meeting 93% est kcal needs and 106% est protein needs. Pt may benefit from a final rate of 75ml/hr to provide 2210kcal with current rate of propofol and meet kcal needs. Alb cont low at 2.2. Wt is up 7# since admit. 01/30 Glu 160, Alb 2.3, High Alk Phos/ALT. TPN Clinimix 4.25%-25% at 42mL/hr and Tube feeding Jevity @ 30mL/hr. Pt also receiving varying amounts of propofol for sedation. At current rate of TPN and tube feeding, pt receiving 1791 Kcal and 75 grams protein per 24 hrs. This provides 80% of estimated Kcal needs and 106% of estimated protein needs. Current hyperglycemia d/t TPN and steroids. Monitor labs, clinical progression, tolerance to tube feeding. 01/31 Glu 193, Alb 2.2, High Alk Phos/ALT. TPN Clinimix 4.25%-25% at 42mL/hr contines and increased Tube feeding Jevity @ 40mL/hr. Pt also receiving varying amounts of propofol for sedation which contributes 1.1 kcals/mL as fat. At current rate of TPN and tube feeding, pt receiving 2046 Kcal and 86 grams protein per 24 hrs. This provides 91% of estimated Kcal needs and 121% of estimated protein needs. Monitor labs, clinical progression, tolerance to tube feeding. 02/01 Recommend advance to Regular diet. Continue TPN until oral intake meets 75-100% of estimated needs. Tube Feed and Propofol discontinued. TPN Clinimix 4.25%-25% at 42mL/hr is curently providing 1031 kcal and 43 grams protein per 24 hrs meeting 44% of estimated kcal need and 61% of estimated protein need. Monitor labs, clinical progression, diet advancement and tolerance. 02/02 Per physician note pt improving but becomes anxious easily. Pt curently on bipap. LOG CLERK evaluated pt on 02/01. Pt diet advanced to Dysphagia 2 diet order. Pt consumed 100% vanilla shake with 6 gm protein powder, refused dinner and consumed 100% x small breakfast. Pt intakes not yet meeting 75% of needs or greater. Pt continues to remain on TPN at 42 mL/hr x 24 hrs. Monitor and encourage increased intake. LEA OSHEA Feb 02, 2018 13:10
[2018-02-02] MEDS: LORazepam 2 MG/ML VIAL IVP PRN (19:57)
[2018-02-02] MEDS: [UNRECOGNIZED DRUG - OTHER] IV SCH (20:05)
[2018-02-03] VITALS (71 sets, daily range): BP systolic 65–199; BP diastolic 43–126
[2018-02-03] MEDS: IMIPENEM/CILASTA(*) 500MG VIAL 500 MG in NS(*) 0.9% 100 ML BAG 100 ML IVPB SCH ×4 (01:54→19:49)
[2018-02-03] MEDS: VANCOMYCIN(*) 1 GM VIAL 1 GM, VANCOMYCIN (*) 0.5 GM VIAL 0.25 GM in NS(*) 0.9% 250 ML B... IVPB SCH (03:00)
[2018-02-03] MEDS: LEVALBUTEROL 0.63 MG/3 ML NEB NEB SCH ×5 (05:45→21:40)
[2018-02-03 05:47] LABS: PLATELET COUNT, AUTOMATED 471 K/uL (150-450)
[2018-02-03] MEDS: INSULIN HUM LISPRO 100 UN/ML 3 ML VIAL SUBQ PRN ×2 (06:28→18:37)
--- NOTE | 2018-02-03 06:43 | RADIOLOGY IMAGING REPORT ---
[facility] PATIENT NAME: Lucio Lloyd : 1985 MR: [id number] V: [id number] EXAM DATE: ORDERING PHYSICIAN: TIFFANY JACINTO TECHNOLOGIST: Location: [facility] [place] Patient: Lucio Lloyd : 1985 Visit/Account:[id number] Date of Sevice: 02/03/2018 PORTABLE CHEST: Indication: Respiratory insufficiency. Technique: A single frontal film was obtained. Comparison: 02/02/2018 Skeletal and soft tissue structures: Intact and unchanged. Heart and mediastinum: Stable. Lung collins: The diffuse parenchymal opacities are not significantly changed. Pleural spaces: There are persistent small effusions. No evidence of pneumothorax. Impression: No significant change. Report Dictated By: Benedict Cast MD at 02/03/2018 6:38 AM Report E-Signed By: Benedict Cast MD at 02/03/2018 6:39 AM WSN:[id number]
[2018-02-03] MEDS ORDERED: FUROSEMIDE 40 MG/4 ML VIAL IVP SCH ×3 (08:17→21:00)
[2018-02-03] MEDS: PANTOPRAZOLE SOD 40 MG IV VIAL IVP SCH (08:30)
[2018-02-03] MEDS: HYDROCORTISONE 100 MG/2 ML IVP SCH ×2 (08:30→20:59)
[2018-02-03] MEDS: KCL (*) 20 MEQ/100 ML PREMIX 100 ML IV SCH ×2 (08:30→11:08)
[2018-02-03] MEDS: ENOXAPARIN 40 MG/0.4ML SYR SC SCH (08:31)
[2018-02-03] MEDS: ARTIFICIAL TEARS OINT 7 GM 7 GM TUBE OU SCH ×2 (09:00→21:01)
[2018-02-03] MEDS: TACROLIMUS 0.5 MG CAPSULE FT SCH ×2 (09:00→20:59)
[2018-02-03] MEDS: MORPHINE 2 MG/ML SYR IVP PRN (09:59)
[2018-02-03] MEDS: MOXIFLOX(*) 400MG/250ML PREMX 250 ML IVPB SCH (09:59)
[2018-02-03] MEDS ORDERED: MAGIC MOUTHWASH 90 ML BTL PO PRN (12:20)
[2018-02-03] MEDS: LORazepam 2 MG/ML VIAL IVP PRN (12:39)
[2018-02-03] MEDS: VANCOMYCIN(*) 1 GM VIAL 1 GM, VANCOMYCIN (*) 0.5 GM VIAL 0.5 GM in NS(*) 0.9% 250 ML BA... IVPB SCH ×2 (12:47→19:51)
[2018-02-03] MEDS ORDERED: ETOMIDATE 20 MG/10 ML VIAL ONE (13:46)
[2018-02-03] MEDS ORDERED: ROCURONIUM BROM 10 MG/ML 10 ML ONE (13:47)
[2018-02-03] MEDS ORDERED: SUCCINYLCHOL CHL 200MG/10ML VL ONE (13:47)
[2018-02-03] MEDS ORDERED: NS(*) 0.9% 100 ML BAG 100 ML ONE (14:25)
[2018-02-03] MEDS ORDERED: LABETALOL HCL 100 MG/20ML VIAL IVP ONE (14:57)
[2018-02-03] MEDS: NS(*) 0.9% 500 ML BAG 500 ML IV PRN (15:00)
[2018-02-03] MEDS: PROPOFOL(*)1000 MG/100 ML VIAL 100 ML IV PRN ×2 (15:02→21:02)
--- NOTE | 2018-02-03 15:17 | RADIOLOGY IMAGING REPORT ---
[place] [facility] [place] Lucio Lloyd : 1985 MR: [id number] V: [id number] EXAM DATE: ORDERING PHYSICIAN: CAYLA PANDA TECHNOLOGIST: [place] [facility] [place]io [place] : 1985 Visit/Account:[id number] Date of Sevice: 02/03/2018 Exam type: CHEST SINGLE AP History: Intubation Comparison: February 03, 2018 5:53 AM. Findings: The compared the prior study there is been placement of an endotracheal tube the distal tip projects between the clavicles and [place]. There is also been placement of an NG/OG tube distal tip projects over the left upper quadrant of abdomen right IJ catheter remains unchanged. Diffuse parenchymal opa [place] throughout the lung slightly increased particularly over the left mid and lower lung field. C ardiac silhouette appears stable small bilateral pleural effusions unchanged. IMPRESSION: 1. There is been interval placement endotracheal tube and NG/OG tube appear to been good position on this single AP view Extensive opacities throughout the lungs slightly increased particularly over the left mid and lower lung field Report Dictated By: Christy Salguero MD at 02/03/2018 3:08 PM Report E-Signed By: Christy Salguero MD at 02/03/2018 3:13 PM WSN:[email or web address]
[2018-02-03] MEDS ORDERED: VECURONIUM BROM(*) 10 MG/VIAL 10 MG in NS(*) 0.9% 100 ML BAG 100 ML IV PRN (15:20)
[2018-02-03] MEDS: HYDROmorphone HCL 2 MG/ML SDV IVP PRN (15:34)
--- NOTE | 2018-02-03 15:37 | Hospitalist Progress Note ---
Subjective Progress Notes Subjective This patient was admitted for meningitis. He has had increased work of breathing through the day. Patient Complains of: Cardiovascular: Chest Pain Respiratory: Shortness of Breath Physical Exam Vital Signs Date Time Temp Pulse Resp B/P (MAP) Pulse Ox O2 Delivery O2 Flow Rate FiO2 02/03/18 14:44 100.0 02/03/18 13:28 121 40 02/03/18 13:28 93 Bi-PAP 02/03/18 13:00 99.0 152/109 (123) 90.0 Intake and Output 02/04/18 07:00 Intake Total 677 ml Output Total 2750 ml Balance -2073 ml IV Total 677 ml Output Urine Total 2750 ml # Bowel Movements 1 Cardiovascular: Other (Tachycardic) Respiratory: Other (Bilateral diminished breath sounds.) Extremities: No Edema Integumentary: No Cyanosis Result Diagram: 02/03/1851902/03/18519 Monitor Interpretation: Normal Sinus Rhythm Assessment and Plan Problems: (1) ARDS (adult respiratory distress syndrome) Status: Acute Assessment & Plan: He did develop increased work of breathing and O2 requirement. His chest x-ray has shown diffuse bilateral infiltrates consistent with ARDS. He was intubated and placed on mechanical ventilation on 01/24. He was extubated on 01/31 and did fairly well until yesterday morning when his respiratory rate increased and his CXR showed increased upper lobe infiltrates. We added back Primaxin, placed on BiPAP and diuresed. Overall, he does appear slightly improved. Today he has had increased work of breathing on BiPAP and also failed trials on the Vapotherm. After talking with him and his family we have elected to place him back on mechanical ventilation. He has been reintubated by anesthesia and we will also be temporarily paralyzing him to improve his synchrony with the ventilator. We have placed him on propofol and rocuronium. (2) Acute respiratory failure Assessment & Plan: He was on mechanical ventilation and was extubated 01/31 - He has been reintubated as above. (3) Meningitis due to Streptococcus pneumoniae Assessment & Plan: On admission he complained of headache and neck stiffness. We were unable to obtain a lumbar puncture because of his elevated INR. We elected to treat him initially with Primaxin, vancomycin, and moxifloxacin (due to penicillin allergy). Blood cultures from this admission and his previous ER visit have shown pansensitive Streptococcus pneumoniae. We narrowed his antibiotics to moxifloxacin and vancomycin and were planning for a total for 14 days of IV vancomycin and Avelox. yesterday his WBC increased and his CXR showed worsening infiltrates. We added back Primaxin to cover for the potential of Pseudomonas as he was intubated for several days. Today he does appear slightly improved. (4) Pulmonary infiltrates on CXR Status: Acute Assessment & Plan: The patient developed worsening upper lobe infiltrates on CXR. We added Primaxin to cover Pseudomonas as noted above. He is also on BiPAP. Will continue some diuresis with IV Lasix as well. (5) Leukocytosis Status: Acute Assessment & Plan: He has had an elevated WBC fairly persistently back to 2015. However, this admission his WBC has been much higher. The patient has a h /o ALL and is on Prograf and currently on IV steroids. Dr. Herron (Heme/ Onc) requested a bone marrow biopsy, that was done 01/27. Results were negative for malignancy. (6) Hypokalemia Assessment & Plan: He has received frequent supplementation with IV fluids. Monitor labs. (7) DIC (disseminated intravascular coagulation) Status: Resolved Assessment & Plan: It did appear that he developed DIC. He is not having any current bleeding or clotting at this time. We elected not to place him prophylactic Lovenox initially (he did have SCDs in place). He is now on Lovenox. (8) Septic shock Status: Acute Assessment & Plan: He did present with fever of 103F. His cultures are positive for S. pneumoniae. His lactate and WBC were elevated. He did require vasopressor support with norepinephrine and fluid resuscitation. He was also started on stress dose hydrocortisone. He has now weaned off vasopressor support. His steroids will be weaned as tolerated. (9) Acute renal failure Status: Resolved Assessment & Plan: Resolved with IV fluids. (10) Iahpk-kehrdz-orgc disease Status: Chronic Assessment & Plan: He is on chronic treatment with tacrolimus. A level was in therapeutic range. He is back on tacrolimus now that the acute sepsis is improving. 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 Exam Sepsis Risk: Severe Sepsis Risk CAYLA PANDA DO Feb 03, 2018 15:37
[2018-02-03] MEDS ORDERED: ROCURONIUM IV ONE (15:40)
[2018-02-03] MEDS ORDERED: SODIUM CHLORIDE 0.9% IV ONE (15:40)
[2018-02-03] MEDS ORDERED: ROCURONIUM BROM 10 MG/ML 10 ML IVP ONE (16:00)
[2018-02-03] MEDS ORDERED: SODIUM CHLORIDE 0.9% IV PRN (16:05)
[2018-02-03] MEDS ORDERED: ROCURONIUM IV PRN (16:05)
[2018-02-03] MEDS: NS 0.45%(*) 1000 ML BAG 1,000 ML IV PRN (19:52)
[2018-02-03] MEDS: [UNRECOGNIZED DRUG - OTHER] IV SCH (20:59)
[2018-02-03] MEDS: ORAL SUCTION/CHLORHX/SWAB KIT MT SCH (21:01)
[2018-02-04] VITALS (69 sets, daily range): BP systolic 74–173; BP diastolic 34–109
[2018-02-04] MEDS: INSULIN HUM LISPRO 100 UN/ML 3 ML VIAL SUBQ PRN ×3 (00:30→12:34)
[2018-02-04] MEDS: IMIPENEM/CILASTA(*) 500MG VIAL 500 MG in NS(*) 0.9% 100 ML BAG 100 ML IVPB SCH ×3 (01:48→14:23)
[2018-02-04] MEDS: PROPOFOL(*)1000 MG/100 ML VIAL 100 ML IV PRN ×3 (02:55→15:25)
[2018-02-04] MEDS: VANCOMYCIN(*) 1 GM VIAL 1 GM, VANCOMYCIN (*) 0.5 GM VIAL 0.5 GM in NS(*) 0.9% 250 ML BA... IVPB SCH ×2 (03:32→12:21)
[2018-02-04 05:35] LABS: PLATELET COUNT, AUTOMATED 499 K/uL (150-450)
[2018-02-04] MEDS: LEVALBUTEROL 0.63 MG/3 ML NEB NEB SCH ×4 (05:50→18:07)
--- NOTE | 2018-02-04 06:27 | RADIOLOGY IMAGING REPORT ---
FACILITY: [facility] - [place] PATIENT NAME: Lucio Lloyd : 1985 MR: [id number] V: [id number] EXAM DATE: ORDERING PHYSICIAN: CAYLA PANDA TECHNOLOGIST: Location: [facility] - [place] Patient: Lucio Lloyd : 1985 Visit/Account:[id number] Date of Sevice: 02/04/2018 Portable chest: Indication: Pneumonia and ARDS. Technique: A single frontal film was obtained. Comparison: 02/03/2018 Lines and tubes: Remain in satisfactory position. Skeletal and soft tissue structures: Intact and unchanged. Heart and mediastinum: Stable. Lung collins: Diffuse parenchymal opacities persist. There appears to be slight improvement. Pleural spaces: The right effusion is unchanged. The left effusion appears smaller. No evidence of pn eumothorax. Impression: Slight interval improvement. Report Dictated By: Benedict Cast MD at 02/04/2018 6:22 AM Report E-Signed By: Benedict Cast MD at 02/04/2018 6:24 AM WSN:[id number]
[2018-02-04] MEDS: KCL (*) 20 MEQ/100 ML PREMIX 100 ML IV SCH ×4 (06:29→11:16)
[2018-02-04] MEDS: ENOXAPARIN 40 MG/0.4ML SYR SC SCH (08:39)
[2018-02-04] MEDS: PANTOPRAZOLE SOD 40 MG IV VIAL IVP SCH (08:39)
[2018-02-04] MEDS: HYDROCORTISONE 100 MG/2 ML IVP SCH (08:39)
[2018-02-04] MEDS: ORAL SUCTION/CHLORHX/SWAB KIT MT SCH (08:40)
[2018-02-04] MEDS: ARTIFICIAL TEARS OINT 7 GM 7 GM TUBE OU SCH (08:40)
[2018-02-04] MEDS: TACROLIMUS 0.5 MG CAPSULE FT SCH (08:40)
[2018-02-04] MEDS: MORPHINE 2 MG/ML SYR IVP PRN (09:13)
[2018-02-04] MEDS: MOXIFLOX(*) 400MG/250ML PREMX 250 ML IVPB SCH (09:59)
[2018-02-04] MEDS: HYDROmorphone HCL 2 MG/ML SDV IVP PRN (11:17)
[2018-02-04] MEDS ORDERED: NOREPINE BITAR* 4 MG/4 ML AMP 4 MG in D5W(*) 250 ML BAG 246 ML IV PRN (12:30)
[2018-02-04] MEDS: NS 0.45%(*) 1000 ML BAG 1,000 ML IV PRN (12:31)
--- NOTE | 2018-02-04 13:29 | Hospitalist Progress Note ---
Subjective Progress Notes Subjective The patient remains intubated, paralyzed and sedated. Physical Exam Vital Signs Date Time Temp Pulse Resp B/P (MAP) Pulse Ox O2 Delivery O2 Flow Rate FiO2 02/04/18 13:16 83 30 02/04/18 12:50 118/76 (90) 93 Mechanical Ventilator 02/04/18 12:45 50.0 02/04/18 12:15 97.4 02/03/18 18:30 95.0 Intake and Output 02/05/18 06:59 Intake Total 872 ml Output Total 895 ml Balance -23 ml IV Total 812 ml Tube Irrigant 60 ml Output Urine Total 895 ml General Appearance: Other (Intubated and sedated.) Neuro: Other (Sedated.) Neck: Other (Jugular line clean without redne) Cardiovascular: Other (Regular rate and rhythm.) Respiratory: Other (Crackles in midaxillary lines bilaterally.) GI: Other (Sightly distended, BS hypoactive but present. No palpable mass.) Extremities: Warm, Perfused, Other (R posterior tibial pulse is bounding. Both pulses L foot are easily palpable.) Integumentary: Other (Ecchmotic areas on ankles and feet are fading.) Psych: Other (Sedated.) Result Diagram: 02/04/18 0508 02/04/18 0508 Item Value Date Time Blood Gas Puncture Site Right radial 01/30/18 0520 Blood Gas Patient Temperature 98.0 DEGREES 01/30/18 0520 Arterial Blood pH 7.51 H 01/30/18 0520 Arterial Blood Partial Pressure CO2 35 mmHg 01/30/18 0520 Arterial Blood Partial Pressure O2 73 mmHg 01/30/18 0520 Arterial Blood HCO3 28 mmol/L H 01/30/18 0520 Arterial Blood Oxygen Saturation 96 % 01/30/18 0520 Arterial Blood Base Excess 4.0 mmol/L 01/30/18 0520 Emil Test Acceptable 01/30/18 0520 Oxygen Liters/Minute 40% 01/30/18 0520 Random Glucose 178 mg/dl H 01/30/18 0518 Calcium Level 7.8 mg/dl L 01/30/18 0518 Total Bilirubin 0.4 mg/dl 01/30/18 0518 Aspartate Amino Transf (AST/SGOT) 33 U/L 01/30/18 0518 Alanine Aminotransferase (ALT/SGPT) 58 U/L H 01/30/18 0518 Alkaline Phosphatase 128 U/L H 01/30/18 0518 Total Protein 4.9 gm/dl L 01/30/18 0518 Albumin 2.3 g/dl L 01/30/18 0518 Magnesium Level 1.8 mg/dl 01/30/18 05 Cytomegalovirus IgG Antibody 2.10 U/mL 01/21/181829 Cytomegalovirus IgM Antibody <8.0 AU/mL 01/21/18 183 Blood Gas Puncture Site Left radial 02/04/18 05 Blood Gas Patient Temperature 97.7 DEGREES 02/04/18 05 Arterial Blood pH 7.49 H 02/04/18 05 Arterial Blood Partial Pressure CO2 50 mmHg H 02/04/18 05 Arterial Blood Partial Pressure O2 51 mmHg L 02/04/18 05 Arterial Blood HCO3 38 mmol/L H 02/04/18 05 Arterial Blood Oxygen Saturation 89 % L 02/04/18 05 Arterial Blood Base Excess 15.0 mmol/L 02/04/18 05 Emil Test Acceptable 02/04/18 0513 Oxygen Liters/Minute 50% 02/04/18 0513 White Blood Count 13.8 k/uL H 02/04/18 0508 Red Blood Count 2.75 M/uL L 02/04/18 0508 Hemoglobin 8.8 g/dL *L 02/04/18 0508 Hematocrit 25.6 % *L 02/04/18 0508 Mean Corpuscular Volume 93.3 fL 02/04/18 0508 Mean Corpuscular Hemoglobin 32.2 pg 02/04/18 0508 Mean Corpuscular Hemoglobin Concent 34.5 g/dL 02/04/18 0508 Red Cell Distribution Width 15.4 % H 02/04/18 0508 Platelet Count 499 K/uL H 02/04/18 0508 Mean Platelet Volume 8.9 fL 02/04/18 0508 Neutrophils (%) (Auto) 77.2 % H 02/04/18 0508 Lymphocytes (%) (Auto) 14.5 % L 02/04/18 0508 Monocytes (%) (Auto) 7.6 % 02/04/18 0508 Eosinophils (%) (Auto) 0.3 % L 02/04/18 0508 Basophils (%) (Auto) 0.4 % 02/04/18 0508 Nucleated RBC Relative Count (auto) 0.5 /100WBC 02/04/18 0508 Neutrophils # (Auto) 10.7 K/uL H 02/04/18 0508 Lymphocytes # (Auto) 2.0 K/uL 02/04/18 0508 Monocytes # (Auto) 1.1 K/uL H 02/04/18 0508 Eosinophils # (Auto) 0.0 K/uL 02/04/18 0508 Basophils # (Auto) 0.1 K/uL 02/04/18 0508 Nucleated RBC Absolute Count (auto) 0.07 K/uL 02/04/18 0508 Vancomycin Level Trough 18.24 ug/ml 02/04/18 1053 Vancomycin Last Dose Date 02/04/18 02/04/18 105 Vancomycin Last Dose Time 39902/04/18 1053 [facility] *LIVE* [address] [place] [address] AAKASH KAPOOR M.D., DIRECTOR OF LABORATORY SERVICES TANG POTTER M.D., PATHOLOGIST RUN DATE: 01/24/18 Specimen Inquiry Report PAGE 1 RUN TIME: 0806 PATIENT: JAC MARTINEZ ACCT: [id number] LOC: ICU U : [id number] AGE/SX: 32/M ROOM: 2260 REG : 01/21/[address]: CAYLA PANDA DO : 1985 BED: 260 DIS : STATUS: ADM IN TLOC: SPEC #: [id number] TEENA: 01/21/18 STATUS: COMP REQ #: [id number] RECD: 01/21/[address] [facility] [address]: SUNITA DANGELO MD SOURCE: BLOOD PER ENTR: 01/21/18-[address]: BREN GRANT MD [facility]: ORDERED: BCGS, CULT BLOOD Procedure Result Verified BLOOD CULTURE GRAM STAIN Final 01/21/18 AEROBIC BOTTLE POSITIVE GRAM POSITIVE COCCI POSITIVE BLOOD CULTURE GRAM STAIN REPORT CALLED TO: NILSA LOCKE, ICU DATE/TIME REPORT CALLED: 01/21/18 @ 2347 CALLED BY: RISSA RDAKE BLOOD CULTURE Final 01/24/18 Organism 1 STREPTOCOCCUS PNEUMONIAE GROWTH PRESENT IN BOTH THE AEROBIC AND ANAEROBIC BOTTLES SEE #476 FOR SUSCEPTIBILITIES GERARDO BOTTLE POSITIVE GRAM POSITIVE COCCI IN CHAINS PHONE GLADYS ELIZABETH R.N. DATE D/T 01/22/2018@1051 TECH:LIN Imaging FACILITY: [facility] [place] PATIENT NAME: Jac Martinez DOB: 1985 MR: [id number] V: [id number] EXAM DATE: [id number] ORDERING PHYSICIAN: CAYLA PANDA TECHNOLOGIST: Location: [facility] [place] Patient: Jac Martinez : 1985 Visit/Account:[id number] Date of Sevice: 02/04/2018 Portable chest: Indication: Pneumonia and ARDS. Technique: A single frontal film was obtained. Comparison: 02/03/2018 Lines and tubes: Remain in satisfactory position. Skeletal and soft tissue structures: Intact and unchanged. Heart and mediastinum: Stable. Lung collins: Diffuse parenchymal opacities persist. There appears to be slight improvement. Pleural spaces: The right effusion is unchanged. The left effusion appears smaller. No evidence of pneumothorax. Impression: Slight interval improvement. Report Dictated By: Benedict Cast MD at 02/04/2018 6:22 AM Report E-Signed By: Benedict Cast MD at 02/04/2018 6:24 AM [id number] Pathology See bone marrow biopsy results in chart. EKG Interpretation FACILITY: [facility] [place] PATIENT NAME: JAC MARTINEZ : [id number] MR: [id number] V: [id number] EXAM DATE: ORDERING PHYSICIAN: SUNITA DANGELO TECHNOLOGIST: Test Reason : TACHY Blood Pressure : / mmHG Vent. Rate : 123 BPM Atrial Rate : 123 BPM P-R Int : 130 ms QRS Dur : 082 ms QT Int : 344 ms P-R-T Axes : 049 -34 002 degrees QTc Int : 492 ms Sinus tachycardia Left axis deviation Moderate voltage criteria for LVH, may be normal variant Abnormal ECG When compared with ECG of 30-OCT-2015 08:44, T wave inversion now evident in Inferior leads Confirmed by CAYLA PANDA ([id number]) on 01/22/2018 6:38:46 AM Referred By: ANTOLIN Confirmed By:CAYLA PANDA [id number] T: BYERJOHN/ Monitor Interpretation: Normal Sinus Rhythm Assessment and Plan Problems: (1) ARDS (adult respiratory distress syndrome) Status: Acute Assessment & Plan: The patient was admitted to [facility] on 01/21/18. He developed increased work of breathing and O2 requirement. His chest x-ray showed diffuse bilateral infiltrates consistent with ARDS. He was intubated and placed on mechanical ventilation on 01/24. He was extubated on 01/31 and did fairly well until 02/02 in the morning when his respiratory rate increased and his CXR showed increased upper lobe infiltrates. Primaxin was added and he was placed on BiPAP and diuresed. On 02/03 he had increased work of breathing on BiPAP and also failed trials on Vapotherm. After talking with him and his family he was placed back on mechanical ventilation. He was reintubated by anesthesia and he was paralyzed to improve his synchrony with the ventilator. He was placed on propofol and rocuronium. On 02/04/18 the educational technology specialist oncology nurse practitioner at [facility] was consulted regarding the patient. 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 The scheduling assistant was then consulted and agreed to take the patient in transfer. The patient will be transferred via helicopter if weather allows. All records will be sent with him including a disk with his radiologic imaging studies. (2) Acute respiratory failure Assessment & Plan: He was on mechanical ventilation and was extubated 01/31. He had to be reintubated as above. (3) Meningitis due to Streptococcus pneumoniae Assessment & Plan: On admission he complained of headache and neck stiffness. We were unable to obtain a lumbar puncture because of elevated INR. He was initially treated with Primaxin, vancomycin, and moxifloxacin (due to penicillin allergy). Blood cultures from this admission and his previous ER visit showed pansensitive Streptococcus pneumoniae. We narrowed his antibiotics to moxifloxacin and vancomycin, planning for a total for 14 days of IV vancomycin and Avelox. On 02/02, his WBC increased and his CXR showed worsening infiltrates. Primaxin was added back to cover for potential Pseudomonas as he had been intubated for several days. (4) Pulmonary infiltrates on CXR Status: Acute Assessment & Plan: The patient developed worsening upper lobe infiltrates on CXR on 02/01. Primaxin was added to cover Pseudomonas as noted above. He was also placed on BiPAP. He ultimately required reintubation as above. (5) Leukocytosis Status: Acute Assessment & Plan: The patient was noted to have had an elevated WBC fairly persistently back to 2014. However, his WBC was much higher on admission. The patient has a history of ALL and has been on Prograf. Dr. Grant (Heme/Onc ) requested a bone marrow biopsy, that was performed on 01/27. Results were negative for malignancy. (6) Hypokalemia Assessment & Plan: The patient received frequent supplementation with IV fluids and potassium riders. (7) DIC (disseminated intravascular coagulation) Status: Resolved Assessment & Plan: It did appear that he developed DIC. He did not have any bleeding or clotting during his stay. We elected not to place him on prophylactic Lovenox initially (he did have SCDs in place). He is now on Lovenox. (8) Septic shock Status: Acute Assessment & Plan: He did present with fever of 103F. His cultures were positive for S. pneumoniae. His lactate and WBC were elevated. He did require vasopressor support with norepinephrine and fluid resuscitation. He was also started on stress dose hydrocortisone. He was weaned off vasopressor support. His steroids were weaned as tolerated. He did develop hypotension after receiving a dose of Dilaudid on 02/04. This was felt to be due to recent diuresis in combination with the Diluadid. He was placed on a very small dose of Levaphed while receiving an IV bolus of fluids. (9) Acute renal failure Status: Resolved Assessment & Plan: Resolved with IV fluids. 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 A level was in therapeutic range. (11) Acute lymphoblastic leukemia (ALL) in remission Status: Chronic Assessment & Plan: His bone marrow biopsy from 01/27 was negative for cancer. Time Spent on Plan of Care: < 30 min Copies to: BREN GRANT MD Exam Sepsis Risk: Severe Sepsis Risk ORAL JAICNTO MD Feb 04, 2018 13:29
--- NOTE | 2018-02-04 13:56 | Medical Nutrition Therapy ---
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 Support, Increased Nutrient Needs Nutrition Etiology: Medications, Physiological Causes Nutrition Problem/Etiology/Sym: Inadequate kcal from nutrition support r/t discontinued tube feed with TPN Clinimix 4.25%-25% at 42mL/hr x 24 hrs meeting 44% of estimated kcal need and 61% of estimated protein need. Adjusted Energy Requirement Re: 2330 Protein Requirement: 71 Fluid Requirement: 2170 Diet Type: NPO (Nothing by Mouth), TPN/PPN Nutrition Intervention: Nutrition support, Incr diet as tolerated Nutritional Support Current Enteral / Parental: TPN Current Tube Feeding Formula C: Clinimix 4.25/25 @ 42mL/hr Tube Feeding Supplement Streng: Full Current Duration: 24 Current Calories: 1031 Current Protein: 43 Recommended Enteral / Parental: TPN Tube Feeding Supplement Streng: Full Recommended Goal Rate: 62 mL/hr Recommended Duration: 24 (hrs/day) Recommended Feeding Comment: TPN Recommended Calories: 1836 Recommended Protein: 76 Recommended Lipids Calories: 438 (Based on 16.6 mLs/hr x 24 hrs) Total Recommended Calories: 2274 Nutrition Monitoring & Eval Nutrition Follow-Up: Poor Intake RD Patient Assessment Time: [address] Assessment Type: RD Re-Assessment Patient Nutrition Acuity: 1-High Follow Up Date: Feb 06, 2018 Nutritional Comment: 01/22 Pt admitted with septic shock and ARF. Pt on regular diet and ate a small amount of first meal in facility. Pt reporteing N/V which may be affecting intake. Alb 3.5, WBC 25.7, Hct 136.8, Hbg 12.7. Will continue to monitor and encourage intake. 01/23 Intake very low likely due to N/V. Will offer nutr suppl if intake is less than 50%. Wt is up 24# since admit due to IVF. Notable labs include low H/H, BUN 29, Mg 1.6, elevated liver enz, tot pro 5.3 and alb 2.6. Will cont to monitor and encourage intake. 01/26 Pt placed on mech vent and TF. Est needs recalculated using [facility] formulary r/t mech vent. Pt recieving jevity 1 with final rate of 70 ml/hr plus propofol at 25.2mls/hr. TF+ propofol meeting 106% est kcal and protein needs. Fluid needs should be met with TF and IV fluids. Will cont to monitor. 01/28 TF stopped for high residuals then resumed. Cont to slowly increase by 5ml q 6 hrs final rate of 70ml/hr with 20ml water X 6. Nursing reported tolerating well last assessment. Propofol has declined to 12.6mls/hr. With decreased propofol, TF is meeting 93% est kcal needs and 106% est protein needs. Pt may benefit from a final rate of 75ml/hr to provide 2210kcal with current rate of propofol and meet kcal needs. Alb cont low at 2.2. Wt is up 7# since admit. 01/30 Glu 160, Alb 2.3, High Alk Phos/ALT. TPN Clinimix 4.25%-25% at 42mL/hr and Tube feeding Jevity @ 30mL/hr. Pt also receiving varying amounts of propofol for sedation. At current rate of TPN and tube feeding, pt receiving 1791 Kcal and 75 grams protein per 24 hrs. This provides 80% of estimated Kcal needs and 106% of estimated protein needs. Current hyperglycemia d/t TPN and steroids. Monitor labs, clinical progression, tolerance to tube feeding. 01/31 Glu 193, Alb 2.2, High Alk Phos/ALT. TPN Clinimix 4.25%-25% at 42mL/hr contines and increased Tube feeding Jevity @ 40mL/hr. Pt also receiving varying amounts of propofol for sedation which contributes 1.1 kcals/mL as fat. At current rate of TPN and tube feeding, pt receiving 2046 Kcal and 86 grams protein per 24 hrs. This provides 91% of estimated Kcal needs and 121% of estimated protein needs. Monitor labs, clinical progression, tolerance to tube feeding. 02/01 Recommend advance to Regular diet. Continue TPN until oral intake meets 75-100% of estimated needs. Tube Feed and Propofol discontinued. TPN Clinimix 4.25%-25% at 42mL/hr is curently providing 1031 kcal and 43 grams protein per 24 hrs meeting 44% of estimated kcal need and 61% of estimated protein need. Monitor labs, clinical progression, diet advancement and tolerance. 02/02 Per physician note pt improving but becomes anxious easily. Pt curently on bipap. [employer]CHANT TAILOR evaluated pt on 02/01. Pt diet advanced to Dysphagia 2 diet order. Pt consumed 100% vanilla shake with 6 gm protein powder, refused dinner and consumed 100% x small breakfast. Pt intakes not yet meeting 75% of needs or greater. Pt continues to remain on TPN at 42 mL/hr x 24 hrs. Monitor and encourage increased intake. 02/03 Pt has been reintubated, placed back on mechanical vent and placed on propofol at 16.6 mL/hr. Propofol is providing 438 kcal/day. Pt continues to remain on TPN at 42 mL/hr x 24 hrs. Recommend increasing TPN to 1800 mL/day running at 75 mL/hr x 24 hrs to provide 1836 kcal (2274 kcal with propofol) and 76 g protein. This meets 102% of estimated need for kcal and 107% of estimated protein need. Continue to monitor tolerance to TPN and diet advancement as medically feasible. LEA OSHEA Feb 04, 2018 13:30
--- NOTE | 2018-02-26 19:56 | Hospitalist Depart ---
Discharge Summary Reason for Hosp/Final Diag: (1) ARDS (adult respiratory distress syndrome) Status: Acute Hospital Course & Plan: The patient was admitted to [facility] on 01/21/18. He developed increased work of breathing and O2 requirement. His chest x-ray showed diffuse bilateral infiltrates consistent with ARDS. He was intubated and placed on mechanical ventilation on 01/24. He was extubated on 01/31 and did fairly well until 02/02 in the morning when his respiratory rate increased and his CXR showed increased upper lobe infiltrates. Primaxin was added and he was placed on BiPAP and diuresed. On 02/03 he had increased work of breathing on BiPAP and also failed trials on Vapotherm. He was placed back on mechanical ventilation. He was reintubated by anesthesia and he was paralyzed to improve his synchrony with the ventilator. He was placed on propofol and rocuronium. On 02/04/18 the mission coordinator oncology nurse practitioner at [facility] was consulted regarding the patient. 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 The dead mail checker was then consulted and agreed to take the patient in transfer. The patient was transferred via helicopter. All records were sent with him including a disk with his radiologic imaging studies. (2) Acute respiratory failure Hospital Course & Plan: He was on mechanical ventilation and was extubated 01/31. He had to be reintubated as above. (3) Meningitis due to Streptococcus pneumoniae Hospital Course & Plan: On admission he complained of headache and neck stiffness. We were unable to obtain a lumbar puncture because of elevated INR. He was initially treated with Primaxin, vancomycin, and moxifloxacin (due to penicillin allergy). Blood cultures from this admission and his previous ER visit showed pansensitive Streptococcus pneumoniae. We narrowed his antibiotics to moxifloxacin and vancomycin, planning for a total for 14 days of IV vancomycin and Avelox. On 02/02, his WBC increased and his CXR showed worsening infiltrates. Primaxin was added back to cover for potential Pseudomonas as he had been intubated for several days. (4) Pulmonary infiltrates on CXR Status: Acute Hospital Course & Plan: The patient developed worsening upper lobe infiltrates on CXR on 02/01. Primaxin was added to cover Pseudomonas as noted above. He was also placed on BiPAP. He ultimately required reintubation as above. (5) Leukocytosis Status: Acute Hospital Course & Plan: The patient was noted to have had an elevated WBC fairly persistently back to 2014. However, his WBC was much higher on admission. The patient has a history of ALL and has been on Prograf. Dr. Beni Ann (Heme/Onc) requested a bone marrow biopsy, which was performed on 01/27. Results were negative for malignancy. (6) Hypokalemia Hospital Course & Plan: The patient received frequent supplementation with IV fluids and potassium riders. (7) DIC (disseminated intravascular coagulation) Status: Resolved Hospital Course & Plan: It did appear that he developed DIC. He did not have any bleeding or clotting during his stay. We elected not to place him on prophylactic Lovenox initially (he did have SCDs in place), but he was later started on Lovenox for DVT prophylaxis. (8) Septic shock Status: Acute Hospital Course & Plan: He did present with fever of 103F. His blood cultures were positive for S. pneumoniae. His lactate and WBC were elevated. He did require vasopressor support with norepinephrine and fluid resuscitation. He was also started on stress dose hydrocortisone. He was weaned off vasopressor support. His steroids were weaned as tolerated. He did develop hypotension after receiving a dose of Dilaudid on 02/04. This was felt to be due to recent diuresis in combination with the Diluadid. He was placed on a very small dose of Levaphed while receiving an IV bolus of fluids. (9) Acute renal failure Status: Resolved Hospital Course & Plan: Resolved with IV fluids. 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 A level was in therapeutic range. (11) Acute lymphoblastic leukemia (ALL) in remission Status: Chronic Hospital Course & Plan: His bone marrow biopsy from 01/27 was negative for cancer. Departure Weight (Pounds): 152 Weight (Ounces): 6.0 Please see complete records for lab reports. Too numerous to list. [facility] *LIVE* [address] [place] [address] AAKASH KAPOOR M.D., DIRECTOR OF LABORATORY SERVICES TANG POTTER M.D., PATHOLOGIST RUN DATE: 01/24/18 Specimen Inquiry Report PAGE 1 RUN TIME: 08 PATIENT: JAC MARTINEZ ACCT: [id number] LOC: ICU U : [id number] AGE/SX: 32/M ROOM: [facility] REG : 01/21/[address]: CAYLA PANDA DO : 1985 BED: 260 DIS : STATUS: ADM IN TLOC: SPEC #: [id number] TEENA: 01/21/18-7 STATUS: COMP REQ #: [id number] RECD: 01/21/18-[address]: SUNITA DANGELO MD SOURCE: BLOOD PER ENTR: 01/21/18-[address] [facility] [address]: BREN GRANT [facility] ORDERED: BCGS, CULT BLOOD Procedure Result Verified BLOOD CULTURE GRAM STAIN Final 01/21/18-2343 AEROBIC BOTTLE POSITIVE GRAM POSITIVE COCCI POSITIVE BLOOD CULTURE GRAM STAIN REPORT CALLED TO: NILSA LOCKE, ICU DATE/TIME REPORT CALLED: 01/21/18 @ 2343 CALLED BY: RISSA DRAKE BLOOD CULTURE Final 01/24/18-0806 Organism 1 STREPTOCOCCUS PNEUMONIAE GROWTH PRESENT IN BOTH THE AEROBIC AND ANAEROBIC BOTTLES SEE #476 FOR SUSCEPTIBILITIES GERARDO BOTTLE POSITIVE GRAM POSITIVE COCCI IN CHAINS PHONE GLADYS ELIZABETH R.N. DATE D/T 01/22/2018@3794 TECH:LIN END OF REPORT Imaging Please see complete records for radiologic reports. Too numerous to list. EKG FACILITY: [facility] PATIENT NAME: JAC MARTINEZ : [id number] MR: [id number] V: [id number] EXAM DATE: ORDERING PHYSICIAN: SUNITA DANGELO TECHNOLOGIST: HC Test Reason : TACHY Blood Pressure : / mmHG Vent. Rate : 123 BPM Atrial Rate : 123 BPM P-R Int : 130 ms QRS Dur : 082 ms QT Int : 344 ms P-R-T Axes : 049 -34 002 degrees QTc Int : 492 ms Sinus tachycardia Left axis deviation Moderate voltage criteria for LVH, may be normal variant Abnormal ECG When compared with ECG of 30-OCT-2015 08:44, T wave inversion now evident in Inferior leads Confirmed by CAYLA PANDA ([id number]) on 01/22/2018 6:38:46 AM Referred By: ANTOLIN Confirmed By:CAYLA PANDA [id number] T: OSMEL/ Condition: Critical Discharge: Other Facility Time Spent: < 30 min Discharge Instructions Home Meds Active Scripts Tacrolimus (TACROLIMUS) 5 Mg Capsule, 5 MG PO DAILY for 90 Days, #90 CAPSULE 3 Refills Prov:DENISSE WILSON COPY ROOM TECHNICIAN-BC, ONC 12/15/17 Pantoprazole Sodium (PANTOPRAZOLE SODIUM) 40 Mg Tablet.dr, 1 TAB PO QDAY for 90 Days, #90 TAB 3 Refills Take 1 tab 30 mins before breakfast. Prov:DENISSE WILSON COPY ROOM TECHNICIAN-BC, ONC 12/15/17 Reported Medications Gabapentin (GABAPENTIN) 300 Mg Capsule, 300 MG PO QDAY, CAPSULE 02/24/18 Acyclovir (ACYCLOVIR) 800 Mg Tablet, 800 MG PO BID, #10 TAB 02/24/18 Special Instructions: The patient will be transferred to [facility] to the hospitalist libertad. Venous Thromboembolism Antithrombotics Is Pt On Any Antithrombotics?: No ORAL JACINTO MD February 26, 2018 19:56
== END 2018-02-04 18:39 | disposition short-term general hospital (02) | DRG 870 ==
LOC: ER 09:57 → ICU 11:14
PROVIDERS: ADMIT Family Medicine; ATTEND Family Medicine
PROC: 02HV33Z Insertion of Infusion Device into Superior Vena Cava, Percutaneous Approach (ICD-10-PCS; 2018-01-21)
PROC: 5A1955Z Respiratory Ventilation, Greater than 96 Consecutive Hours (ICD-10-PCS; 2018-01-24)
PROC: 0BH17EZ Insertion of Endotracheal Airway into Trachea, Via Natural or Artificial Opening (ICD-10-PCS; 2018-01-24)
PROC: 07DR3ZX Extraction of Iliac Bone Marrow, Percutaneous Approach, Diagnostic (ICD-10-PCS; principal; 2018-01-27)
DX: A40.3 Sepsis due to Streptococcus pneumoniae (principal); R65.21 Severe sepsis with septic shock; G00.1 Pneumococcal meningitis; D65 Disseminated intravascular coagulation [defibrination syndrome]; J80 Acute respiratory distress syndrome; N17.9 Acute kidney failure, unspecified; C91.01 Acute lymphoblastic leukemia, in remission; E87.2 Acidosis; D89.811 Chronic graft-versus-host disease; E83.51 Hypocalcemia; E87.6 Hypokalemia; Z88.0 Allergy status to penicillin; Z88.8 Allergy status to other drugs, medicaments and biological substances
CPT/HCPCS: 36415; 36416; 36600; 70450; 71045; 71260; 74022; 74177; 80197; 80202; 80500; 81001; 82040; 82247; 82310; 82374; 82435; 82565; 82803; 82947; 82948; 83605; 83690; 83735; 84075; 84132; 84155; 84295; 84450; 84460; 84484; 84520; 85025; 85060; 85097; 85379; 85384; 85610; 85730; 86644; 86645; 86790; 87040; 87045; 87088; 87205; 87324; 87449; 88184; 88185; 88189; 88305; 88311; 88313; 88341; 93005; 94002; 94003; 94640; 94660; 94667; 94770; 96361; 96365; 96366; 96367; 96375; 97162; 97163; 97167; 99285; 99291; C1758; C9113; J0131; J0330; J0610; J0692; J0743; J1170; J1642; J1644; J1650; J1720; J1885; J1940; J2001; J2060; J2250; J2270; J2280; J2405; J2704; J2795; J3010; J3370; J3475; J3480; J3490; J7030; J7040; J7050; J7060; J7613; J7614; Q9967

== ENCOUNTER → 2018-02-19 | Outpatient (CLI) | payer OTHER ==
[2018-01-22 10:27] VITALS: BMI 24.5
--- NOTE | 2018-02-19 13:08 | RADIOLOGY IMAGING REPORT ---
FACILITY: [facility] PATIENT NAME: Lucio Lloyd : 1985 MR: [id number] V: [id number] EXAM DATE: ORDERING PHYSICIAN: MARIZOL TAYLOR TECHNOLOGIST: Location: [facility] Patient: Lucio Lloyd : 1985 Visit/Account:[id number] Date of Sevice: 02/19/2018 2 VIEWS CHEST INDICATION: Cough and shortness of breath. COMPARISON: 02/04/2018. FINDINGS: Cardiomediastinal silhouette and pulmonary vessels within normal limits. Significant improvement and aeration to both lungs. The right lung does show some residual scarring. Small amount scarring seen left lateral upper lobe. No definitive areas of consolidation. There is no pneumothorax or pleural effusion. No discrete nodule. There is a small tubular structure overlying the left lung which may be residual catheter segment and this is unchanged. Upper abdomen is unremarkable. No acute bony abnormality. Multiple stable compressions of thoracic and lumbar vertebral bodies at th e thoracolumbar junction. This is unchanged from the CT scan 01/21/2018. No acute bony abnormality. IMPRESSION: 1. Improved chest. There is some residual scarring in both lungs, right greater than left. No discret e focal infiltrate. Report Dictated By: Lizandro Olivo at 02/19/2018 1:01 PM Report E-Signed By: Lizandro Olivo at 02/19/2018 1:04 PM [id number]
== END ==
LOC: RAD 11:41
PROVIDERS: ATTEND Physician Assistant
DX: J15.9 Unspecified bacterial pneumonia (principal)
CPT/HCPCS: 71046

== ENCOUNTER 2018-02-24 15:12 | Emergency (ER) | payer OTHER ==
[2018-01-22 10:27] VITALS: Wt 52.2 kg
--- NOTE | 2018-02-24 15:18 | ER Report ---
History and Physical Time Seen By MD: 15:17 HPI/ROS CHIEF COMPLAINT: Chest pain, shortness of breath HISTORY OF PRESENT ILLNESS: 32-year-old male patient presents to emergency room with complaint of chest pain shortness of breath. Patient states that he's been having problems for the last several days. Patient was recently discharged from the hospital after spending the past month hospitalize. He was hospitalized with a likely pneumonia, which worsened, he needed into the patient and ultimately was transferred to [place] for more intensive treatment. Patient has been home approximately one week, he states that he has lots of trouble getting up walking around, states that his feet hurt. Also states that he has been having chest pain, seems to be worse in the morning and especially worse when he takes a deep breath. Patient states that he gone to physical therapy today, had some exercises, during which his heart rate shot up and he was having difficult time catching his breath. Patient was instructed by his physician's office, the emergency room for further evaluation. Patient denies decrease in his oxygen, which she believes is likely secondary to being on oxygen. REVIEW OF SYSTEMS: Respiratory: As noted above Cardiovascular: As noted above Gastrointestinal: No vomiting, no abdominal pain. Musculoskeletal: No back pain. Allergies: Coded Allergies: amphotericin B (Verified Allergy, Severe, ANAPHYLAXIS, 02/24/18) Penicillins (Verified Allergy, Mild, RASH, 02/24/18) A CHILD AGE 4 Home Meds Active Scripts Tacrolimus (TACROLIMUS) 5 Mg Capsule, 5 MG PO DAILY for 90 Days, #90 CAPSULE 3 Refills Prov:DENISSE WILSON-BC, ONC 12/15/17 Pantoprazole Sodium (PANTOPRAZOLE SODIUM) 40 Mg Tablet.dr, 1 TAB PO QDAY for 90 Days, #90 TAB 3 Refills Take 1 tab 30 mins before breakfast. Prov:DENISSE WILSON INSURANCE PROFESSIONAL-BC, ONC 12/15/17 Reported Medications Gabapentin (GABAPENTIN) 300 Mg Capsule, 300 MG PO QDAY, CAPSULE 02/24/18 Acyclovir (ACYCLOVIR) 800 Mg Tablet, 800 MG PO BID, #10 TAB 02/24/18 Past Medical/Surgical History Patient has past medical history of migraines, pneumonia, reflux, fractures, back pain, post first graft, and mild, leukemia. Patient has surgical history of bone marrow transplant, teeth extraction, port placement 2. Reviewed Nurses Notes: Yes Hx Smoking: No Smoking Status: Never Smoker Exposure to Second Hand Smoke?: No Hx Substance Use Disorder: No Hx Alcohol Use: No Constitutional Vital Sign - Last 24 Hours 02/24/18 02/24/18 02/24/18 02/24/18 15:18 15:19 15:30 15:42 Temp 98.2 Pulse 123 118 Resp 20 18 B/P (MAP) 128/95 (106) 128/95 124/86 (99) Pulse Ox 94 99 O2 Delivery Room Air 02/24/18 02/24/18 02/24/18 02/24/18 16:00 16:12 16:30 16:42 Pulse 111 107 Resp 25 25 B/P (MAP) 114/85 (95) 123/83 (96) Pulse Ox 96 95 02/24/18 02/24/18 17:00 17:05 Pulse 116 Resp 24 B/P (MAP) 121/88 (99) Pulse Ox 95 Physical Exam General Appearance: The patient is alert, has no immediate need for airway protection and no current signs of toxicity. Respiratory: Chest is non tender, lungs are clear to auscultation. Cardiac: regular rhythm, patient is tachycardic. Gastrointestinal: Abdomen is soft and non tender, no masses, bowel sounds normal. Musculoskeletal: Neck: Neck is supple and non tender. Extremities have full range of motion and are non tender. Skin: No rashes or lesions. DIFFERENTIAL DIAGNOSIS: After history and physical exam differential diagnosis was considered for shortness of breath including but not limited to pulmonary infectious process, COPD, asthma, pulmonary embolus and congestive heart failure. Medical Decision Making Data Points Result Diagram: 02/24/18 1535 02/24/18 1535 Laboratory Hematology Test 02/24/18 15:35 Red Blood Count 3.45 M/uL (4.00-5.60) Mean Corpuscular Volume 91.0 fL (80.0-96.0) Mean Corpuscular Hemoglobin 30.6 pg (26.0-33.0) Mean Corpuscular Hemoglobin Concent 33.6 g/dL (32.0-36.0) Red Cell Distribution Width 15.9 % (11.5-14.5) Mean Platelet Volume 7.0 fL (7.2-11.1) Neutrophils (%) (Auto) 39.6 % (39.4-72.5) Lymphocytes (%) (Auto) 42.9 % (17.6-49.6) Monocytes (%) (Auto) 12.4 % (4.1-12.4) Eosinophils (%) (Auto) 4.2 % (0.4-6.7) Basophils (%) (Auto) 0.9 % (0.3-1.4) Nucleated RBC Relative Count (auto) 0.0 /100WBC Neutrophils # (Auto) 5.3 K/uL (2.0-7.4) Lymphocytes # (Auto) 5.8 K/uL (1.3-3.6) Monocytes # (Auto) 1.7 K/uL (0.3-1.0) Eosinophils # (Auto) 0.6 K/uL (0.0-0.5) Basophils # (Auto) 0.1 K/uL (0.0-0.1) Nucleated RBC Absolute Count (auto) 0.00 K/uL Peripheral Blood Smear Yes Y/N Sodium Level 140 mmol/L (137-145) Potassium Level 3.9 mmol/L (3.5-5.0) Chloride Level 99 mmol/L (98-107) Carbon Dioxide Level 22 mmol/L (22-30) Blood Urea Nitrogen 13 mg/dl (9-21) Creatinine 0.70 mg/dl (0.66-1.25) Glomerular Filtration Rate Calc > 60.0 Random Glucose 104 mg/dl (75-110) Calcium Level 10.3 mg/dl (8.4-10.2) Total Bilirubin 0.4 mg/dl (0.2-1.3) Aspartate Amino Transf (AST/SGOT) 19 U/L (0-35) Alanine Aminotransferase (ALT/SGPT) 31 U/L (0-56) Alkaline Phosphatase 212 U/L (0-126) Troponin I < 0.012 ng/ml Total Protein 8.7 gm/dl (6.3-8.2) Albumin 4.0 g/dl (3.5-5.0) Chemistry Test 02/24/18 15:35 White Blood Count 13.5 k/uL (4.5-11.0) Red Blood Count 3.45 M/uL (4.00-5.60) Hemoglobin 10.5 g/dL (14.0-18.0) Hematocrit 31.4 % (42.0-52.0) Mean Corpuscular Volume 91.0 fL (80.0-96.0) Mean Corpuscular Hemoglobin 30.6 pg (26.0-33.0) Mean Corpuscular Hemoglobin Concent 33.6 g/dL (32.0-36.0) Red Cell Distribution Width 15.9 % (11.5-14.5) Platelet Count 688 K/uL (150-450) Mean Platelet Volume 7.0 fL (7.2-11.1) Neutrophils (%) (Auto) 39.6 % (39.4-72.5) Lymphocytes (%) (Auto) 42.9 % (17.6-49.6) Monocytes (%) (Auto) 12.4 % (4.1-12.4) Eosinophils (%) (Auto) 4.2 % (0.4-6.7) Basophils (%) (Auto) 0.9 % (0.3-1.4) Nucleated RBC Relative Count (auto) 0.0 /100WBC Neutrophils # (Auto) 5.3 K/uL (2.0-7.4) Lymphocytes # (Auto) 5.8 K/uL (1.3-3.6) Monocytes # (Auto) 1.7 K/uL (0.3-1.0) Eosinophils # (Auto) 0.6 K/uL (0.0-0.5) Basophils # (Auto) 0.1 K/uL (0.0-0.1) Nucleated RBC Absolute Count (auto) 0.00 K/uL Peripheral Blood Smear Yes Y/N Glomerular Filtration Rate Calc > 60.0 Calcium Level 10.3 mg/dl (8.4-10.2) Total Bilirubin 0.4 mg/dl (0.2-1.3) Aspartate Amino Transf (AST/SGOT) 19 U/L (0-35) Alanine Aminotransferase (ALT/SGPT) 31 U/L (0-56) Alkaline Phosphatase 212 U/L (0-126) Troponin I < 0.012 ng/ml Total Protein 8.7 gm/dl (6.3-8.2) Albumin 4.0 g/dl (3.5-5.0) EKG/Imaging Imaging CTA CHEST WW/O CNTR (PULM ANG) Provided history: chest pain Additional pertinent history: none TECHNIQUE: Pulmonary embolus protocol - Thin-slice axial imaging of the chest was performed during maximal pulmonary arterial opacification with intravenous nonionic iodinated contrast. 3D coronal slab MIPs and 2D reconstructions in the coronal and sagittal planes were performed to aid in pulmonary embolus detection. Compensation Analyst images have been stored on PACS. EKG gating: no Contrast: 75 ml Isovue 370 One of the following dose optimization techniques was utilized in the performance of this exam: Automated exposure control; adjustment of the mA and/ or kV according to the patient's size; or use of an iterative reconstruction technique. Specific details can be referenced in the facility's radiology CT exam operational policy. COMPARISON STUDIES: CT 01/21/18 FINDINGS: Angiographic Findings: Pulmonary arteries: There are no filling defects in the main, right, left, lobar , segmental or visualized sub-segmental branches of the pulmonary arterial system Thoracic aorta: negative. Additional non-angiographic findings: Lungs / pleura / foreign: There is a persisting small right pleural effusion, unchanged in volume. The pleural surfaces are mildly thickened and shaggy in appearance but there is no apparent loculation. There are coarse increased markings in the posterior right lower lobe with a swirling pattern likely indicating benign round atelectasis. Peripheral pleural- parenchymal changes of the right upper lobe are stable. Potential minor loculation of the lateral margin of the right major fissure noted but think it does communicate with the posterior pleural space. The left, small effusion is resolved in the interim. Minor subjacent atelectasis is clearing. Both lungs demonstrate moderate patchy groundglass attenuation, nonspecific. No new confluent infiltrate. Airways remain widely patent. Lower neck: negative Mediastinum: negative Heart / pericardium: negative Other Vessels: negative Body wall: negative Upper abdomen: negative Lymph nodes: negative Bones: Very heterogenous pattern of lucency and sclerosis throughout the bones of the rest spine, the ribs, scapula, sternum and manubrium. Stable compression deformities lower T-spine. No interim fracture. IMPRESSION: 1. No CT evidence of acute pulmonary embolism. 2. Stable changes right lung include small right effusion and pleural- parenchymal changes in the lung base and upper lung. No progressive infiltrate. No progressive loculation of the pleural effusion. Empyema not excluded. 2. Interim clearing of the left pleural effusion and suggests atelectasis. 4. Appearance of the bones raises concern for a diffuse neoplastic process, possibly myeloma. Correlate clinically. Report Dictated By: Benedict Esposito MD at 02/24/2018 4:13 PM Report E-Signed By: Benedict Esposito MD at 02/24/2018 4:25 PM ED Course/Re-evaluation ED Course Patient was admitted to an exam room, history and physical were obtained. Differential diagnoses were considered. On examination lungs are clear, heart is regular although tachycardic, very between 105 to 115. A CBC, CMP were obtained. A CT pulmonary angiogram was done as well. The labs were fairly unremarkable, patient had a white cell count of 13.5, no left shift. Patient did have lab work that was done on February 19, at that time his white count was 13.4. CT scan showed no pulmonary emboli, there is some concern about the loculated fluid in the right lower lobe. Concern was possible empyema. I discussed case with Dr. Shoemaker, hospitalist, who felt the patient did not have a need for admission. He felt patient could be continued to be monitored as an outpatient and recommended a repeat imaging done in one week. I discussed this with the patient and his family. They verbalized agreement. They're given strict instructions to return to emergency room if condition worsens even slightly. They verbalized understanding and agreement. We'll go ahead and discharge him home at this time. He is to follow-up with his primary care provider on March 05 as previous scheduled. Decision to Disposition Date: February 24, 2018 Decision to Disposition Time: 17:20 Depart Departure Latest Vital Signs Vital Signs Date Time Temp Pulse Resp B/P (MAP) Pulse Ox O2 Delivery O2 Flow Rate FiO2 02/24/18 17:05 116 24 95 02/24/18 17:00 121/88 (99) 02/24/18 15:19 98.2 Room Air Core Temperature (Celsius): 36.2 Impression: Primary Impression: Tachycardia Additional Impression: Tachypnea Condition: Improved Disposition: HOME OR SELF-CARE Referrals: BREN GRANT MD (PCP) Patient Instructions: Tachycardia (ED) Additional Instructions: Increase fluid intake. Get plenty of rest. Follow up with Dr. Tariq's office as scheduled. Return to the ER if condition worsens. Talk with them about a bone scan; this could be related to osteopenia as you had negative bone marrow biopsy. Continue with current medications. Problem Qualifiers CHICO CHÁVEZ February 24, 2018 15:18
[2018-02-24] MEDS ORDERED: GABA-549 PO (15:27)
[2018-02-24] MEDS ORDERED: ACYC800T99 PO (15:27)
[2018-02-24] MEDS ORDERED: NS 0.9% 150 ML BAG 150 ML ONE (15:37)
[2018-02-24] MEDS ORDERED: IOPAMIDOL 76% 75 ML INFUS BTL 75 ML ONE (15:37)
--- NOTE | 2018-02-24 15:41 | EKG ---
[place]AC[place] [facility] [place] NAME: JAC MARTINEZ : [id number] MR: [id number] V: [id number] EXAM DATE: ORDERING PHYSICIAN: CHICO CHÁVEZ TECHNOLOGIST: GLADYS Test Reason : CP Blood Pressure : / mmHG Vent. Rate : 116 BPM Atrial Rate : 116 BPM P-R Int : 114 ms QRS Dur : 080 ms QT Int : 344 ms P-R-T Axes : 054 -40 032 degrees QTc Int : 478 ms Sinus tachycardia Left axis deviation Voltage criteria for left ventricular hypertrophy Abnormal ECG When compared with ECG of 27-JAN-2018 08:45, Vent. rate has increased BY 49 BPM Nonspecific T wave abnormality has replaced inverted T waves in Inferior leads Nonspecific T wave abnormality no longer evident in Lateral leads Confirmed by CAYLA PANDA ([id number]) on 02/24/2018 8:04:50 PM Referred By: GWEN Confirmed By:CAYLA PANDA
[2018-02-24 15:44] LABS: PLATELET COUNT, AUTOMATED 688 K/uL (150-450)
--- NOTE | 2018-02-24 16:30 | RADIOLOGY IMAGING REPORT ---
FACILITY: [facility] - [place] PATIENT NAME: Lucio Lloyd : 1985 MR: [id number] V: [id number] EXAM DATE: ORDERING PHYSICIAN: CHICO CHÁVEZ TECHNOLOGIST: Location: [facility] Patient: Lucio Lloyd : 1985 Visit/Account:[id number] Date of Sevice: 02/24/2018 CTA CHEST WW/O CNTR (PULM ANG) Provided history: chest pain Additional pertinent history: none TECHNIQUE: Pulmonary embolus protocol - Thin-slice axial imaging of the chest was performed during maximal pulmo nary arterial opacification with intravenous nonionic iodinated contrast. 3D coronal slab MIPs and 2D reconstructions in the coronal and sagittal planes were performed to aid in pulmonary embolus detect ion. Ward Supervisor images have been stored on PACS. EKG gating: no Contrast: 75 ml Isovue 370 One of the following dose optimization techniques was utilized in the performance of this exam: Autom ated exposure control; adjustment of the mA and/or kV according to the patient's size; or use of an i terative reconstruction technique. Specific details can be referenced in the facility's radiology C T exam operational policy. COMPARISON STUDIES: CT 01/21/18 FINDINGS: Angiographic Findings: Pulmonary arteries: There are no filling defects in the main, right, left, lobar, segmental or visual ized sub-segmental branches of the pulmonary arterial system Thoracic aorta: negative. Additional non-angiographic findings: Lungs / pleura / foreign: There is a persisting small right pleural effusion, unchanged in volume. The pleural surfaces are mildly thickened and shaggy in appearance but there is no apparent loculation. There are coarse increased markings in the posterior right lower lobe with a swirling pattern likely indicating benign round atelectasis. Peripheral pleural-parenchymal changes of the right upper lobe a re stable. Potential minor loculation of the lateral margin of the right major fissure noted but thin k it does communicate with the posterior pleural space. The left, small effusion is resolved in the interim. Minor subjacent atelectasis is clearing. Both lungs demonstrate moderate patchy groundglass attenuation, nonspecific. No new confluent infiltr ate. Airways remain widely patent. Lower neck: negative Mediastinum: negative Heart / pericardium: negative Other Vessels: negative Body wall: negative Upper abdomen: negative Lymph nodes: negative Bones: Very heterogenous pattern of lucency and sclerosis throughout the bones of the rest spine, the ribs, scapula, sternum and manubrium. Stable compression deformities lower T-spine. No interim fract ure. IMPRESSION: 1. No CT evidence of acute pulmonary embolism. 2. Stable changes right lung include small right effusion and pleural-parenchymal changes in the lung base and upper lung. No progressive infiltrate. No progressive loculation of the pleural effusion. E mpyema not excluded. 2. Interim clearing of the left pleural effusion and suggests atelectasis. 4. Appearance of the bones raises concern for a diffuse neoplastic process, possibly myeloma. Correla te clinically. Report Dictated By: Benedict Esposito MD at 02/24/2018 4:13 PM Report E-Signed By: Benedict Esposito MD at 02/24/2018 4:25 PM WSN:[id number]
[2018-02-24 17:00] VITALS: BP 121/88
== END 2018-02-24 17:28 | disposition home or self-care (01) ==
LOC: ER 15:22
DX: R00.0 Tachycardia, unspecified (principal); R06.82 Tachypnea, not elsewhere classified
CPT/HCPCS: 71275; 84484; 85025; 93005; 99283; Q9967; 82040; 82247; 82310; 82374; 82435; 82565; 82947; 84075; 84132; 84155; 84295; 84450; 84460; 84520

== ENCOUNTER 2018-05-07 09:00 | Outpatient (RCR) | payer OTHER ==
[2018-01-22 10:27] VITALS: BMI 24.5
--- NOTE | 2018-02-18 15:45 | PT INITIAL EVALUATION ---
MEDICAL DIAGNOSIS: Generalized Weakness TREATMENT DIAGNOSIS: Generalized Weakness, Neuropathy, Generalized Deconditioning DATE OF ONSET: 02/18/18 SUBJECTIVE: Patient is a 32-year-old male presenting to physical therapy following prolonged hospitalization after admission and ICU placement with sepsis on 01/20/18. Visit was further complicated with development of pneumonia with total visit lasting just under 5 weeks with 4 spent in ICU care with intubation. Pt has past medical history significant for acute lymphocytic leukemia and is status post bone marrow transplant approximately 12 years ago. Following discharge from the hospital on 02/16/28 pt has extensive global weakness and deconditioning with associated decreased mobility and decreased function with ADL's. Additionally pt reports back pain in the mid thoracic spine and neck rated at 4-5/10 which increases with upright sitting or standing. Pt also has B pain in feet with numbness and decreased sensation in toes and ball of feet rated as 5/10 currently. Foot pain increases to 7/10 with walking. Pt reports that when he was in the ICU his feet were swollen and purple and have since returned to normal size but have increased sensitivity throughout. Pt's is present throughout evaluation. 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 OBJECTIVE: Pt presents to PT in wheelchair, pt is very thin. Pt has dry and peeling skin along feet and ankles. Posture: Forward trunk lean at waist with standing and elevated B shoulder with forward head. ROM: UE ROM: WFL LE ROM: Ankle: PF: AROM: L, 45, R 32, AAROM: L 50, R 60, DF: AROM: L -3, R -11 , AAROM: L 8, R 7. Strength: LE MMT: Hip: Flexion: B 3+/5, Ext: L 4/5, R 3+/5, Abd: B 3+/5, Add: B 4/5. Knee: Flexion: B 4-/5, Ext: L 4-/5, R 4/5. Ankle: PF: L 2/5, R 2+/5, DF: L 2+/5, R 3/5. UE MMT: Shoulder: flexion: L 4/5, R 3+/5, Ext: B 4/5, ER: B 3+/5, IR B 4/5, Abd : B 3+/5. Elbow: Flexion/Ext: B 4-/5. Sensation: Pt has hypersensitivity with palpation of B feet from the ankle down. Pt has decreased-absent sensation on the base of B 1st digits, the R ball of foot, B digits 2 & 3 and R 5th toe. Mobility: 5 times sit<>stand: 36 seconds with B UE support for transfer. Pt unable to achieve transfer without UE support Gait: 6 Min Walk Test: 2 3/4 bxec=226.25 sozy=012.3 meters Other Objective Findings: Lower Extremity Functional Scale (LEFS): 8/80. ASSESSMENT: Pt shows signs and symptoms consistent with global deconditioning and generalized weakness consistent with prolonged immobilization. Physical therapy is indicated for this patient to address the above listed deficits to return pt to prior level of function for improved motility with ADL's, occupational and recreational activities. Short Term Goals In 3 weeks pt will increase LEFS to >20/80 for improved functional mobility with ADL's. In 3 weeks pt will improve 6 minute walk to >4 laps for improved functional mobility with ADL's and ambulation. In 6 weeks pt will increase B LE and UE strength to > 4/5 for improved function with ADL's and occupational activities. In 6 weeks pt will improve 5 times sit<>stand to under 10 seconds without use of B UE. In 6 weeks pt will improve LEFS to >40/80 for improved functional mobility with ADL's. 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 Improve functional strength and mobility. PLAN: Patient to be seen for Manual Therapy/STM/MET Strengthening/condition Ice/Heat Range of Motion Spinal Stabilization Ultrasound Work Hardening/Cond Stretching Iontophoresis Neuromuscular Re-ed Closed Chain Program Electrical Stim Posture/Body mechanics Gait Trg/Balance Trg Biofeedback Home Exercise Program Mech./Manual Traction Therapeutic Activities Pelvic Floor 3x/Week for 6 Weeks If you have any questions, comments, or concerns about this report or plan, please contact me at . Thank you, Eleanor Quinones, PT, DPT, CLT MTDSulaiman
--- NOTE | 2018-03-12 12:30 | PT PLAN OF CARE ---
Physician: Kurt Phelps MD Patient is being seen: 3x/Week Therapist: Eleanor Quinones, PT, DPT, CLT Medical Diagnosis: Generalized Weakness Treatment Diagnosis: Generalized Weakness, Neuropathy, Generalized Deconditioning Date of Onset: 02/18/18 Date of Initial Evaluation: 02/18/18 Date patient was last seen: 03/12/18 Number of treatments: 10 Number of cancellations/No shows: 0 INTERVENTIONS: Manual Therapy/STM/MET Strengthening/condition Ice/Heat Range of Motion Spinal Stabilization Ultrasound Work Hardening/Cond Stretching Iontophoresis Neuromuscular Re-ed Closed Chain Program Electrical Stim Posture/Body mechanics Gait Trg/Balance Trg Biofeedback Home Exercise Program Mech./Manual Traction Therapeutic Activities Pelvic Floor GOALS: In 3 weeks pt will increase LEFS to >20/80 for improved functional mobility with ADL's. MET In 3 weeks pt will improve 6 minute walk to >4 laps for improved functional mobility with ADL's and ambulation. MET In 6 weeks pt will increase B LE and UE strength to > 4/5 for improved function with ADL's and occupational activities. In 6 weeks pt will improve 5 times sit<>stand to under 10 seconds without use of B UE. 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 Improve functional strength and mobility. Status of Patient's Goals: 2/4 MET, 2/4 In Progress Patient Compliance: Good Prognosis: Good Reasons for continuing therapy: Lucio shows great progress with improved functional strength and ambulation. Pt is able to perform far more ADL's without restrictions or with increased ease. Hypersensitivity is diminished B on the feet with only lingering symptoms on the R digits 1-3. Additionally pt shows lingering weakness in HS and anterior tibial muscles. Further PT to focus on these lingering deficits as well as focus on return to work functions. Posture: Forward trunk lean at waist with standing and elevated B shoulder with forward head. ROM: UE ROM: WFL LE ROM: Ankle: PF: AROM: L, 50, R 42, AAROM: L 53, R 55, DF: AROM: L 3, R 2, AAROM: L 8, R 8. Strength: LE MMT: Hip: Flexion: B 4-/5, Ext: B 4/5, Abd: B 4+/5, Add: B 4/5. Knee: Flexion: B 4-/5, Ext: B 4+/5. Ankle: PF: B 4/5, DF: B 3+/5. UE MMT: Shoulder: flexion: L 4/5, R 3+/5, Ext: B 4/5, ER: B 3+/5, IR B 4/5, Abd : B 3+/5. Elbow: Flexion/Ext: B 4-/5. Mobility: 5 times sit<>stand: 10 seconds without UE support Gait: 6 Min Walk Test: 8.3 gsdo=8864.3 itvz=891.6 meters Other Objective Findings: Lower Extremity Functional Scale (LEFS): 37/80. If you have any questions or concerns, please feel free to contact me at [phone]. Thank you, Eleanor Quinones, PT, DPT, CLT HEMAL
--- NOTE | 2018-04-07 11:05 | PT PLAN OF CARE ---
Physician: Kurt Phelps MD Patient is being seen: 3x/Week Therapist: Eleanor Quinones, PT, DPT, CLT Medical Diagnosis: Generalized Weakness Treatment Diagnosis: Generalized Weakness, Neuropathy, Generalized Deconditioning Date of Onset: 02/18/18 Date of Initial Evaluation: 02/18/18 Date patient was last seen: 04/07/18 Number of treatments: 21 Number of cancellations/No shows: 0 INTERVENTIONS: Manual Therapy/STM/MET Strengthening/condition Ice/Heat Range of Motion Spinal Stabilization Ultrasound Work Hardening/Cond Stretching Iontophoresis Neuromuscular Re-ed Closed Chain Program Electrical Stim Posture/Body mechanics Gait Trg/Balance Trg Biofeedback Home Exercise Program Mech./Manual Traction Therapeutic Activities Pelvic Floor GOALS: In 3 weeks pt will increase LEFS to >20/80 for improved functional mobility with ADL's. MET In 3 weeks pt will improve 6 minute walk to >4 laps for improved functional mobility with ADL's and ambulation. MET In 6 weeks pt will increase B LE and UE strength to > 4/5 for improved function with ADL's and occupational activities. MET In 6 weeks pt will improve 5 times sit<>stand to under 10 seconds without use of B UE. MET In 7 weeks pt will be able to perform all work related duties as outlined per employer for return to work. 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 Improve functional strength and mobility. Status of Patient's Goals: 4/5 MET, 1/5 In Progress Patient Compliance: Good Prognosis: Good Reasons for continuing therapy: Lucio shows excellent progress with strengthening and endurance. HR response shows improvements with gradual warm up and cool down with increased resistance while maintaining good oxygen saturation. Pt shows progress with transition to return to work status with lingering deficits in strength as well as muscular fatigue. Further PT is indicated for this patient for return to occupational and recreational ADL's. Posture: Forward trunk lean at waist with standing and elevated B shoulder with forward head. ROM: UE ROM: WFL LE ROM: Ankle: PF: AROM: L, 50, R 42, AAROM: L 53, R 55, DF: AROM: L 3, R 2, AAROM: L 8, R 8. Strength: LE MMT: Hip: Flexion: B 4/5, Ext: B 4+/5, Abd: B 5/5, Add: B 5/5. Knee: Flexion: B 5/5, Ext: B 5/5. Ankle: PF: B 5/5, DF: B 4+/5. UE MMT: All motions 5/5 excluding B shoulder ER at 4+/5. Mobility: 5 times sit<>stand: 6 seconds without UE support Gait: 6 Min Walk Test: 8.3 mhdw=3128.3 nrql=724.6 meters Other Objective Findings: Lower Extremity Functional Scale (LEFS): 60/80. If you have any questions or concerns, please feel free to contact me at . Thank you, Eleanor Quinones, PT, DPT, CLT MTDD
--- NOTE | 2018-05-05 09:56 | PT PLAN OF CARE ---
Physician: Kurt Phelps MD Patient is being seen: 3x/Week Therapist: Eleanor Quinones, PT, DPT, CLT Medical Diagnosis: Generalized Weakness Treatment Diagnosis: Generalized Weakness, Neuropathy, Generalized Deconditioning Date of Onset: 02/18/18 Date of Initial Evaluation: 02/18/18 Date patient was last seen: 05/05/18 Number of treatments: 31 Number of cancellations/No shows: 0 INTERVENTIONS: Manual Therapy/STM/MET Strengthening/condition Ice/Heat Range of Motion Spinal Stabilization Ultrasound Work Hardening/Cond Stretching Iontophoresis Neuromuscular Re-ed Closed Chain Program Electrical Stim Posture/Body mechanics Gait Trg/Balance Trg Biofeedback Home Exercise Program Mech./Manual Traction Therapeutic Activities Pelvic Floor GOALS: In 3 weeks pt will increase LEFS to >20/80 for improved functional mobility with ADL's. MET In 3 weeks pt will improve 6 minute walk to >4 laps for improved functional mobility with ADL's and ambulation. MET In 6 weeks pt will increase B LE and UE strength to > 4/5 for improved function with ADL's and occupational activities. MET In 6 weeks pt will improve 5 times sit<>stand to under 10 seconds without use of B UE. MET In 7 weeks pt will be able to perform all work related duties as outlined per employer for return to work. 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 Improve functional strength and mobility. Status of Patient's Goals: 4/5 MET, 1/5 In Progress Patient Compliance: Good Prognosis: Good Reasons for continuing therapy: Lucio shows good progress with aerobic exercise with improved heart rate response. Power type activities remain to trigger abnormal response, but pt is able to increase speed and strength gradually while maintaining equal HR response. Pt has contacted employer for scheduling of return to work testing and at this time feels confident in abilities to perform work related duties. Pt is to continue with PT until start of employment to continue with further strengthening and endurance while monitoring HR response for safety. ROM: UE ROM: WFL LE ROM: Ankle: PF: AROM: L, 50, R 42, AAROM: L 53, R 55, DF: AROM: L 3, R 2, AAROM: L 8, R 8. Strength: LE MMT: Hip: Flexion: B 4+/5, Ext: B 5/5, Abd: R 02/27, L 5-/5, Add: B . Knee: Flexion: B 02/27, Ext: B 02/27. Ankle: PF: B 02/27, DF: B 02/27. UE MMT: All motions 02/27 Mobility: 5 times sit<>stand: 6 seconds without UE support Gait: 6 Min Walk Test: 8.3 tciu=2312.3 iojz=139.6 meters Other Objective Findings: Lower Extremity Functional Scale (LEFS): 79/80. If you have any questions or concerns, please feel free to contact me at . Thank you, Eleanor Quinones, PT, DPT, CLT MTDD
[~2018-05-07 09:00] MED LIST changes: +ACYC800T99 PO; +GABA-549 PO
== END 2018-05-07 18:00 | disposition home or self-care (01) ==
LOC: PT 09:00
PROVIDERS: ATTEND Internal Medicine Hematology
DX: M62.81 Muscle weakness (generalized) (principal); G62.9 Polyneuropathy, unspecified; Z86.19 Personal history of other infectious and parasitic diseases; Z85.6 Personal history of leukemia; M54.5 Low back pain; M54.2 Cervicalgia
CPT/HCPCS: 97163

== ENCOUNTER → 2018-05-25 | Outpatient (CLI) | payer OTHER ==
[2018-01-22 10:27] VITALS: BMI 24.5
== END ==
LOC: SPU 08:00 → LAB 13:48 → SPU 07-19 15:17
PROVIDERS: ATTEND Internal Medicine Hematology
DX: C91.10 Chronic lymphocytic leukemia of B-cell type not having achieved remission (principal); M85.80 Other specified disorders of bone density and structure, unspecified site
CPT/HCPCS: 36415; 82306; 82565

== ENCOUNTER → 2018-05-28 | Outpatient (CLI) | payer OTHER ==
[2018-01-22 10:27] VITALS: BMI 24.5
[~2018-05-28] MED LIST changes: +GADOBENATE 529MG/1ML 15ML VIAL IVP ONE
--- NOTE | 2018-05-28 09:36 | RADIOLOGY IMAGING REPORT ---
FACILITY: [facility] [place] PATIENT NAME: Lucio Lloyd : 1985 MR: [id number] V: [id number] EXAM DATE: ORDERING PHYSICIAN: BREN GRANT TECHNOLOGIST: Location: [facility] [place] Patient: Lucio Lloyd : 1985 Visit/Account:[id number] Date of Sevice: 05/28/2018 Single view of the orbits INDICATION: Pre-MRI. Evaluate for radiopaque foreign body. COMPARISON: None available. FINDINGS: Single Diggs' view was obtained of the skull. No evidence of radiopaque foreign body over lying the bilateral orbits. Rightward nasal septal deviation. Paranasal sinuses and mastoid air abundio ls are well aerated. No acute osseous abnormality identified. IMPRESSION: No evidence of radiopaque foreign body overlying the orbits. Report Dictated By: Lamin Hinkle MD at 05/28/2018 9:30 AM Report E-Signed By: Lamin Hinkle MD at 05/28/2018 9:32 AM WSN:[email or web address]
--- NOTE | 2018-05-28 11:14 | RADIOLOGY IMAGING REPORT ---
FACILITY: [facility] [place] PATIENT NAME: Lucio Lloyd : 1985 MR: [id number] V: [id number] EXAM DATE: ORDERING PHYSICIAN: BREN GRANT TECHNOLOGIST: Location: [facility] Patient: Lucio Lloyd : 1985 Visit/Account:[id number] Date of Sevice: 05/28/2018 Study: MRI lumbar spine without and with gadolinium contrast. Indication:Low back pain Comparison study:None Technique:Multiplanar MRI sequences were obtained through the lumbar spine without and with the use o f gadolinium contrast. Contrast utilized: 15 mL MultiHance Findings:The examination demonstrates the presence of normal alignment of the lumbar vertebrae. There are compression fractures of the T12 and L2 vertebrae noted. There is no evidence of bone marrow neli ma present within these vertebrae indicating that these are chronic findings. There is no evidence of retropulsion of bone into the spinal canal from these compression fractures. There is extensive diffuse abnormal signal within the visualized bony structures. The conus medullaris is located posterior to the T12/L1 disc space level. There is no evidence of abnormality of the lumbar nerve roots. Disc spaces: L1/2:At this level, there is no significant disc pathology. There is no significant neural foraminal stenosis or spinal stenosis. L2/3:At this level, there is no significant disc pathology. There is no significant neural foraminal stenosis or spinal stenosis. L3/4:At this level, there is no significant disc pathology. There is facet and ligamentous hypertroph y present. There is no significant neural foraminal stenosis or spinal stenosis. L4/5: At this level, there is a minimal diffuse disc bulge. There is facet and ligamentous hypertroph y. There is no significant spinal stenosis or neural foraminal stenosis present at this level. L5/S1:At this level, there is no significant disc pathology. There is mild facet and ligamentous hype rtrophy. There is no significant neural foraminal stenosis or spinal stenosis. Following the administration of gadolinium contrast, there is no abnormal contrast enhancement identi fied. IMPRESSION: Diffuse abnormal signal throughout all visualized bony structures. Chronic appearing T12 and L2 compression fractures. There is no evidence of significant disc pathology. There is no signifi cant neural foraminal stenosis or spinal stenosis identified. Report Dictated By: Angelo Garcia at 05/28/2018 10:39 AM Report E-Signed By: Angelo Garcia at 05/28/2018 11:09 AM WSN:[email or web address]
== END ==
LOC: MRI 08:31
PROVIDERS: ATTEND Internal Medicine Hematology
DX: J34.2 Deviated nasal septum (principal)
CPT/HCPCS: 70030; 72158; A9577

== ENCOUNTER → 2018-07-26 | Outpatient (CLI) | payer OTHER ==
[2018-01-22 10:27] VITALS: BMI 24.5
[~2018-07-26] MED LIST changes: -GADOBENATE 529MG/1ML 15ML VIAL IVP ONE
== END ==
LOC: SPU 13:56
PROVIDERS: ATTEND Internal Medicine Hematology
DX: C91.01 Acute lymphoblastic leukemia, in remission (principal)

== ENCOUNTER 2018-08-19 14:01 | Outpatient (RCR) | payer OTHER ==
[2018-01-22 10:27] VITALS: Wt 59.5 kg
[2018-07-19 15:33] LABS: PLATELET COUNT, AUTOMATED 448 K/uL (150-450)
[2018-08-19 14:28] VITALS: BP 146/89
--- NOTE | 2018-08-19 21:19 | ONCOLOGY FOLLOW UP NOTE ---
EVENT DATE: August 19, 2018 DIAGNOSES 1. Acute lymphoblastic leukemia, status post chemotherapy and allogeneic bone marrow transplant, in remission. 2. Loolh-dcucwk-tpru disease. CHIEF COMPLAINT The patient is here today for followup of his ALL and chronic hwnln-bhaush-frgi disease. ONCOLOGY HISTORY The patient is a 33-year-old male who was diagnosed in April 2003 with acute lymphoblastic leukemia and, as per patient, he was treated with chemotherapy for seven months, but he did not have any maintenance therapy after that. He had a relapse in April 2006, treated with chemotherapy for one month, followed by allogenic bone marrow transplant from his sister who was a donor and, as per patient, he had his treatment at [facility]. He developed ddrwl-fequve-atbe disease and was on immunosuppressant, which was discontinued by the patient two and a half years ago. He claims that since August 2014, the patient had started to have cough with increasing shortness of breath, especially on exertion. He moved to [place] since July 2013. He has been seen by Sherley Hameed PA-C, his primary care, who requested a CBC recently which showed white count of 8.9, hemoglobin 15.4, hematocrit 35.8, platelets 373,000. His absolute lymphocytic count was high at 4512. HISTORY OF PRESENT ILLNESS The patient is here today for followup of his acute lymphoblastic anemia and the chronic ugvue-higehm-ljzx disease, on Prograf. Patient had severe pneumonia in January 2018, required nearly a month of hospitalization and two weeks in ICU with artificial ventilation. He is doing fine currently. He is complaining of pain in the knees and shoulders. He has some neuropathy in the toes, but other than that, he is doing fine. PAST MEDICAL HISTORY 1. Acute lymphoblastic leukemia. 2. Status post allogenic bone marrow transplant. 3. Cataract. 4. Zqzyv-lxbytp-fzhe disease, mainly affecting the skin. PAST SURGICAL HISTORY 1. In April 2003, he had biopsy of the right foot. 2. In May 2003, he had implanted port in the left chest. 3. In April 2006, he had implanted port in the left chest. SOCIAL HISTORY The patient is . He does not have children. 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 He denies any abuse of tobacco, alcohol, or drugs. FAMILY HISTORY Not applicable. CURRENT MEDICATIONS 1. Albuterol two puffs three times daily. 2. Pepcid one tablet as needed. 3. Prograf 3 mg a.m., 2 mg p.m. 4. Acyclovir 800 mg twice daily. 5. Septra DS one tablet daily. ALLERGIES AMBISOME which causes anaphylaxis; PENICILLIN which causes skin rash. REVIEW OF SYSTEMS CONSTITUTIONAL: No appetite or weight change. No fever, chills, or sweating. No recent infection. HEENT: Ears: No tinnitus or hearing problem. Nose: The patient has nasal discharge. Throat: No sore throat or mouth ulcers. Eyes: No diplopia or visual changes. RESPIRATORY: No shortness of breath. No cough, expectoration, or hemoptysis. CARDIOVASCULAR: No chest pain, orthopnea, or paroxysmal nocturnal dyspnea (PND). No edema. No palpitations. GASTROINTESTINAL: No nausea or vomiting. No diarrhea or constipation. No change in bowel movements. No heartburn or swallowing difficulties. No abdominal pain. No jaundice. No hematemesis, melena, or rectal bleeding. GENITOURINARY: No hematuria or dysuria. MUSCULOSKELETAL: He has pain in the knees and shoulders. NEUROLOGIC: He has numbness in the toes. No headaches or convulsions. PHYSICAL EXAMINATION GENERAL: Looks stable. Well developed, well nourished, and in no acute distress. VITAL SIGNS: Blood pressure 146/89, pulse 104 per minute, respirations 16 per minute, temperature 97.6, pulse ox 94% on room air. HEENT: Head: Atraumatic. No sinus tenderness to palpation. Eyes: No icterus or conjunctivitis. Mouth and Throat: No oral thrush or mucositis. NECK: Supple. No cervical or supraclavicular lymphadenopathy. LUNGS: Clear to auscultation and percussion bilaterally. HEART: Regular rate and rhythm. No gallops, murmurs, clicks, or rubs. ABDOMEN: Soft and lax. No tenderness. No hepatosplenomegaly. No masses. EXTREMITIES: No cyanosis, clubbing, or edema. LYMPHATICS: No peripheral lymphadenopathy. NEUROLOGICAL: Conscious, alert, and oriented times three. No focal motor or sensory deficits. PSYCHIATRIC: Mood and affect appear normal. SKIN: There is a rough area, whitish in color, scaly, and very dry on the ventral aspect of the right elbow area. DIAGNOSTIC DATA CBC showed white count 12.5, hemoglobin 15.8, hematocrit 45.8, platelets 442,000. Absolute neutrophil count is high at 5800. Chem panel totally normal except blood sugar 127. ASSESSMENT 1. Acute lymphoblastic leukemia, status post chemotherapy in 2002 with relapse in 2005, status post chemotherapy, followed by allogeneic bone marrow transplant, currently in remission. CBC today is normal except for absolute lymphocytosis of 5800. I am planning to get a flow cytometry of the peripheral blood for further evaluation, and if it is negative for lymphoma and leukemia panel, I am planning to see him again in 4 months with CBC, chemistry panel, LDH, and uric acid. 2. 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 The patient currently is on Prograf 5 mg per day. Will continue the same. 3. Depression in the past. Patient is not on any medications currently. PLAN 1. Continue followup. 2. Patient to return in 4 months with CBC, chem panel, LDH, uric acid. 3. Flow cytometry of the peripheral blood. 4. Patient to contact us for any new concerns or complaints. JOSE MANUELD
== END 2018-08-25 07:47 | disposition home or self-care (01) ==
LOC: ONC 14:01
PROVIDERS: ATTEND Internal Medicine Hematology
DX: C91.01 Acute lymphoblastic leukemia, in remission (principal)
CPT/HCPCS: 36415; 82040; 82247; 82310; 82374; 82435; 82565; 82947; 83615; 84075; 84132; 84155; 84295; 84450; 84460; 84520; 84550; 85025; 88184; 88185; 88189; 99212

== ENCOUNTER 2018-08-26 08:00 | Outpatient (RCR) | payer OTHER ==
[2018-01-22 10:27] VITALS: BMI 24.5
[2018-09-02 15:32] VITALS: BP 129/85
== END 2018-09-22 12:10 | disposition home or self-care (01) ==
LOC: ONC 08:00
PROVIDERS: ATTEND Internal Medicine Hematology
DX: C91.01 Acute lymphoblastic leukemia, in remission (principal)
CPT/HCPCS: 36415; 81342

== ENCOUNTER 2018-11-19 07:59 | Outpatient (RCR) | payer SELFPAY ==
[2018-01-22 10:27] VITALS: Wt 60.0 kg
--- NOTE | 2018-09-30 14:25 | NUR ---
Called and spoke to patient and reviewed the T-Cell clonality screening with him as per Dr. Herron's instructions. He verbalized understanding and stated that he will be back to see Dr. Ann in November 2018. Patient agrees with the plan of care.
[2018-11-17 14:06] LABS: PLATELET COUNT, AUTOMATED 430 K/uL (150-450)
[2018-11-19 08:03] VITALS: BP 126/91
--- NOTE | 2018-11-19 10:00 | EL-TAR[facility] ONCOLOGY NOTE ---
EVENT DATE: November 19, 2018 DIAGNOSES 1. Acute lymphoblastic leukemia, status post chemotherapy and allogeneic bone marrow transplant, in remission. 2. Dgesh-zkzfqw-tmka disease. CHIEF COMPLAINT The patient is here today for followup of his ALL and chronic pltxb-fkohpq-wmof disease. ONCOLOGY HISTORY The patient is a 33-year-old male who was diagnosed in April 2003 with acute lymphoblastic leukemia and, as per patient, he was treated with chemotherapy for seven months, but he did not have any maintenance therapy after that. He had a relapse in April 2006, treated with chemotherapy for one month, followed by allogenic bone marrow transplant from his sister who was a donor and, as per patient, he had his treatment at [facility]. He developed dicmc-utelif-vsqv disease and was on immunosuppressant, which was discontinued by the patient two and a half years ago. He claims that since August 2014, the patient had started to have cough with increasing shortness of breath, especially on exertion. He moved to [place] since July 2013. He has been seen by Sherley Hameed PA-C, his primary care, who requested a CBC recently which showed white count of 8.9, hemoglobin 15.4, hematocrit 35.8, platelets 373,000. His absolute lymphocytic count was high at 4512. HISTORY OF PRESENT ILLNESS The patient is here today for followup of his acute lymphoblastic leukemia and the chronic qrfas-pqgfmg-bgms disease, on Prograf. He is doing fine currently. He is totally asymptomatic at this visit except for some skin problem which is chronic from his chronic wzyuz-mxhafo-ifnk disease. 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 PAST MEDICAL HISTORY 1. Acute lymphoblastic leukemia. 2. Status post allogenic bone marrow transplant. 3. Cataract. 4. Xdwoc-whlgdd-crdi disease, mainly affecting the skin. PAST SURGICAL HISTORY 1. In April 2003, he had biopsy of the right foot. 2. In May 2003, he had implanted port in the left chest. 3. In April 2006, he had implanted port in the left chest. SOCIAL HISTORY The patient is . He does not have children. 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 He is exposed to dust, diesel exhaust, solvents, brake glass cleaner. He denies any abuse of tobacco, alcohol, or drugs. FAMILY HISTORY Not applicable. CURRENT MEDICATIONS 1. Albuterol two puffs three times daily. 2. Pepcid one tablet as needed. 3. Prograf 3 mg a.m., 2 mg p.m. 4. Acyclovir 800 mg twice daily. 5. Septra DS one tablet daily. ALLERGIES AMBISOME which causes anaphylaxis; PENICILLIN which causes skin rash. REVIEW OF SYSTEMS CONSTITUTIONAL: No appetite or weight change. No fever, chills, or sweating. No recent infection. HEENT: Ears: No tinnitus or hearing problem. Nose: The patient has nasal discharge. Throat: No sore throat or mouth ulcers. Eyes: No diplopia or visual changes. RESPIRATORY: No shortness of breath. No cough, expectoration, or hemoptysis. CARDIOVASCULAR: No chest pain, orthopnea, or paroxysmal nocturnal dyspnea (PND). No edema. No palpitations. GASTROINTESTINAL: No nausea or vomiting. No diarrhea or constipation. No change in bowel movements. No heartburn or swallowing difficulties. No abdominal pain. No jaundice. No hematemesis, melena, or rectal bleeding. GENITOURINARY: No hematuria or dysuria. MUSCULOSKELETAL: He has pain in the knees and shoulders. NEUROLOGIC: He has some tingling in the toes, which is better. SKIN: He has skin reaction sometimes. PHYSICAL EXAMINATION GENERAL: Looks stable. Well developed, well nourished, and in no acute distress. VITAL SIGNS: Blood pressure 126/91, pulse 79 per minute, respirations 16 per minute, temperature 97.8, pulse ox 95% on room air. HEENT: Head: Atraumatic. No sinus tenderness to palpation. Eyes: No icterus or conjunctivitis. Mouth and Throat: No oral thrush or mucositis. NECK: Supple. No cervical or supraclavicular lymphadenopathy. LUNGS: Clear to auscultation and percussion bilaterally. HEART: Regular rate and rhythm. No gallops, murmurs, clicks, or rubs. ABDOMEN: Soft and lax. No tenderness. No hepatosplenomegaly. No masses. EXTREMITIES: No cyanosis, clubbing, or edema. LYMPHATICS: No peripheral lymphadenopathy. NEUROLOGICAL: Conscious, alert, and oriented times three. No focal motor or sensory deficits. PSYCHIATRIC: Mood and affect appear normal. SKIN: There is a rough area, whitish in color, scaly, and very dry on the ventral aspect of the right elbow area. DIAGNOSTIC DATA CBC showed white count 14.5, hemoglobin 15.9, hematocrit 48.1, platelets 430,000. Absolute neutrophil count is 6.1, which is up from 5.8. Chem panel totally normal except creatinine 0.6, total protein 8.3, albumin 4.5. Flow cytometry of the peripheral blood done on August 19, 2018, showed phenotypically normal myeloid cells and small population of atypical CD4 positive, CD26 negative T-cells representing 7% of the total leukocytes as well as a small population of atypical mature CD4 and CD8 coexpression large granular lymphocyte like T-cells (dim to negative). CD7 representing 5% of the total leukocytes. 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 ASSESSMENT 1. Acute lymphoblastic leukemia, status post chemotherapy in 2002 with relapse in 2005, status post chemotherapy followed by allogeneic bone marrow transplant, currently in remission. CBC is normal except for absolute lymphocytosis of 6,000, which is up from 5,800. I am planning to continue followup. I will see him again in three to four months when he will come back from [place], as he is working there, with CBC, chem panel, LDH and uric acid at that time. 2. Lymphocytosis. Flow cytometry showed small population of atypical CD4 positive, CD26 negative T-cells representing 7% of the total leukocytes as well as a small population of atypical mature CD4 and CD8 coexpression large granular lymphocyte like T-cells, dim to negative CD7 representing 5% of the total leukocytes. T-cell clonality screening by PCR showed a small population of TCR gamma gene rearrangement in a polyclonal background that is close to the threshold of positivity. I am planning to continue to monitor this abnormal population of T-cell lymphocytes but currently no hematological intervention is required. 2. 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 The patient is currently on Prograf 5 mg per day. Will continue the same. PLAN 1. Continue followup. 2. Patient to return in 3-4 months with CBC, chem panel, LDH, uric acid. 3. Patient to contact us for any new concerns or complaints. [facility]
== END 2019-02-14 ==
LOC: ONC 07:59
PROVIDERS: ATTEND Internal Medicine Hematology
DX: C91.01 Acute lymphoblastic leukemia, in remission (principal); D89.811 Chronic graft-versus-host disease; Z92.21 Personal history of antineoplastic chemotherapy; Z94.81 Bone marrow transplant status
CPT/HCPCS: 36415; 82040; 82247; 82310; 82374; 82435; 82565; 82947; 83615; 84075; 84132; 84155; 84295; 84450; 84460; 84520; 84550; 85025; 99212